=== PATIENT | female | born 1955 | race Caucasian/White ===

== ENCOUNTER 2022-02-04 10:49 | Outpatient (REF) | payer MEDICARE, SELFPAY ==
[2022-02-04 11:16] LABS: Anion Gap 12 (12-20); Blood Urea Nitrogen 10 mg/dL (9-16); Carbon Dioxide 27 mmol/L (22-29); Chloride 104 mmol/L (96-108); Estimated Glomerular Filt Rate > 60; Potassium 4.5 mmol/L (3.3-5.1); Sodium 138 mmol/L (135-145)
== END 2022-02-04 10:50 | disposition home or self-care (01) ==
LOC: HO.LNP 10:49
PROVIDERS: Visit Provider Internal Medicine
DX: I51.81 Takotsubo syndrome (principal)
CPT/HCPCS: 80051; 82565; 84520

== ENCOUNTER 2022-03-28 12:19 | Outpatient (REF) | payer MEDICARE, SELFPAY ==
--- NOTE | ~2022-03-28 | MM_ITS ---
EXAMINATION: MM SCREENING DIGITAL BREAST TOMOSYNTHESIS, BILATERAL CLINICAL INFORMATION: Screening. Asymptomatic. Status post left breast lumpectomy in 2006 COMPARISON: Mammography: None TECHNIQUE: Digital breast tomosynthesis is performed in both the craniocaudal and mediolateral oblique views along with computer-aided detection (CAD). Synthesized 2D images are generated from the tomosynthesis. FINDINGS: The breasts are almost entirely fatty (ACR BI-RADS breast composition Category a). There are no significant masses, abnormal calcifications, or other suspicious abnormalities. Postsurgical changes within the left breast seen. MM/MM tomosynthesis screening BI IMPRESSION: No mammographic evidence of malignancy. ASSESSMENT: BI-RADS 2: Benign RECOMMENDATION: Routine annual mammography screening. This patient's information was entered into a reminder system with a target due date for their next mammogram.
--- NOTE | ~2022-03-28 | MM_ITS ---
EXAMINATION: BONE DENSITOMETRY CLINICAL INDICATION: Menopause. COMPARISON: None (current study represents initial baseline exam). TECHNIQUE: Using a [employer] DXA System (software version: 13.1) manufactured by [employer], dual-energy x-ray absorptiometry was performed of the lumbar spine and left hip. The images are of good technical quality. Summary results are attached. FINDINGS: AP SPINE L1-L4: BMD 0.810 g/cm2, Z-score -1.4, T-score -3.1, osteoporosis. LEFT FEMUR, NECK: BMD 0.695 g/cm2, Z-score -0.9, T-score -2.5, osteoporosis. LEFT FEMUR, TOTAL: BMD 0.737 g/cm2, Z-score -0.9, T-score -2.1, osteopenia. IDENTIFIED RISK FACTORS: Menopause, osteoporosis, rheumatoid arthritis, secondary osteoporosis. HISTORY OF FRACTURE: None listed. MEDICATIONS: Vitamin D. MM/XR DEXA axial skeleton IMPRESSION: 1. DIAGNOSIS: Osteoporosis based on the lowest T-score value of -3.1 in the lumbar spine applying World Health Organization criteria. 2. 10-YEAR FRACTURE RISK PREDICTION, FRAX: According to the guidelines, FRAX calculation should only be performed on patients in the osteopenia bone density category. Therefore, FRAX was not performed on this patient. 3. Treatment Recommendations: NOF guidelines recommend consideration for treatment in postmenopausal women and men age 50 and older presenting with the following: -A hip or vertebral (clinical or morphometric) fracture. -T-score less than or equal to -2.5 at the femoral neck or spine after appropriate evaluation to exclude secondary causes. -Low bone mass at the hip or spine and a 10-year fracture probability by FRAX of greater than or equal to 3% for hip fracture or greater than or equal to 20% for major osteoporotic fracture based on the [place] adapted WHO algorithm. 4. Other Recommendations: All treatment decisions require clinical judgment and consideration of individual patient factors, including patient preferences, comorbidities, previous drug use, risk factors not captured in the FRAX model (e.g. frailty, falls, vitamin D deficiency, increased bone turnover, interval significant decline in bone density) and possible under or overestimation of fracture risk by FRAX. Additional medical evaluation for secondary cause of low bone mineral density may be appropriate. FUTURE SCAN RECOMMENDATION: People with diagnosed cases of osteoporosis or at high risk for fracture should have regular bone mineral density tests. For patients eligible for Medicare, routine testing is allowed once every 2 years. The testing frequency can be increased to one year for patients who have rapidly progressing disease, those who are receiving or discontinuing medical therapy to restore bone mass, or have additional risk factors.
== END 2022-03-28 12:20 | disposition home or self-care (01) ==
LOC: HO.MAMMO 12:19
PROVIDERS: PCP Internal Medicine; Visit Provider Internal Medicine
DX: Z12.31 Encounter for screening mammogram for malignant neoplasm of breast (principal); Z13.820 Encounter for screening for osteoporosis; Z78.0 Asymptomatic menopausal state; Z85.3 Personal history of malignant neoplasm of breast
CPT/HCPCS: 77063; 77067; 77080

== ENCOUNTER 2022-06-28 16:25 | Outpatient (REF) | payer MEDICARE, SELFPAY ==
--- NOTE | ~2022-06-28 | XR_ITS ---
EXAMINATION: XR HIP, RIGHT CLINICAL INFORMATION: Hip pain COMPARISON: CT abdomen and pelvis 02/02/2020. TECHNIQUE: AP view pelvis is performed along with AP and frog-lateral projections of the right hip. FINDINGS: No fracture or dislocation or destructive process. There are degenerative changes lower lumbar spine with disc narrowing and vertebral spurring L4-L5. The SI joints and pubis are unremarkable. Right hip shows no fracture or dislocation or destructive process. No focal disc narrowing or erosive change or chondrocalcinosis. Left hip unremarkable. XR/XR hip RT w [id number] IMPRESSION: -Normal right hip. -Degenerative disc changes lower lumbar spine.
== END 2022-06-28 16:26 | disposition home or self-care (01) ==
LOC: HO.XRAY 16:25
PROVIDERS: PCP Internal Medicine; Visit Provider Internal Medicine
DX: M25.551 Pain in right hip (principal)
CPT/HCPCS: 73502

== ENCOUNTER → 2022-08-27 12:52 | Outpatient (BNVA) | payer MEDICARE, SELFPAY | PROVIDERS: PCP Internal Medicine; Visit Provider Internal Medicine Endocrinology, Diabetes & Metabolism | DX: M81.0 Age-related osteoporosis without current pathological fracture (principal); E16.2 Hypoglycemia, unspecified; Q78.8 Other specified osteochondrodysplasias | CPT/HCPCS: 99202 ==

== ENCOUNTER 2023-02-28 11:08 | Outpatient (REF) | payer MEDICARE, SELFPAY ==
[2023-02-28 11:10] LABS: MANUAL DIFF FLAG NO
[2023-02-28 11:36] LABS: Basophils Absolute Auto 0.1 X10*3/uL (0.0-0.2); Basophils Percent Auto 1.4 % (0-2); Eosinophils Absolute Auto 0.4 X10*3/uL (0.0-0.4); Eosinophils Percent Auto 7.4 % (0-4); Hematocrit 37.5 % (37.0-47.0); Hemoglobin 12.1 g/dl (12.0-16.0); Imm Gran Abs Auto 0.01 X10*3/uL (0.00-0.03); Imm Gran Pct Auto 0.2 % (0.0-0.4); Lymphocytes Absolute Auto 1.7 X10*3/uL (1.2-4.9); Lymphocytes Percent Auto 32.9 % (20-40); Mean Corpuscular HGB Conc 32.3 g/dl (31.0-35.0); Mean Corpuscular Hemoglobin 32.1 pg (27.0-33.0); Mean Corpuscular Volume 99.5 fL (80.0-98.0); Mean Platelet Volume 12.8 fL (9.4-12.3); Monocytes Absolute Auto 0.7 X10*3/uL (0.1-1.2); Monocytes Percent Auto 13.1 % (2-11); Neutrophils Absolute Auto 2.3 x10*3/uL (2.0-8.3); Platelet Count 262 X10*3/uL (160-400); Red Blood Count 3.77 X10*6/uL (4.20-5.50); Red Cell Distribution Width 12.2 % (11.0-16.0)
[2023-02-28 11:38] LABS: Appearance Urine Clear; Color Urine Dark Yellow; Glucose Urine UA Negative (Negative); Leukocyte Esterase Urine Trace (Negative); Nitrite Urine Negative (Negative); UMIC TRIGGER UACC YES; Urine Blood Negative (Negative); Urine Ketones Negative (Negative); Urine Protein Negative (Neg-Trace)
[2023-02-28 11:41] LABS: Bacteria Urine None Seen (None Seen); Hyaline Casts Urine 0-2 /LPF (0-2); RBC Urine 0-2 /HPF (0-2); WBC Urine 0-5 /HPF (0-5)
[2023-02-28 11:50] LABS: Alanine Aminotransferase 13 U/L (0-31); Albumin Level 3.8 g/dL (3.5-5.0); Alkaline Phosphatase 65 U/L (39-117); Anion Gap 13 (12-20); Aspartate Amino Transferase 18 U/L (5-31); Bilirubin Total 0.7 mg/dL (0.0-1.0); Blood Urea Nitrogen 10 mg/dL (9-16); Calcium 9.1 mg/dL (8.4-10.2); Carbon Dioxide 26 mmol/L (22-29); Chloride 106 mmol/L (96-108); Cholesterol 251 mg/dL; Estimated Glomerular Filt Rate > 60; Glucose Fasting 92 mg/dL (60-99); HDL Cholesterol 52 mg/dL; LDL Cholesterol Calculated 182 mg/dl; Potassium 4.1 mmol/L (3.3-5.1); Sodium 141 mmol/L (135-145); Total Protein 6.2 g/dL (6.5-8.0); Triglycerides 87 mg/dL
== END 2023-02-28 11:09 | disposition home or self-care (01) ==
LOC: HO.LNP 11:08
PROVIDERS: Visit Provider Internal Medicine
DX: Z00.00 Encounter for general adult medical examination without abnormal findings (principal); E78.00 Pure hypercholesterolemia, unspecified
CPT/HCPCS: 80053; 80061; 81001; 85025

== ENCOUNTER 2023-03-07 13:56 | Outpatient (REF) | payer MEDICARE, SELFPAY ==
--- NOTE | ~2023-03-07 | US_ITS ---
EXAMINATION: US VENOUS ULTRASOUND WITH DOPPLER LOWER EXTREMITY, LEFT CLINICAL INFORMATION: Swelling COMPARISON: None available. TECHNIQUE: Ultrasound of the deep veins is performed from the hip to the calf with compression sonography and color and pulse Doppler assessment. Spectral analysis with color-flow imaging is performed. FINDINGS: There is normal venous compression and respiratory variation and augmented flow. The visualized common femoral vein, superficial femoral vein, profunda femoral vein, popliteal vein, and the trifurcation region shows no evidence of deep venous thrombosis. There is no significant popliteal fossa cyst. US/US venous duplex LE LT IMPRESSION: No DVT demonstrated in the left lower extremity.
== END 2023-03-07 13:57 | disposition home or self-care (01) ==
LOC: HO.US 13:56
PROVIDERS: PCP Internal Medicine; Visit Provider Internal Medicine
DX: M79.89 Other specified soft tissue disorders (principal)
CPT/HCPCS: 93971

== ENCOUNTER 2023-04-25 10:10 | Outpatient (REF) | payer MEDICARE, SELFPAY ==
[2023-04-25 12:49] LABS: Adenovirus F 40/41 Not Detected (Not Detect.); Astrovirus Not Detected (Not Detect.); Campylobacter Not Detected (Not Detect.); Cryptosporidium Not Detected (Not Detect.); Cyclospora cayetanensis Not Detected (Not Detect.); E. coli EAEC Not Detected (Not Detect.); E. coli EPEC Not Detected (Not Detect.); E. coli ETEC Not Detected (Not Detect.); E. coli STEC Not Detected (Not Detect.); Entamoeba histolytica Not Detected (Not Detect.); Giardia lamblia Not Detected (Not Detect.); Norovirus GI/GII Not Detected (Not Detect.); Plesiomonas shigelloides Not Detected (Not Detect.); Rotavirus A Not Detected (Not Detect.); Salmonella Not Detected (Not Detect.); Sapovirus Not Detected (Not Detect.); Shigella sp./EIEC Not Detected (Not Detect.); Vibrio Not Detected (Not Detect.); Vibrio Cholerae Not Detected (Not Detect.); Yersinia enterocolitica Not Detected (Not Detect.)
== END 2023-04-25 10:11 | disposition home or self-care (01) ==
LOC: HO.LNP 10:10
PROVIDERS: Visit Provider Internal Medicine
DX: R19.7 Diarrhea, unspecified (principal)
CPT/HCPCS: 87507

== ENCOUNTER 2023-06-02 16:10 | Outpatient (REF) | payer MEDICARE, SELFPAY | END 2023-06-02 16:11 | disposition home or self-care (01) | LOC: HO.LNP 16:10 | PROVIDERS: Visit Provider Internal Medicine | DX: N39.0 Urinary tract infection, site not specified (principal) | CPT/HCPCS: 81001; 87086 ==

== ENCOUNTER 2023-09-05 11:26 | Outpatient (REF) | payer MEDICARE, SELFPAY ==
[2023-09-05 11:55] LABS: Cholesterol 189 mg/dL (<200); HDL Cholesterol 30 mg/dL (>40); LDL Cholesterol Calculated 128 mg/dL (<100); Triglycerides 156 mg/dL (<150)
[2023-09-05 11:59] LABS: Alanine Aminotransferase 26 U/L (0-31); Albumin Level 3.1 g/dL (3.5-5.0); Alkaline Phosphatase 85 U/L (39-117); Aspartate Amino Transferase 33 U/L (5-31); Bilirubin Direct 0.2 mg/dL (0.0-0.5); Bilirubin Total 0.4 mg/dL (0.0-1.0); Total Protein 6.2 g/dL (6.5-8.0)
[2023-09-05 15:05] LABS: Reflex LDLD? No
== END 2023-09-05 11:27 | disposition home or self-care (01) ==
LOC: HO.LNP 11:26
PROVIDERS: Visit Provider Internal Medicine
DX: E78.00 Pure hypercholesterolemia, unspecified (principal)
CPT/HCPCS: 80061; 80076

== ENCOUNTER 2023-09-11 11:45 | Outpatient (REF) | payer MEDICARE, SELFPAY ==
[2023-09-11 12:28] LABS: Appearance Urine Clear; Color Urine Yellow; Glucose Urine UA Negative (Negative); Leukocyte Esterase Urine Moderate (2+) (Negative); Nitrite Urine Positive (Negative); PH 5.5 (5.0-9.0); Specific Gravity - Urine 1.015 (1.005-1.025); UMIC TRIGGER UACC YES; Urine Blood Trace (Negative); Urine Ketones Negative (Negative); Urine Protein Trace mg/dL (Neg-Trace)
[2023-09-11 12:31] LABS: Bacteria Urine 4+ (None Seen); Hyaline Casts Urine 0-2 /LPF (0-2); RBC Urine 0-2 /HPF (0-2); UACC Culture Trigger YES; WBC Urine >50 /HPF (0-5)
== END 2023-09-11 11:46 | disposition home or self-care (01) ==
LOC: HO.LNP 11:45
PROVIDERS: Visit Provider Internal Medicine
DX: N39.0 Urinary tract infection, site not specified (principal)
CPT/HCPCS: 81001; 87086; 87088; 87186

== ENCOUNTER 2023-10-13 13:14 | Outpatient (REF) | payer MEDICARE, SELFPAY ==
[2023-10-13 13:44] LABS: Alanine Aminotransferase 28 U/L (0-31); Albumin Level 3.2 g/dL (3.5-5.0); Alkaline Phosphatase 66 U/L (39-117); Anion Gap 10 (12-20); Aspartate Amino Transferase 26 U/L (5-31); Bilirubin Total 0.6 mg/dL (0.0-1.0); Blood Urea Nitrogen 11 mg/dL (9-16); Calcium 9.2 mg/dL (8.4-10.2); Carbon Dioxide 27 mmol/L (22-29); Chloride 107 mmol/L (96-108); Estimated Glomerular Filt Rate > 60; Glucose Random 101 mg/dL (60-115); Iron 128 mcg/dL (30-160); Magnesium 1.9 mg/dL (1.6-2.6); Percent Iron Saturation 55 % (15-50); Potassium 3.9 mmol/L (3.3-5.1); Sodium 140 mmol/L (135-145); Total Iron Binding Capacity 232 mcg/dL (228-428); Total Protein 6.6 g/dL (6.5-8.0); Unsaturated Iron Binding 104 ug/dL
== END 2023-10-13 13:15 | disposition home or self-care (01) ==
LOC: HO.LNP 13:14
PROVIDERS: Visit Provider Internal Medicine
DX: R25.2 Cramp and spasm (principal)
CPT/HCPCS: 80053; 83540; 83735

== ENCOUNTER 2023-10-20 11:35 | Outpatient (REF) | payer MEDICARE, SELFPAY ==
[2023-10-20 11:50] LABS: Appearance Urine Clear; Color Urine Yellow; Glucose Urine UA Negative (Negative); Leukocyte Esterase Urine Trace (Negative); Nitrite Urine Negative (Negative); UMIC TRIGGER UACC YES; Urine Blood Negative (Negative); Urine Ketones Negative (Negative); Urine Protein Negative (Neg-Trace)
[2023-10-20 11:54] LABS: Bacteria Urine Trace (None Seen); Hyaline Casts Urine 0-2 /LPF (0-2); RBC Urine 0-2 /HPF (0-2); WBC Urine 0-5 /HPF (0-5)
== END 2023-10-20 11:36 | disposition home or self-care (01) ==
LOC: HO.LNP 11:35
PROVIDERS: Visit Provider Internal Medicine
DX: R31.9 Hematuria, unspecified (principal)
CPT/HCPCS: 81001

== ENCOUNTER 2024-01-29 06:49 | Emergency (ER) | payer MEDICARE, SELFPAY ==
--- NOTE | ~2024-01-29 | XR_ITS ---
EXAMINATION: XR WRIST, RIGHT CLINICAL INFORMATION: Pain and swelling COMPARISON: None available. TECHNIQUE: PA, lateral, and oblique views of the right wrist. Dedicated scaphoid view. FINDINGS: The bones and soft tissues are normal. No fracture. Positive ulnar variance. Normal joint spaces. No erosions or abnormal soft tissue calcifications. XR/XR wrist RT min 3V IMPRESSION: No acute bony abnormality.
[2024-01-29 07:04] VITALS: BP 146/49; PULSE 81; RESP 16; TEMP 36; O2SAT 99; BMI 23.0
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
--- NOTE | 2024-01-29 09:19 | PC.NURSE ---
PT HAS BEEN SPLINTED FOR COMFORT WITH GOOD CMS NOTED
== END 2024-01-29 09:22 | disposition home or self-care (01) ==
PROVIDERS: Emergency Provider Emergency Medicine
DX: S63.501A Unspecified sprain of right wrist, initial encounter (principal); M25.531 Pain in right wrist; V47.5XXA Car driver injured in collision with fixed or stationary object in traffic accident, initial encounter; Y93.9 Activity, unspecified; Y92.410 Unspecified street and highway as the place of occurrence of the external cause; Y99.8 Other external cause status; Z79.899 Other long term (current) drug therapy
CPT/HCPCS: 73110; 99282; 99283

== ENCOUNTER 2024-04-22 11:12 | Outpatient (REF) | payer MEDICARE, SELFPAY ==
[2024-04-22 11:37] LABS: Appearance Urine Clear; Color Urine Yellow; Glucose Urine UA Negative (Negative); Leukocyte Esterase Urine Moderate (2+) (Negative); Nitrite Urine Negative (Negative); UMIC TRIGGER UACC YES; Urine Blood Negative (Negative); Urine Ketones Negative (Negative); Urine Protein Negative (Neg-Trace)
[2024-04-22 12:20] LABS: Bacteria Urine None Seen (None Seen); Hyaline Casts Urine 0-2 /LPF (0-2); RBC Urine 0-2 /HPF (0-2); WBC Urine 0-5 /HPF (0-5)
== END 2024-04-22 11:13 | disposition home or self-care (01) ==
LOC: HO.LNP 11:12
PROVIDERS: Visit Provider Internal Medicine
DX: N39.0 Urinary tract infection, site not specified (principal)
CPT/HCPCS: 81001

== ENCOUNTER 2024-04-29 11:12 | Outpatient (REF) | payer MEDICARE, SELFPAY ==
[2024-04-29 11:15] LABS: MANUAL DIFF FLAG NO
[2024-04-29 11:46] LABS: Appearance Urine Clear; Color Urine Yellow; Glucose Urine UA Negative (Negative); Leukocyte Esterase Urine Negative (Negative); Nitrite Urine Negative (Negative); PH 5.5 (5.0-9.0); Specific Gravity - Urine 1.015 (1.005-1.025); Urine Blood Negative (Negative); Urine Ketones Negative (Negative); Urine Protein Negative (Neg-Trace)
[2024-04-29 11:48] LABS: Basophils Percent Auto 1.2 % (0-2); Eosinophils Absolute Auto 0.2 X10*3/uL (0.0-0.4); Eosinophils Percent Auto 4.4 % (0-4); Hematocrit 37.4 % (37.0-47.0); Hemoglobin 12.4 g/dl (12.0-16.0); Imm Gran Abs Auto 0.01 X10*3/uL (0.00-0.03); Imm Gran Pct Auto 0.3 % (0.0-0.4); Lymphocytes Absolute Auto 1.2 X10*3/uL (1.2-4.9); Lymphocytes Percent Auto 36.3 % (20-40); Mean Corpuscular HGB Conc 33.2 g/dl (31.0-35.0); Mean Corpuscular Hemoglobin 32.5 pg (27.0-33.0); Mean Corpuscular Volume 98.2 fL (80.0-98.0); Monocytes Absolute Auto 0.4 X10*3/uL (0.1-1.2); Monocytes Percent Auto 12.3 % (2-11); Neutrophils Absolute Auto 1.6 x10*3/uL (2.0-8.3); Neutrophils Percent Auto 45.5 % (45-73); Platelet Count 219 X10*3/uL (160-400); Red Blood Count 3.81 X10*6/uL (4.20-5.50); Red Cell Distribution Width 11.6 % (11.0-16.0); White Blood Count 3.4 X10*3/uL (4.8-10.8)
[2024-04-29 11:49] LABS: Bacteria Urine Trace (None Seen); Hyaline Casts Urine 0-2 /LPF (0-2); RBC Urine 0-2 /HPF (0-2); WBC Urine 0-5 /HPF (0-5)
[2024-04-29 12:05] LABS: Alanine Aminotransferase 20 U/L (0-31); Albumin Level 3.7 g/dL (3.5-5.0); Alkaline Phosphatase 73 U/L (39-117); Anion Gap 14 (12-20); Aspartate Amino Transferase 23 U/L (5-31); Bilirubin Total 0.4 mg/dL (0.0-1.0); Blood Urea Nitrogen 8 mg/dL (9-16); Calcium 9.2 mg/dL (8.4-10.2); Carbon Dioxide 27 mmol/L (22-29); Chloride 106 mmol/L (96-108); Cholesterol 215 mg/dL (<200); Estimated Glomerular Filt Rate > 60; Glucose Fasting 72 mg/dL (60-99); HDL Cholesterol 55 mg/dL (>40); LDL Cholesterol Calculated 142 mg/dL (<100); Potassium 3.8 mmol/L (3.3-5.1); Sodium 143 mmol/L (135-145); Total Protein 6.5 g/dL (6.5-8.0); Triglycerides 92 mg/dL (<150)
== END 2024-04-29 11:13 | disposition home or self-care (01) ==
LOC: HO.LNP 11:12
PROVIDERS: Visit Provider Internal Medicine
DX: Z00.00 Encounter for general adult medical examination without abnormal findings (principal); E78.00 Pure hypercholesterolemia, unspecified
CPT/HCPCS: 80053; 80061; 81001; 85025

== ENCOUNTER 2024-05-20 10:53 | Outpatient (REF) | payer MEDICARE, SELFPAY ==
[2024-05-20 10:56] LABS: MANUAL DIFF FLAG NO
[2024-05-20 10:58] LABS: Basophils Absolute Auto 0.1 X10*3/uL (0.0-0.2); Basophils Percent Auto 1.3 % (0-2); Eosinophils Absolute Auto 0.3 X10*3/uL (0.0-0.4); Eosinophils Percent Auto 7.2 % (0-4); Hemoglobin 11.7 g/dl (12.0-16.0); Imm Gran Abs Auto 0.01 X10*3/uL (0.00-0.03); Imm Gran Pct Auto 0.2 % (0.0-0.4); Lymphocytes Absolute Auto 2.2 X10*3/uL (1.2-4.9); Mean Corpuscular HGB Conc 32.5 g/dl (31.0-35.0); Mean Corpuscular Hemoglobin 32.1 pg (27.0-33.0); Mean Corpuscular Volume 98.9 fL (80.0-98.0); Mean Platelet Volume 12.4 fL (9.4-12.3); Monocytes Absolute Auto 0.6 X10*3/uL (0.1-1.2); Monocytes Percent Auto 13.3 % (2-11); Neutrophils Absolute Auto 1.4 x10*3/uL (2.0-8.3); Platelet Count 221 X10*3/uL (160-400); Red Blood Count 3.64 X10*6/uL (4.20-5.50); Red Cell Distribution Width 11.9 % (11.0-16.0); White Blood Count 4.6 X10*3/uL (4.8-10.8)
== END 2024-05-20 10:54 | disposition home or self-care (01) ==
LOC: HO.LNP 10:53
PROVIDERS: Visit Provider Internal Medicine
DX: D70.9 Neutropenia, unspecified (principal)
CPT/HCPCS: 85025

== ENCOUNTER 2024-05-24 11:51 | Outpatient (REF) | payer MEDICARE, SELFPAY ==
--- NOTE | ~2024-05-24 | MM_ITS ---
EXAMINATION: MM SCREENING DIGITAL BREAST TOMOSYNTHESIS, BILATERAL CLINICAL INFORMATION: Screening. Asymptomatic. There is a history of treated left breast cancer. COMPARISON: Mammography: This study is compared with prior exams dating back to TECHNIQUE: Digital breast tomosynthesis is performed in both the craniocaudal and mediolateral oblique views along with computer-aided detection (CAD). Synthesized 2D images are generated from the tomosynthesis. FINDINGS: There are scattered areas of fibroglandular density (ACR BI-RADS breast composition Category b). There are no significant masses, abnormal calcifications, or other abnormalities. Posttreatment changes are present in the left axilla and medial aspect of the left breast. There is benign, coarse dystrophic calcification in the retroareolar region of the left breast. MM/MM tomosynthesis screening BI IMPRESSION: No mammographic evidence of malignancy. ASSESSMENT: BI-RADS BI-RADS 2 - Benign Findings RECOMMENDATION: Routine annual mammography screening. 1 year F/U This examination should not preclude the clinical evaluation of a suspicious palpable abnormality. This patient's information was entered into a reminder system with a target due date for their next mammogram.
== END 2024-05-24 11:52 | disposition home or self-care (01) ==
LOC: HO.MAMMO 11:51
PROVIDERS: PCP Internal Medicine; Visit Provider Internal Medicine
DX: Z12.31 Encounter for screening mammogram for malignant neoplasm of breast (principal)
CPT/HCPCS: 77063; 77067

== ENCOUNTER → 2024-05-24 12:00 | Outpatient (BNV) | payer MEDICARE, SELFPAY | PROVIDERS: PCP Internal Medicine; Visit Provider Radiology Diagnostic Radiology | DX: Z12.31 Encounter for screening mammogram for malignant neoplasm of breast (principal) | CPT/HCPCS: 77063; 77067 ==

== ENCOUNTER 2024-06-14 14:18 | Outpatient (REF) | payer MEDICARE, SELFPAY ==
--- NOTE | ~2024-06-14 | FL_ITS ---
EXAMINATION: Modified Barium Swallow CLINICAL INFORMATION: Dysphagia COMPARISON: None TECHNIQUE: Modified barium swallow was performed under lateral fluoroscopy with patient in standing position. Barium mixed with solids and liquids of different consistencies was administered by the speech pathologist. Examination was recorded in the fluoroscopy suite. FINDINGS: Trace laryngeal penetration is seen with thin consistency barium. No subglottic aspiration was observed during this examination. FLUOROSCOPY TIME: 1 minute 49 seconds Number of Spot Images: DOSE AREA PRODUCT: 408.8 uGy-m2 (microgray-meter squared) FL/FL barium swallow modified IMPRESSION: Trace laryngeal penetration is seen with thin consistency barium. No subglottic aspiration was observed during this examination. Refer to the full speech therapy report for further clarification This procedure was performed by Carmine Solorzano PA-C, and supervised by Dr. Lee
--- NOTE | 2024-06-15 14:58 | MHC.SL.IMP ---
Date of Plan of Treatment: 06/14/24 Onset of Symptoms/Illness: 06/14/22 Date Treatment Started: 06/14/24 Admitting Diagnosis: T17.928A Food in respiratory tract Primary Speech & Language Diagnosis: R13.12 Oropharyngeal Phase Dysphagia Reason for Today's Visit: 62694 Modified Barium Swallow Study Pre-evaluation Dietary Consistencies: Regular Pre-evaluation Liquid Consistency: Thin Pre-evaluation Medication Administration: Whole with Liquid Medical History: Modified Barium Swallow Study Fluoroscopic Evaluation of Swallowing Function CPT Code 48348 Evaluation Year: 2023 Reason for Study: Patient reporting difficulty swallowing. Referring Physician: Yfn Palmer MD Evaluating Clinician: Hannah Henry MA, CCC-OPTIMIZATION CONSULTANT Study Number: 1 Patient Name: Rabia Wagner Status: Outpatient, Ambulatory Age: 68 Gender: Female Medical History Patient reports history of reflux for 40 years. Current (pre-evaluation) Intake/Diet: Route: PO Diet Grade: Regular Liquid Consistencies: Thin Pre-Study Functional Oral Intake Scale (FOIS): 7- Total oral intake with no restrictions Pain: None reported at time of study SUBJECTIVE: Patient is a 68 year old female referred for a modified barium swallow study by Yfn Palmer MD. Patient reports she has had chronic reflux for 40 years, which had been so severe at one point that she needed to sleep sitting up, and that she also has trouble swallowing for many years. She reports that she ?inhales food, drinks, and even saliva? causing her to cough when swallowing. Additionally, with certain foods, such as vinegar and pepper, her ?tonsil feels like it is on fire.? She has these episodes daily, though she says it does not necessarily happen every time she swallows, but seems to occur at random. Patient denies odynophagia, but says she experiences globus sensation, with pills and vitamins getting stuck in her throat. She says it takes 2 minutes to dislodge the pills when taking multiple sips of water. Her current diet consists of unmodified textures regular solids and thin liquids. She denies avoiding any particular foods at this time. Oral Motor Exam Facial Symmetry: Symmetrical Mouth Occlusion: Normal Oral-Facial Teeth Characteristics: Dentures Oral-Facial Lip Pucker Description: Normal Oral-Facial Smile (Lips) Description: Normal Oral-Facial Puff Cheeks Description: Normal Tongue Size: Normal Tongue Excursion Description: Normal Tongue Range of Movement Description: Normal Tongue Speed of Movement Description: Normal Tongue Strength of Movement (against opposing pressure): Normal Tongue Movement Characteristics: Normal/Absent Food and Liquid Trials: Oral Impairment: Lip Closure: Did not test Oral Impairment: Tongue Control During Bolus Hold: Did not test Oral Impairment: Bolus Preparation/Mastication: 0=Timely and efficient chewing and mashing Oral Impairment: Bolus Transport/Lingual Motion: 1= Delayed initiation of tongue motion Oral Impairment: Oral Residue: 2=Residue collection on oral structures Oral Impairment:Initiation of Pharyngeal Swallow: 3=Bolus head in pyriforms Pharyngeal Impairment: Soft Palate Elevation: 0=No bolus between soft palate (SP)/pharyngeal wall (PW) Pharyngeal Impairment: Laryngeal Elevation: 1=Partial thyroid cartilage/arytenoids to epiglottic petiole movement Pharyngeal Impairment: Anterior Hyoid Excursion: 1=Partial anterior movement Pharyngeal Impairment: Epiglottic Movement: 1=Partial inversion Pharyngeal Impairment: Laryngeal Vestibular Closure:: 1=Incomplete: narrow column air/contrast in laryngeal vestibule Pharyngeal Impairment: Pharyngeal Stripping Wave: 0=Present: complete Pharyngeal Impairment: Pharyngeal Contraction: Did not test Pharyngeal Impairment: Pharyngoesophageal Segment Openin=Complete distension and complete duration: no obstruction of flow Pharyngeal Impairment: Tongue Base (TB) Retraction: 1=Trace column of contrast/air between TB and posterior PW Pharyngeal Impairment: Pharyngeal Residue: 2=Collection of residue within or on pharyngeal structures Pharyngeal Impairment: Esophageal Clearance Upright Position: Did not test Impressions and Recommendations Clinical Observations: OBJECTIVE: Time-out: performed at 15:00 Evaluation Start: 14:30; Stop: 14:45 Patient Positioning: Standing Viewing Planes: LATERAL ONLY Contrast: MBSImP? Standardized Protocol using commercially prepared, standardized Barium viscosities, including: Varibar? THIN LIQUID (40% w/v, <15 cps) , 1/2 Shortbread Cookie (1 x1 x.25 ) MBSImP ID: [id number] MBSImP Results: Lip closure for intraoral bolus containment could not be assessed due to logistical reasons not related to physiologic impairment. Tongue control during bolus hold could not be assessed due to logistical reasons not related to physiologic impairment. Bolus preparation and mastication resulted in timely and efficient chewing and mashing. Bolus transport/lingual motion demonstrated delayed initiation of tongue motion. Oral residue was a collection on oral structures. Initiation of the pharyngeal swallow occurred when the bolus head was in the pyriform sinuses. Soft palate elevation resulted in no bolus between the soft palate and the pharyngeal wall. Laryngeal elevation was decreased, with partial superior movement of the thyroid cartilage/partial approximation of the arytenoids to the epiglottic petiole. Anterior hyoid excursion demonstrated partial anterior movement. Epiglottic movement resulted in partial inversion. Laryngeal vestibular closure was incomplete, with a narrow column of air/contrast noted within the laryngeal vestibule at the height of the swallow. Pharyngeal stripping wave was present and complete. Pharyngeal contraction could not be determined due to logistical reasons not related to physiologic impairment. Pharyngoesophageal segment opening was completely distended for complete duration with no obstruction of bolus flow. Tongue base retraction allowed a trace column of contrast or air between the retracted tongue base and the posterior pharyngeal wall. Pharyngeal residue was a collection of residue within or on pharyngeal structures. Esophageal clearance in the upright position could not be assessed due to logistical reasons not related to physiologic impairment. Oral Impairment Score: 6 (absence of score, component 1component 2) Pharyngeal Impairment Score: 6 (absence of score, component 13) Esophageal Impairment Score: --- (absence of score, component 17) Laryngeal Penetration and Aspiration: Flash Penetration was observed in today's study. Thin Contrast entered the airway, remained above the vocal folds, and was ejected from the airway. ASSESSMENT: This exam was conducted by the radiologist and the speech pathologist. The patient was standing for lateral view only. She was able to feed herself without difficulty and trialed the following liquid and solid consistencies: -Thin (via self-administered cup, taking individual sips and sequential sips) -Puree (applesauce) -Regular solid (shortbread cookie) Patient demonstrated timely and efficient mastication. Lingual transport was mildly delayed in initiation, but with brisk lingual movement. There was pooling of trace residue in the floor of mouth with trials of thin liquids. Mild coating of residue on the tongue with trials of regular texture solid. Residuals were cleared with sips of liquid. Pharyngeal swallow trigger was at times delayed, initiated at the level of the pyriform sinuses. No evidence of nasopharyngeal reflux. Partial laryngeal elevation with partial epiglottic inversion and incomplete laryngeal vestibular closure. There was trace penetration above the vocal folds intermittently when patient took sequential sips of thin liquid. Contrast spontaneously ejected from the airway. No evidence of aspiration during this exam. Trace pooling of liquid in the valleculae and pyriform sinuses with liquids with mild retention with accumulative bites of regular solid texture. Patient was able to eliminate pharyngeal residue with sips of liquid. The following compensatory strategies have not been used until today's study, but when employed, improved swallowing function: Liquid Wash eliminated Oral Residue, Pharyngeal Residue Additional Swallow(s) per Bolus eliminated Oral Residue, Pharyngeal Residue Liquid Intake Recommendation: Thin Liquid Intake Strategies: Small Sips Dietary Recommendations: Regular Medication Administration: Whole with Puree Please contact the pharmacy regarding appropriate crushable or liquid drug formulations that are available whenever modified delivery is recommended. Compensatory Strategies Recommended: Sitting Upright (90 deg), Double Swallow, Small Bites and Sips, Alternate Liquids/Solids, Rate of Ingestion Change Recommendation for Speech Therapy: Text Comment: Intake Recommendations: Route: PO Diet Grade: Regular Liquid Consistencies: Thin Post-Study Functional Oral Intake Scale (FOIS): 7- Total oral intake with no restrictions There was flash penetration above the vocal folds of trace thin liquid when patient took rapid, consecutive sips. Contrast spontaneously ejected from the airway. No evidence of aspiration during this exam. Mild oral and pharyngeal residuals were cleared with liquid wash. Suggested Referrals: The patient might benefit from a referral to: Gastroenterology Indication for Referral: Reports of chronic reflux Therapy Recommendations: Therapy will be discontinued. Further speech therapy is not indicated at this time. Recommend patient to continue unmodified dietary textures- Regular solids and Thin liquids with strategies to maximize safety: -Take small bites of food -Chew food well -Moisten food with sauces and gravies -Avoid foods which are dry or crumbly -Alternate bites of food with sips of liquid -Take small sips, one sip at a time -Avoid drinking quickly or taking consecutive sips -Ensure upright position at 90 degrees during PO intake and maintain for at least 30-45 minutes afterwards Patient may benefit from having a consultation with Gastroenterology given her reports of chronic reflux. Patient is recommended to continue monitoring her dysphagia. If there are any changes or worsening of symptoms, consult with PCP, at which point a repeat-evaluation may be warranted. Clinician - Supplemental, Miscellaneous Communication: It is important to note MBSS objective studies are snapshots in time and Patient function might vary with factors such as time of day or concomitant medical conditions. For this reason, the final treatment plan for this patient should rest with their medical care team. Additional recommendations should be considered with the totality of the Patient in mind. Thank for the opportunity to participate in the care of this patient. If you have any questions about the content of this report, please contact the [facility] at [facility]. Education: Education regarding findings from today's study and plans for therapy were provided to Patient only through Verbal Instruction. Understanding was expressed by the Patient only. [employer] Clinician/Clinical Fellow: No Supervisory Statement: N/A Speech Language Pathologist: Hannah Henry M.A., CCC-OPTIMIZATION CONSULTANT
== END 2024-06-14 14:19 | disposition home or self-care (01) ==
LOC: HO.XRAY 14:18
PROVIDERS: Visit Provider Internal Medicine
DX: R13.12 Dysphagia, oropharyngeal phase (principal); T17.928A Food in respiratory tract, part unspecified causing other injury, initial encounter
CPT/HCPCS: 74230; 92611

== ENCOUNTER → 2024-06-14 14:21 | Outpatient (BNV) | payer MEDICARE, SELFPAY | PROVIDERS: Visit Provider Physician Assistant Surgical | DX: R13.10 Dysphagia, unspecified (principal) | CPT/HCPCS: 74230 ==

== ENCOUNTER 2024-06-23 09:11 | Outpatient (REF) | payer MEDICARE, SELFPAY ==
--- NOTE | ~2024-06-23 | XR_ITS ---
EXAMINATION: XR ELBOW, RIGHT CLINICAL INFORMATION: Carpal tunnel syndrome COMPARISON: None available. TECHNIQUE: AP, lateral, and oblique views of the right elbow. FINDINGS: No fracture or joint effusion. Alignment is anatomic. Joint spaces are maintained. XR/XR elbow RT min 3V IMPRESSION: No acute findings. Study is assigned for dictation on July 12, 2024
== END 2024-06-23 09:12 | disposition home or self-care (01) ==
LOC: HO.HOSX 09:11
PROVIDERS: PCP Internal Medicine; Visit Provider Physical Medicine & Rehabilitation
DX: G56.01 Carpal tunnel syndrome, right upper limb (principal); G56.20 Lesion of ulnar nerve, unspecified upper limb; M25.521 Pain in right elbow; Z87.39 Personal history of other diseases of the musculoskeletal system and connective tissue
CPT/HCPCS: 73080; 99202

== ENCOUNTER 2024-06-23 09:11 | Outpatient (AMB) | payer MEDICARE, SELFPAY ==
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
[2024-06-23 09:18] VITALS: BMI 22.9
== END 2024-06-23 09:57 | disposition home or self-care (01) ==
PROVIDERS: PCP Internal Medicine; Visit Provider Physical Medicine & Rehabilitation
DX: G56.01 Carpal tunnel syndrome, right upper limb (principal); G56.21 Lesion of ulnar nerve, right upper limb; Z87.39 Personal history of other diseases of the musculoskeletal system and connective tissue; M25.521 Pain in right elbow
CPT/HCPCS: 99203; 99213

== ENCOUNTER 2024-07-01 11:06 | Outpatient (REF) | payer MEDICARE, SELFPAY ==
[2024-07-01 11:08] LABS: MANUAL DIFF FLAG NO
[2024-07-01 11:20] LABS: Basophils Absolute Auto 0.1 X10*3/uL (0.0-0.2); Basophils Percent Auto 2.1 % (0-2); Eosinophils Absolute Auto 0.3 X10*3/uL (0.0-0.4); Eosinophils Percent Auto 9.1 % (0-4); Hematocrit 37.8 % (37.0-47.0); Hemoglobin 12.1 g/dl (12.0-16.0); Lymphocytes Absolute Auto 1.7 X10*3/uL (1.2-4.9); Lymphocytes Percent Auto 45.2 % (20-40); Mean Corpuscular Hemoglobin 31.8 pg (27.0-33.0); Mean Corpuscular Volume 99.2 fL (80.0-98.0); Mean Platelet Volume 12.3 fL (9.4-12.3); Monocytes Absolute Auto 0.4 X10*3/uL (0.1-1.2); Monocytes Percent Auto 11.2 % (2-11); Neutrophils Absolute Auto 1.2 x10*3/uL (2.0-8.3); Neutrophils Percent Auto 32.4 % (45-73); Platelet Count 202 X10*3/uL (160-400); Red Blood Count 3.81 X10*6/uL (4.20-5.50); Red Cell Distribution Width 11.9 % (11.0-16.0); White Blood Count 3.7 X10*3/uL (4.8-10.8)
== END 2024-07-01 11:07 | disposition home or self-care (01) ==
LOC: HO.LNP 11:06
PROVIDERS: Visit Provider Internal Medicine
DX: D72.820 Lymphocytosis (symptomatic) (principal)
CPT/HCPCS: 85025

== ENCOUNTER 2024-07-02 13:45 | Outpatient (REF) | payer MEDICARE, SELFPAY ==
--- NOTE | 2024-07-02 13:49 | EMG_ITS ---
Chief complaint: Right hand numbness, see past notes Reason for referral: Evaluate for Carpal Tunnel Syndrome Procedure done: Right upper extremity NCS/EMG Precautions and/or limitations: None The limb temperature was monitored continuously and remained between 32-36 degrees C during the performance of the NCS. Nerve Conduction Studies Anti Sensory Summary Table ?Stim Site NR Onset (ms) Norm Onset (ms) Peak (ms) Norm Peak (ms) O-P Amp (?V) Norm O-P Amp Site1 Site2 Delta-0 (ms) Dist (cm) Noah (m/s) Norm Noah (m/s) Right Median Anti Sensory (2nd Digit) Wrist ? 2.8 3.6 <3.6 13.0 >10 Wrist 2nd Digit 2.8 14.0 50 Right Ulnar Anti Sensory (5th Digit) Wrist ? 0.9 2.9 <3.7 16.7 >15.0 Wrist 5th Digit 0.9 14.0 156 Motor Summary Table ?Stim Site NR Onset (ms) Norm Onset (ms) O-P Amp (mV) Norm O-P Amp iAmp (mV) Amp (1st) (%) Site1 Site2 Delta-0 (ms) Dist (cm) Noah (m/s) Norm Noah (m/s) Right Median Motor (Abd Poll Brev) Wrist ? 3.8 <3.9 9.0 >4.5 10.3 100.0 Elbow Wrist 4.1 22.0 54 >45 Elbow ? 7.9 9.2 10.6 102.2 Right Ulnar Motor (Abd Dig Minimi) Wrist ? 2.7 <3.0 6.9 >5 8.4 100.0 B Elbow Wrist 3.5 21.0 60 >45 B Elbow ? 6.2 6.9 8.2 100.0 A Elbow B Elbow 1.2 10.0 83 >45 A Elbow ? 7.4 7.2 8.6 104.3 Comparison Summary Table ?Stim Site NR Peak (ms) Norm Peak (ms) P-T Amp (?V) Site1 Site2 Delta-P (ms) Norm Delta (ms) Right Median/Radial Dig I Comparison (Digit 1 - 10cm) Median ? 3.3 <2.9 33.4 Median Radial 0.7 Radial ? 2.6 <2.8 12.8 EMG ?Side Muscle Nerve Root Ins Act Fibs Psw Amp Dur Poly Recrt Int Pat Comment Right 1stDorInt Ulnar C8-T1 Nml Nml Nml Nml Nml 0 Nml Complete Right FlexCarRad Median C6-7 Nml Nml Nml Nml Nml 0 Nml Complete Right Biceps Musculocut C5-6 Nml Nml Nml Nml Nml 0 Nml Complete Right Triceps Radial C6-7-8 Nml Nml Nml Nml Nml 0 Nml Complete Right Deltoid Axillary C5-6 Nml Nml Nml Nml Nml 0 Nml Complete FINDINGS: Significant interlatency difference between right median and radial sensory nerves, 0.7. Otherwise, rest of motor and sensory nerves tested showed normal latencies, amplitudes and conduction velocities. Concentric needle EMG was performed in selected muscles of the right upper extremity. Study did not reveal signs of electric abnormalities as shown in the table above. IMPRESSION: 1. This is a normal an abnormal study. 2. There is electrodiagnostic evidence for borderline right median neuropathy at the wrist, still consistent with Carpal Tunnel Syndrome. 3. There is no electrodiagnostic evidence for ulnar neuropathy, brachial plexopathy, or cervical radiculopathy. Thank you for your kind referral. Marely Rojas MD, MATIAS Board Certified, [place] Board [employer] Medicine and Rehabilitation (ABPMR) Board Certified, [place] Board of Electrodiagnostic Medicine (ABEM) [facility]OD[facility] [id number] [facility]
== END 2024-07-02 13:46 | disposition home or self-care (01) ==
LOC: HO.NEURO 13:45
PROVIDERS: PCP Internal Medicine; Visit Provider Physical Medicine & Rehabilitation
DX: G56.01 Carpal tunnel syndrome, right upper limb (principal); G56.20 Lesion of ulnar nerve, unspecified upper limb; M25.521 Pain in right elbow
CPT/HCPCS: 95886; 95909

== ENCOUNTER → 2024-07-02 13:49 | Outpatient (BNV) | payer MEDICARE, SELFPAY | PROVIDERS: PCP Internal Medicine; Visit Provider Physical Medicine & Rehabilitation | DX: G56.01 Carpal tunnel syndrome, right upper limb (principal) | CPT/HCPCS: 95886; 95909 ==

== ENCOUNTER 2024-08-11 09:16 | Outpatient (REF) | payer MEDICARE, SELFPAY ==
--- NOTE | ~2024-08-11 | XR_ITS ---
EXAMINATION: XR SHOULDER, LEFT CLINICAL INFORMATION: Left shoulder pain COMPARISON: None available. TECHNIQUE: AP external rotation, Grashey, scapular Y, and axillary views of the left shoulder. FINDINGS: Severe degenerative changes with joint space narrowing and tiny osteophytes. XR/XR shoulder LT min 2V IMPRESSION: Severe degenerative changes of the left shoulder joint. Electronically signed by: Samira Morris MD 09/27/2024 02:21 PM AARON
--- NOTE | ~2024-08-11 | XR_ITS ---
EXAMINATION: XR BILATERAL HIPS WITH AP PELVIS CLINICAL INFORMATION: Pain COMPARISON: 06/28/2022 TECHNIQUE: AP view of the pelvis and single views of each hip were obtained. FINDINGS: No fracture. Hip joint spaces are maintained. Alignment is anatomic. Sacroiliac joints and pubic symphysis are normal. No abnormal soft tissue calcifications. XR/XR hips HONEY min 3V IMPRESSION: Normal pelvis and hips. Electronically signed by: Samira Morris MD 09/27/2024 02:08 PM AARON BOONE
--- NOTE | ~2024-08-11 | XR_ITS ---
EXAMINATION: XR lumbar spine 2-3V CLINICAL INFORMATION: M54.9 - Dorsalgia, unspecified COMPARISON: None TECHNIQUE: 3 views of the lumbar spine FINDINGS: 5 nonrib-bearing lumbar-type vertebral bodies. Vertebral body heights are maintained. Alignment is maintained. Mild multilevel degenerative disc disease with loss of disc space height, facet arthropathy and disc osteophyte complexes. This is worst at L5/S1. Atherosclerotic calcifications of the abdominal aorta. XR/XR lumbar spine 2-3V IMPRESSION: Mild spondylosis of the lumbar spine, as above detailed. Electronically signed by: Samira Morris MD 09/27/2024 02:15 PM AARON
== END 2024-08-11 09:17 | disposition home or self-care (01) ==
LOC: HO.XRAY 09:16
PROVIDERS: PCP Internal Medicine; Visit Provider Physical Medicine & Rehabilitation
DX: M16.0 Bilateral primary osteoarthritis of hip (principal); M53.3 Sacrococcygeal disorders, not elsewhere classified; M54.9 Dorsalgia, unspecified; M51.36 Other intervertebral disc degeneration, lumbar region; M25.512 Pain in left shoulder; G89.29 Other chronic pain
CPT/HCPCS: 72100; 73030; 73522; 99212

== ENCOUNTER 2024-08-11 09:16 | Outpatient (AMB) | payer MEDICARE, SELFPAY ==
--- NOTE | 2024-08-11 09:18 | A.OFFVIS_ITS ---
Intake Visit Reasons: New prob- B/L hip pain Intake Note: Rabia is a 68 year old female who presents today for a new problem visit with complaints of bilateral hip pain. Pt states her left side is more painful. Pt states the pain started within the last year. Pt denies any injury to her hips. Pt states her pain does not radiate. She states the pain is worse when she is walking or climbing stairs. Allergies celecoxib [From CELEBREX] Allergy (Unknown, Verified 08/11/24 09:19) CP epinephrine [EPINEPHRINE] Allergy (Unknown, Verified 08/11/24 09:19) HYPOTENSION galantamine [GALANTAMINE] Allergy (Unknown, Verified 08/11/24 09:19) NUMBNESS naproxen [From ALEVE] Allergy (Unknown, Verified 08/11/24 09:19) CP/NUMBNESS phenobarbital [PHENOBARBITAL] Allergy (Unknown, Verified 08/11/24 09:19) CP/NUMBNESS/TACHYCARDIA meperidine [From Demerol] Adverse Reaction (Verified 08/11/24 09:19) Vomiting Medication List - Last Reconciled 08/11/24 by Marely Rojas MD albuterol sulfate 90 mcg/actuation 2 puffs inhalation PRN aspirin (Adult Aspirin Regimen) 81 mg PO DAILY cholecalciferol (vitamin D3) 50 mcg PO DAILY leflunomide 20 mg PO DAILY lisinopril mg PO triamcinolone acetonide 0.5% appl topical HPI Comments Details: Previously seen for RUE pain. EMG below. History of fibromyalgia and RA. Here for hip pain. Left is worse, points to left lateral hip that radiates to groin. Worse with walking and stairs. Does not radiate to foot. Right side is just on the pelvic bone, feels like the bone , less frequent but bothering her more nowadays.No new numbness on feet. She did have sciatica 2 years ago which has resolved over time but still feels gregoria numb . She says that the left hip pain is different from the sciatica. History of lumbar disc herniations, never had injections, treated with chiropractor at that time. She gets numbness on both hands and feet, which she attributes to Taxol 2007. Has tried PT in the past. Also mentions past left shoulder injury. [facility] Medical History (Updated 08/11/24 @ 09:44 by Marely Rojas MD) History of fibromyalgia History of rheumatoid arthritis Osteoporosis Osteopoikilosis Surgical History Hx of tubal ligation Hx of cholecystectomy Hx of partial mastectomy Hx of hernia repair Family History Father Diabetes Heart disease Mother Stroke Social History (Updated 06/23/24 @ 09:24 by Caridad Hardin [facility]) Alcohol intake: current Alcohol intake frequency: holidays/special occasions only Alcohol type: wine Patient Tobacco Use Status: Never used Tobacco Current occupational status: employed Current occupation: [employer] Physical Exam Constitutional: Patient appears to be in no acute distress, well nourished and well developed. Patient was appropriately conversant and oriented. Good historian. MSK: No specific abnormalities found on inspection of the spine and all extremities. No tenderness over lumbar spinous processes or paraspinals. Tender on bilateral SI joints. Tender bilateral GT. No tenderness over groin tendons. Lumbar ROM was full. Bilateral hip, knee and ankle ROM WNL. No ligamentous laxity or crepitance. No increased effusion. Straight-leg raising test negative. FABERE test positive hip and groin pain, bilateral. Strength is 5/5 in all muscle groups tested. No increased tone noted. Neurological: Neurologic examination of the upper and lower extremities was nonfocal with intact sensation, muscle stretch reflexes and without focal motor deficits . Hollins?s negative bilaterally. Babinski was down going bilaterally. Clonus was negative. Gait is non-antalgic without loss of balance. Results Reviewed Results Reviewed: EMG by hi 07/02/24: RUE IMPRESSION: 1. This is a normal an abnormal study. Ordering Physician: Yfn Palmer MD Date of Service: 06/28/22 Procedure(s): XR hip RT w PEL1V Accession Number(s): [id number] cc: Yfn Palmer MD~ EXAMINATION: XR HIP, RIGHT CLINICAL INFORMATION: Hip pain COMPARISON: CT abdomen and pelvis 02/02/2020. TECHNIQUE: AP view pelvis is performed along with AP and frog-lateral projections of the right hip. FINDINGS: No fracture or dislocation or destructive process. There are degenerative changes lower lumbar spine with disc narrowing and vertebral spurring L4-L5. The SI joints and pubis are unremarkable. Right hip shows no fracture or dislocation or destructive process. No focal disc narrowing or erosive change or chondrocalcinosis. Left hip unremarkable. XR/XR hip RT w [id number] IMPRESSION: -Normal right hip. -Degenerative disc changes lower lumbar spine. 2. There is electrodiagnostic evidence for borderline right median neuropathy at the wrist, still consistent with Carpal Tunnel Syndrome. 3. There is no electrodiagnostic evidence for ulnar neuropathy, brachial plexopathy, or cervical radiculopathy. Assessment & Plan Assessment & Plan (1) Degenerative joint disease of both hips: Code(s): M16.0 - Bilateral primary osteoarthritis of hip Category: Medical Qualifiers: Osteoarthritis type: primary Qualified Code(s): M16.0 - Bilateral primary osteoarthritis of hip (2) Sacroiliac joint dysfunction of both sides: Code(s): M53.3 - Sacrococcygeal disorders, not elsewhere classified Category: Medical (3) Lumbar degenerative disc disease: Code(s): M51.36 - Other intervertebral disc degeneration, lumbar region Category: Medical (4) Left shoulder pain: Code(s): M25.512 - Pain in left shoulder Category: Medical Qualifiers: Chronicity: chronic Qualified Code(s): M25.512 - Pain in left shoulder; G89.29 - Other chronic pain Plan Here today mainly for left hip pain which I suspect is from arthritis. She does have history of lumbar degenerative disc. She has tenderness in both SI joints. She mentions chronic left shoulder pain. We will get x-rays: Lumbar, hips, left shoulder. Discussed briefly possibly doing hip injections. She is not looking for any joint replacement or lumbar surgeries. Assessment and plan discussed with patient, and patient was agreeable. All questions were answered thoroughly. Next follow-up, might to hip injection. Marely Rojas MD, MATIAS Board Certified, [place] [employer] and Rehabilitation (ABPMR) Board Certified, [place] [employer] Electro[employer] (ABEM) Orders: Orders XR lumbar spine 2-3V Today M16.0 - Bilateral primary osteoarthritis of hip, M51.36 - Other intervertebral disc degeneration, lumbar region, M53.3 - Sac rococcygeal disorders, not elsewhere classified, M54.9 - Dorsalgia, unspecified XR shoulder LT min 2V Today M25.512 - Pain in left shoulder XR hips HONEY min 3V Today M16.0 - Bilateral primary osteoarthritis of hip, M25.559 - Pain in unspecified hip, M51.36 - Other intervertebral disc degeneration, lumbar region, M53.3 - Sacrococcygeal disorders, not elsewhere classified Coding Level of Care Code Est Pt Level 4 (94699) Diagnoses Primary osteoarthritis of both hips M16.0 Osteoarthritis type: primary Sacroiliac joint dysfunction of both sides M53.3 Lumbar degenerative disc disease M51.36 Chronic left shoulder pain M25.512; G89.29 Chronicity: chronic
== END 2024-08-11 09:46 | disposition home or self-care (01) ==
PROVIDERS: PCP Internal Medicine; Visit Provider Physical Medicine & Rehabilitation
DX: M16.0 Bilateral primary osteoarthritis of hip (principal); M53.3 Sacrococcygeal disorders, not elsewhere classified; M51.36 Other intervertebral disc degeneration, lumbar region; M25.512 Pain in left shoulder; G89.29 Other chronic pain
CPT/HCPCS: 99214

== ENCOUNTER 2024-09-23 10:59 | Outpatient (AMB) | payer MEDICARE, SELFPAY ==
--- NOTE | 2024-09-23 11:01 | A.OFFVIS_ITS ---
Vital Signs 09/23/24 11:04 Height 5 ft 2 in Weight 125 lb BMI 22.9 Intake Visit Reasons: OV- B/L hip pain, possible injection Intake Note: Rabia is a 68 year old female who presents today for a follow up visit of her bilateral hip OA. Patient reports interest in receiving injections today. She reports her hips have steadily been becoming more painful. She describes her pains as aching. Denies numbness and tingling. Allergies celecoxib [From CELEBREX] Allergy (Unknown, Verified 09/23/24 11:04) CP epinephrine [EPINEPHRINE] Allergy (Unknown, Verified 09/23/24 11:04) HYPOTENSION galantamine [GALANTAMINE] Allergy (Unknown, Verified 09/23/24 11:04) NUMBNESS naproxen [From ALEVE] Allergy (Unknown, Verified 09/23/24 11:04) CP/NUMBNESS phenobarbital [PHENOBARBITAL] Allergy (Unknown, Verified 09/23/24 11:04) CP/NUMBNESS/TACHYCARDIA meperidine [From Demerol] Adverse Reaction (Verified 09/23/24 11:04) Vomiting Medication List - Last Reconciled 09/23/24 by Marely Rojas MD albuterol sulfate 90 mcg/actuation 2 puffs inhalation PRN aspirin (Adult Aspirin Regimen) 81 mg PO DAILY cholecalciferol (vitamin D3) 50 mcg PO DAILY leflunomide 20 mg PO DAILY lisinopril mg PO triamcinolone acetonide 0.5% appl topical HPI Comments Details: Previously seen for RUE pain. EMG below. History of fibromyalgia and RA. Here for hip pain. Left is worse, points to left lateral hip that radiates to groin. Worse with walking and stairs. Does not radiate to foot. Right side is just on the pelvic bone, feels like the bone , less frequent but bothering her more nowadays.No new numbness on feet. She did have sciatica 2 years ago which has resolved over time but still feels gregoria numb . She says that the left hip pain is different from the sciatica. History of lumbar disc herniations, never had injections, treated with chiropractor at that time. She gets numbness on both hands and feet, which she attributes to Taxol 2008. Has tried PT in the past. Also mentions past left shoulder injury. Here today to look at x-ray results and possible injection. Her main issue today is left shoulder pain. Would like to have shoulder injection. She had shoulder injection 4 years ago that worked very well. She also complains of anterior hip pain going to the groin. Mildly on the lateral aspect/GT. Left worse than right. FOR[facility]LY [facility], [facility] Medical History History of fibromyalgia History of rheumatoid arthritis Osteoporosis Osteopoikilosis Surgical History Hx of tubal ligation Hx of cholecystectomy Hx of partial mastectomy Hx of hernia repair Family History Father Diabetes Heart disease Mother Stroke Social History Alcohol intake: current Alcohol intake frequency: holidays/special occasions only Alcohol type: wine Patient Tobacco Use Status: Never used Tobacco Current occupational status: employed Current occupation: [employer] Physical Exam Vital Signs: BMI result Body Mass Index 22.9 Constitutional: Patient appears to be in no acute distress, well nourished and well developed. MSK: Inspection reveals appropriate head and neck positioning. No pain with palpation over the neck musculature. Cervical ROM was full. Spurling's sign negative. Limited left shoulder abduction. Negative left empty can sign. Drop arm test is negative. Speed's test is negative. Neer's test is negative. Hawkin's test is mildly positive left. Strength is 5/5 in all muscle groups tested. No increased tone noted. Neurological: Neurologic examination of the upper and lower extremities was nonfocal with intact sensation, muscle stretch reflexes and without focal motor deficits . Hollins?s negative bilaterally. Babinski was down going bilaterally. Clonus was negative. Gait is non-antalgic without loss of balance. Office Procedures AMB Joint Injection/Aspiration Joint Injection/Aspiration Details: Consent was obtained. The distal, lateral, and posterior edges of the left acromion are palpated. Area is cleansed with betadine solution. A 27 gauge needle is inserted just inferior to the posterolateral edge of the acromion. The needle is directed toward the opposite chest. A solution containing 40 mg Kenalog and 3 ml of 2% Lidocaine is injected. Patient tolerated procedure well without complications. Post-injection instructions given. Primary Site: left shoulder Injected: 40 mg of, Kenalog and with 3 mL of (2% lidocaine) Coding - Large joint Procedure code (CPT) selection complete Results Reviewed Results Reviewed: Hip and shoulder x-rays have not been read yet by the radiology department. We have already called them. We looked at the images together. Shoulder x-ray showed decreased disc space GH and AC joints. Hip x-rays showed decreased joint space. Lumbar x-rays showed preserved disc spaces. Assessment & Plan Assessment & Plan (1) DJD of left shoulder: Code(s): M19.012 - Primary osteoarthritis, left shoulder Category: Medical Qualifiers: Osteoarthritis type: primary Qualified Code(s): M19.012 - Primary osteoarthritis, left shoulder (2) Degenerative joint disease of both hips: Code(s): M16.0 - Bilateral primary osteoarthritis of hip Category: Medical Qualifiers: Osteoarthritis type: primary Qualified Code(s): M16.0 - Bilateral primary osteoarthritis of hip (3) History of rheumatoid arthritis: Code(s): Z87.39 - Personal history of other diseases of the musculoskeletal system and connective tissue Category: Medical Plan She wanted to trial left shoulder injection today. Injection performed. Patient tolerated procedure well. On next visit, we might consider GT injection. Assessment and plan discussed with patient, and patient was agreeable. All questions were answered thoroughly. Follow up 6 weeks. Marely Rojas MD, MATIAS Board Certified, [place] [employer] and Rehabilitation (ABPMR) Board Certified, [place] [employer] Electrodiagnostic [employer] (ABEM) Orders: Orders AMB Joint Injection/Aspiration Today M19.012 - Primary osteoarthritis, left shoulder Coding Level of Care Code Est Pt Level 4 (73857) Diagnoses Primary osteoarthritis of left shoulder M19.012 Osteoarthritis type: primary Primary osteoarthritis of both hips M16.0 Osteoarthritis type: primary History of rheumatoid arthritis Z87.39 CPT Codes Coding - Large joint: 54264 - Large joint ([id number])
[2024-09-23 11:04] VITALS: BMI 22.9
== END 2024-09-23 11:31 | disposition home or self-care (01) ==
LOC: HO.HOS 10:59
PROVIDERS: PCP Internal Medicine; Visit Provider Physical Medicine & Rehabilitation
DX: M19.012 Primary osteoarthritis, left shoulder (principal); M16.0 Bilateral primary osteoarthritis of hip; Z87.39 Personal history of other diseases of the musculoskeletal system and connective tissue
CPT/HCPCS: 20610; 99214

== ENCOUNTER → 2024-09-23 10:59 | Outpatient (BNVA) | payer MEDICARE, SELFPAY | PROVIDERS: PCP Internal Medicine; Visit Provider Physical Medicine & Rehabilitation | DX: M19.012 Primary osteoarthritis, left shoulder (principal); M16.0 Bilateral primary osteoarthritis of hip; M79.7 Fibromyalgia; Z87.39 Personal history of other diseases of the musculoskeletal system and connective tissue | CPT/HCPCS: 20610; 99212; J2003; J3301 ==

== ENCOUNTER 2024-10-18 13:33 | Outpatient (REF) | payer MEDICARE, SELFPAY ==
[2024-10-18 13:53] LABS: MANUAL DIFF FLAG NO
[2024-10-18 14:41] LABS: Basophils Absolute Auto 0.1 X10*3/uL (0.0-0.2); Basophils Percent Auto 1.5 % (0-2); Eosinophils Absolute Auto 0.2 X10*3/uL (0.0-0.4); Eosinophils Percent Auto 5.2 % (0-4); Hematocrit 35.3 % (37.0-47.0); Hemoglobin 11.8 g/dl (12.0-16.0); Lymphocytes Percent Auto 49.6 % (20-40); Mean Corpuscular HGB Conc 33.4 g/dl (31.0-35.0); Mean Corpuscular Hemoglobin 33.1 pg (27.0-33.0); Mean Corpuscular Volume 98.9 fL (80.0-98.0); Mean Platelet Volume 11.8 fL (9.4-12.3); Monocytes Absolute Auto 0.5 X10*3/uL (0.1-1.2); Monocytes Percent Auto 11.1 % (2-11); Neutrophils Absolute Auto 1.3 x10*3/uL (2.0-8.3); Neutrophils Percent Auto 32.6 % (45-73); Platelet Count 212 X10*3/uL (160-400); Red Blood Count 3.57 X10*6/uL (4.20-5.50); White Blood Count 4.1 X10*3/uL (4.8-10.8)
== END 2024-10-18 13:34 | disposition home or self-care (01) ==
LOC: HO.LAB 13:33
PROVIDERS: PCP Internal Medicine; Visit Provider Internal Medicine
DX: R91.8 Other nonspecific abnormal finding of lung field (principal)
CPT/HCPCS: 36415; 85025

== ENCOUNTER 2024-11-04 10:57 | Outpatient (AMB) | payer MEDICARE, SELFPAY ==
--- OUTSIDE RECORDS SUMMARY | 2024-11-04 11:00 | XMS_ITS | Patient Health Record ---
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 Role Phone Yfn Palmer Primary Care Provider ALLERGIES Allergen (clinical drug ingredient) Drug/Non Drug Allergy documented on EMR Reaction Allergy Type Onset Date Status phenobarbital Phenobarbital palpitations Drug Allergy Active atorvastatin Lipitor rhabdomyalissi Drug Allergy Active acetaminophen / hydrocodone Hydrocodone-Acetami nophen itch vomiting Drug Allergy Active galantamine Galantamine Hydrobromide numbness Drug Allergy Active EPINEPHrine low BP Drug Allergy Activ e celecoxib Celebrex chest pain Drug Allergy Active naproxen Aleve chest pain Drug Allergy Active RESULTS Component Value Reference Range Notes UA ClnCatch+Micro w/rflx Cul t Reviewed date:04/22/2024 07:17:12 PM Interpretation: Performing Lab:[facility], [address] [place] [phone] Notes/Report: Urine, Clean Catch Color Urine Yellow Appearance Urine Clear PH 7.0 5.0-9.0 Glucose Urine UA Negative Negative mg/dL Urine Blood Negative Negative Specific [place] - Urine 1.010 1.005-1.025 Urine Protein Negative Neg-Trace mg/dL Urine Ketones Negative Negative mg/dL Nitrite Urine Negative Negative Leukocyte Esterase Urine Moderate (2+) Negative RBC Urine 0-2 0-2 /HPF WBC Urine 0-5 0-5 /HPF Squamous Epithelial Cell Urine 3-5 0-2 /HPF Bacteria Urine None Seen None Seen Hyaline Casts Urine 0-2 0-2 /LPF Complete Blood Count Auto Di ff Reviewed date:05/06/2024 12:06:28 PM Interpretation:ALESSANDRACK CBC 05/06 Performing Lab:[facility], [address] [place] [phone] Notes/Report: White Blood Count 3.4 4.8-10.8 X10*3/uL Red Blood Count 3.81 4.20-5.50 X10*6/uL Hemoglobin 12.4 12.0-16.0 g/dl Hematocrit 37.4 37.0-47.0 % Mean Corpuscular Volume 98.2 80.0-98.0 fL Mean Corpuscular Hemoglobin 32.5 27.0-33.0 pg Mean Corpuscular HGB Conc 33.2 31.0-35.0 g/dl Red Cell Distribution Width 11.6 11.0-16.0 % Platelet Count 219 160-400 X10*3/uL Mean Platelet Volume 12.0 9.4-12.3 fL Neutrophils Percent Auto 45.5 45-73 % Imm Gran Pct Auto 0.3 0.0-0.4 % Lymphocytes Percent Auto 36.3 20-40 % Monocytes Percent Auto 12.3 2-11 % Eosinophils Percent Auto 4.4 0-4 % Basophils Percent Auto 1.2 0-2 % NRBC Pct Auto 0.0 0.0-0.2 /100WBC Neutrophils Absolute Auto 1.6 2.0-8.3 x10*3/u L Imm Gran Abs Auto 0.01 0.00-0.03 X10*3/uL Lymphocytes Absolute Auto 1.2 1.2-4.9 X10*3/u L Monocytes Absolute Auto 0.4 0.1-1.2 X10*3/uL Eosinophils Absolute Auto 0.2 0.0-0.4 X10*3/u L Basophils Absolute Auto 0.0 0.0-0.2 X10*3/uL NRBC Abs Auto 0.000 0.0-0.012 X10*3/uL Comprehensive Willis. Panel Fa st Reviewed date:04/29/2024 04:21:21 PM Interpretation: Performing Lab:[facility], [address] [place] [phone] Notes/Report: Sodium 143 135-145 mmol/L Potassium 3.8 3.3-5.1 mmol/L Chloride 106 96-108 mmol/L Carbon Dioxide 27 22-29 mmol/L Anion Gap 14 12-20 Blood Urea Nitrogen 8 9-16 mg/dL Creatinine 0.76 0.5-1.4 mg/dL Estimated Glomerular Filt Rate > 60 NOTE: For -[place] individuals, multiply the result by 1.210. Chronic Kidney Disease: Estimated GFR < 60 mL/min/1.73m2 Severe Kidney Disease: Estimated GFR < 15 mL/min/1.73m2 Glucose Fasting 72 60-99 mg/dL Calcium 9.2 8.4-10.2 mg/dL Bilirubin Total 0.4 0.0-1.0 mg/dL Aspartate Amino Transferase 23 5-31 U/L Alanine Aminotransferase 20 0-31 U/L Total Protein 6.5 6.5-8.0 g/dL Albumin Level 3.7 3.5-5.0 g/dL Alkaline Phosphatase 73 39-117 U/L Lipid Panel Reviewed date:04/29/2024 12:41:58 PM Interpretation: Performing Lab:[address] [phone] Notes/Report: Triglycerides 92 <150 mg/dL Desirable Triglyceride: less than 150 mg/dL Borderline High Triglyceride 150-199 mg/dL High Triglyceride: 200-499 mg/dL Very High Triglyceride: greater than or equal to 5OO mg/dL Cholesterol 215 <200 mg/dL Desirable Cholesterol: less than 200 mg/dL Borderline High Cholesterol: 200-239 mg/dL High Cholesterol: greater than 239 mg/dL LDL Cholesterol Calculated 142 <100 mg/dL Desirable LDL: less than 100 mg/dL Near Optimal/Above Optimal LDL: 110-129 mg/dL Borderline High LDL: 130-159 mg/dL High LDL: 160-189 mg/dL Very High LDL: greater than or equal to 190 mg/dL HDL Cholesterol 55 >40 mg/dL Desirable HDL: greater than 40 mg/dL Note: This HDL assay may give artificially low results in patients with liver disease. UA ClnCatch+Micro w/rflx Cul t Reviewed date:04/29/2024 12:51:58 PM Interpretation: Performing Lab:[address] [phone] Notes/Report: Urine, Clean Catch Color Urine Yellow Appearance Urine Clear PH 5.5 5.0-9.0 Glucose Urine UA Negative Negative mg/dL Urine Blood Negative Negative Specific [place] - Urine 1.015 1.005-1.025 Urine Protein Negative Neg-Trace mg/dL Urine Ketones Negative Negative mg/dL Nitrite Urine Negative Negative Leukocyte Esterase Urine Negative Negative RBC Urine 0-2 0-2 /HPF WBC Urine 0-5 0-5 /HPF Squamous Epithelial Cell Urine 6-10 0-2 /HPF Bacteria Urine Trace None Seen Hyaline Casts Urine 0-2 0-2 /LPF Complete Blood Count Auto Di ff Reviewed date:05/20/2024 12:48:09 PM Interpretation: Performing Lab:[facility], [address] [place] [phone] Notes/Report: White Blood Count 4.6 4.8-10.8 X10*3/uL Red Blood Count 3.64 4.20-5.50 X10*6/uL Hemoglobin 11.7 12.0-16.0 g/dl Hematocrit 36.0 37.0-47.0 % Mean Corpuscular Volume 98.9 80.0-98.0 fL Mean Corpuscular Hemoglobin 32.1 27.0-33.0 pg Mean Corpuscular HGB Conc 32.5 31.0-35.0 g/dl Red Cell Distribution Width 11.9 11.0-16.0 % Platelet Count 221 160-400 X10*3/uL Mean Platelet Volume 12.4 9.4-12.3 fL Neutrophils Percent Auto 31.0 45-73 % Imm Gran Pct Auto 0.2 0.0-0.4 % Lymphocytes Percent Auto 47.0 20-40 % Monocytes Percent Auto 13.3 2-11 % Eosinophils Percent Auto 7.2 0-4 % Basophils Percent Auto 1.3 0-2 % NRBC Pct Auto 0.0 0.0-0.2 /100WBC Neutrophils Absolute Auto 1.4 2.0-8.3 x10*3/u L Imm Gran Abs Auto 0.01 0.00-0.03 X10*3/uL Lymphocytes Absolute Auto 2.2 1.2-4.9 X10*3/u L Monocytes Absolute Auto 0.6 0.1-1.2 X10*3/uL Eosinophils Absolute Auto 0.3 0.0-0.4 X10*3/u L Basophils Absolute Auto 0.1 0.0-0.2 X10*3/uL NRBC Abs Auto 0.000 0.0-0.012 X10*3/uL MM tomosynthesis screening B I Reviewed date:06/23/2024 03:56:01 PM Interpretation: Performing Lab: Notes/Report: [facility] [place] [address] Mammography Report Signed Patient: Rabia Wagner MR#: [id number] : 1955 Acct:[id number] Age/Sex: 68 / F ADM Date: 05/24/24 Loc: HO.MAMMO Attending Dr: Yfn Palmer MD Ordering Physician: Yfn Palmer MD Results: 2Be nign Findings Date of Service: 05/24/24 Follow Up: 1 Year From Orig inal Mammogram Procedure(s): MM tomosynthesis screening BI Accession Number(s): [id number] cc: Yfn Palmer MD EXAMINATION: MM SCREENING DIGITAL BREAST TOMOSYNTHESIS, BILATERAL CLINICAL INFORMATION: Screening. Asymptomatic. There is a history of treated left breast cancer. COMPARISON: Mammography: This study is compared with prior exams dating back to TECHNIQUE: Digital breast tomosynthesis is performed in both the craniocaudal and mediolateral oblique views along with computer-aided detection (CAD). Synthesized 2D images are generated from the tomosynthesis. FINDINGS: There are scattered areas of fibroglandular density (ACR BI-RADS breast composition Category b). There are no significant masses, abnormal calcifications, or other abnormalities. Posttreatment changes are present in the left axilla and medial aspect of the left breast. There is benign, coarse dystrophic calcification in the retroareolar region of the left breast. MM/MM tomosynthesis screening BI IMPRESSION: No mammographic evidence of malignancy. ASSESSMENT: BI-RADS BI-RADS 2 - Benign Findings RECOMMENDATION: Routine annual mammography screening. 1 year F/U This examination should not preclude the clinical evaluation of a suspicious palpable abnormality. This patient's information was entered into a reminder system with a target due date for their next mammogram. Dictated By: Carissa Watson MD Signed By: <Electronically signed by Carissa Watson MD in OV> 06/23/24 0633 DD/ 1210 TD/TT: Security Administrator: FL barium swallow modified Reviewed date:06/14/2024 05:34:33 PM Interpretation: Performing Lab: Notes/Report: [address] [address] Fluoroscopy Report Signed Patient: Rabia Wagner MR#: [id number] : 1955 Acct:[id number] Age/Sex: 68 / F ADM Date: 06/14/24 Loc: E[facility] Attending Dr: Yfn Palmer MD Ordering Physician: Yfn Palmer MD Date of Service: 06/14/24 Procedure(s): FL barium swallow modified Accession Number(s): [id number] cc: Yfn Palmer MD EXAMINATION: Modified Barium Swallow CLINICAL INFORMATION: Dysphagia COMPARISON: None TECHNIQUE: Modified barium swallow was performed under lateral fluoroscopy with patient in standing position. Barium mixed with solids and liquids of different consistencies was administered by the speech pathologist. Examination was recorded in the fluoroscopy suite. FINDINGS: Trace laryngeal penetration is seen with thin consistency barium. No subglottic aspiration was observed during this examination. FLUOROSCOPY TIME: 1 minute 49 seconds Number of Spot Images: DOSE AREA PRODUCT: 408.8 uGy-m2 (microgray-meter squared) FL/FL barium swallow modified IMPRESSION: Trace laryngeal penetration is seen with thin consistency barium. No subglottic aspiration was observed during this examination. Refer to the full speech therapy report for further clarification This procedure was performed by Carmine Solorzano PA-C, and supervised by Dr. Lee Dictated By: Carmine Solorzano Signed By: <Electronically signed by Carmine Solorzano in OV> 06/14/24 1605 <Electronically signed by Elias Lee MD in OV> 06/14/24 1609 DD/ 1445 TD/TT: Security Administrator: ANAHI epstein RT min 3V Reviewed date:07/13/2024 12:06:19 PM Interpretation: Performing Lab: Notes/Report: [facility] [address] [place] [address] Drive [address] [place] [address] XRay Report Signed Patient: Rabia Wagner MR#: [id number] : 1955 Acct:[id number] Age/Sex: 68 / F ADM Date: 06/23/24 Loc: HO.HOSX Attending Dr: Randy Rojas MD Ordering Physician: Randy Rivera Date of Service: 06/23/24 Procedure(s): XR elbow RT min 3V Accession Number(s): [id number] cc: Yfn Palmer MD; Randy Rivera EXAMINATION: XR ELBOW, RIGHT CLINICAL INFORMATION: Carpal tunnel syndrome COMPARISON: None available. TECHNIQUE: AP, lateral, and oblique views of the right elbow. FINDINGS: No fracture or joint effusion. Alignment is anatomic. Joint spaces are maintained. XR/XR elbow RT min 3V IMPRESSION: No acute findings. Study is assigned for dictation on July 12, 2024 Dictated By: Guillermo Hernandez MD Signed By: <Electronically signed by Guillermo Hernandez MD in OV> 07/12/24 1636 DD/ 0951 TD/TT: Security Administrator: HB Complete Blood Count Auto Di ff Reviewed date:07/01/2024 12:03:02 PM Interpretation: Performing Lab:[facility], [address] [place] [phone] Notes/Report: White Blood Count 3.7 4.8-10.8 X10*3/uL Red Blood Count 3.81 4.20-5.50 X10*6/uL Hemoglobin 12.1 12.0-16.0 g/dl Hematocrit 37.8 37.0-47.0 % Mean Corpuscular Volume 99.2 80.0-98.0 fL Mean Corpuscular Hemoglobin 31.8 27.0-33.0 pg Mean Corpuscular HGB Conc 32.0 31.0-35.0 g/dl Red Cell Distribution Width 11.9 11.0-16.0 % Platelet Count 202 160-400 X10*3/uL Mean Platelet Volume 12.3 9.4-12.3 fL Neutrophils Percent Auto 32.4 45-73 % Imm Gran Pct Auto 0.0 0.0-0.4 % Lymphocytes Percent Auto 45.2 20-40 % Monocytes Percent Auto 11.2 2-11 % Eosinophils Percent Auto 9.1 0-4 % Basophils Percent Auto 2.1 0-2 % NRBC Pct Auto 0.0 0.0-0.2 /100WBC Neutrophils Absolute Auto 1.2 2.0-8.3 x10*3/u L Imm Gran Abs Auto 0.00 0.00-0.03 X10*3/uL Lymphocytes Absolute Auto 1.7 1.2-4.9 X10*3/u L Monocytes Absolute Auto 0.4 0.1-1.2 X10*3/uL Eosinophils Absolute Auto 0.3 0.0-0.4 X10*3/u L Basophils Absolute Auto 0.1 0.0-0.2 X10*3/uL NRBC Abs Auto 0.000 0.0-0.012 X10*3/uL XR hips HONEY min 3V Reviewed date:09/27/2024 05:52:43 PM Interpretation: Performing Lab: Notes/Report: [place] [address] XRay Report Signed Patient: Rabia Wagner MR#: [id number] : 1955 Acct:[id number] Age/Sex: 68 / F ADM Date: 08/11/24 Loc: HO.XRAY Attending Dr: Randy Rojas MD Ordering Physician: Randy Rivera Date of Service: 08/11/24 Procedure(s): XR hips HONEY min 3V Accession Number(s): [id number] cc: Yfn Palmer MD; Randy Rivera EXAMINATION: XR BILATERAL HIPS WITH AP PELVIS CLINICAL INFORMATION: Pain COMPARISON: 06/28/2022 TECHNIQUE: AP view of the pelvis and single views of each hip were obtained. FINDINGS: No fracture. Hip joint spaces are maintained. Alignment is anatomic. Sacroiliac joints and pubic symphysis are normal. No abnormal soft tissue calcifications. XR/XR hips HONEY min 3V IMPRESSION: Normal pelvis and hips. Electronically signed by: Samira Morris MD 09/27/2024 02:08 PM [facility] Dictated By: Samira Morris MD Signed By: <Electronically signed by Samira Morris MD in OV> 09/27/24 1408 DD/ 0954 TD/TT: 08/11/24 1025 Security Administrator: XR lumbar spine 2-3V Reviewed date:09/27/2024 05:53:17 PM Interpretation: Performing Lab: Notes/Report: [address] [address] XRay Report Signed Patient: Rabia Wagner MR#: [id number] : 1955 Acct:[id number] Age/Sex: 68 / F ADM Date: 08/11/24 Loc: EMILE[facility] Attending Dr: Randy Rojas MD Ordering Physician: Randy Rivera Date of Service: 08/11/24 Procedure(s): XR lumbar spine 2-3V Accession Number(s): [id number] cc: Yfn Palmer MD; Randy Rivera EXAMINATION: XR lumbar spine 2-3V CLINICAL INFORMATION: M54.9 - Dorsalgia, unspecified COMPARISON: None TECHNIQUE: 3 views of the lumbar spine FINDINGS: 5 nonrib-bearing lumbar-type vertebral bodies. Vertebral body heights are maintained. Alignment is maintained. Mild multilevel degenerative disc disease with loss of disc space height, facet arthropathy and disc osteophyte complexes. This is worst at L5/S1. Atherosclerotic calcifications of the abdominal aorta. XR/XR lumbar spine 2-3V IMPRESSION: Mild spondylosis of the lumbar spine, as above detailed. Electronically signed by: Samira Morris MD 09/27/2024 02:15 PM EST Dictated By: Samira Morris MD Signed By: <Electronically signed by Samira Morris MD in OV> 09/27/24 1415 DD/ 0954 TD/TT: 08/11/24 1025 Security Administrator: XR shoulder LT min 2V Reviewed date:09/27/2024 05:52:13 PM Interpretation: Performing Lab: Notes/Report: [facility] [address] [place] [address] XRay Report Signed Patient: Rabia Wagner MR#: [id number] : 1955 Acct:[id number] Age/Sex: 68 / F ADM Date: 08/11/24 Loc: E[facility] Attending Dr: Randy Rojas MD Ordering Physician: Randy Rivera Date of Service: 08/11/24 Procedure(s): XR shoulder LT min 2V Accession Number(s): [id number] cc: Yfn Palmer MD; Randy Rivera EXAMINATION: XR SHOULDER, LEFT CLINICAL INFORMATION: Left shoulder pain COMPARISON: None available. TECHNIQUE: AP external rotation, Grashey, scapular Y, and axillary views of the left shoulder. FINDINGS: Severe degenerative changes with joint space narrowing and tiny osteophytes. XR/XR shoulder LT min 2V IMPRESSION: Severe degenerative changes of the left shoulder joint. Electronically signed by: Samira Morris MD 09/27/2024 02:21 PM [facility] Dictated By: Samira Morris MD Signed By: <Electronically signed by Samira Morris MD in OV> 09/27/24 1421 DD/ 0954 TD/TT: 08/11/24 1025 Security Administrator: Complete Blood Count Auto Di ff Reviewed date:10/18/2024 05:30:42 PM Interpretation: Performing Lab:[facility], [address] [place] [phone] Notes/Report: White Blood Count 4.1 4.8-10.8 X10*3/uL [...] Abs Auto 0.000 0.0-0.012 X10*3/uL REASON FOR REFERRAL Reason neuropathic pain Diagnosis 1 Neuropathic pain (M7 9.2) Referral Organization Yfn Palmer MD Referring Provider First Name Yfn Referring Provider Last Name Estela Referring Provider Speciality Internal M edicine Referred Provider RANDY RIVERA Referred Provider Specialty Physiotherap y General Notes Cait Galan 01:17:32 PM EDT > info faxed, Cait Galan 06/03/2024 02:45:03 PM EDT > info mailed to patient and called Referral Priority Routine Referral Appointment Date 06/23/2024 MEDICATIONS Medication SIG (Take, Route, Frequency, Duration) Notes Start Date End Date Status Hyoscyamine Sulfate SL 0.125 MG 1 tablet under the tongue and allow to dissolve as needed Sublingual Three times a day for 10 days 04/24/2023 Not-Taking Leflunomide 20 MG 1 tablet Orally Once a day for 30 day(s) Active Triamcinolone Acetonide 0.5 % 1 application Externally Two times a Week for 30 days 06/21/2022 Not-Taking Aspir-Low 81 MG 1 tablet Orally Once a day for 30 day(s) Active Lisinopril 5 MG 1 tablet Orally Once a day Active Lidocaine Plus 4 % 1 application Externally as needed Not-Taking Ventolin HFA 108 (90 Base) MCG/ACT 1 puff as needed Inhalation every 4 hrs Not-Takin g Carol Allergy 180 MG 1 tablet Orally O nce a day for 30 day(s) Not-Taking IMMUNIZATIONS Vaccine Route Administration Date Status Comme nts Fluarix Quadrivalent Unknown 05/24/2019 Refused PPSV23 (Pnemovax) Unknown 05/24/2019 Refused TDaP Unknown 05/24/2019 Refused Fluarix Quadrivalent Unknown 09/21/2019 Refused Fluarix Quadrivalent Unknown 06/27/2020 Refused Covid Vaccine Unknown 02/04/2022 Refused Fluarix Quadrivalent Unknown 02/04/2022 Refused Fluarix Quadrivalent Unknown 08/20/2022 Refused Influenza High Dose Unknown 08/16/2024 Refused SOCIAL HISTORY Tobacco Use: Social History Observation Description Date Details (start date - stop date) Never Smoker NA - NA Sex Assigned At : Social History Observation Description Sex Assigned At Unknown Tobacco Use/Smoking Question Answer Notes Patient is a nonsmoker Additional Findings: Tobacco Non-User Cu rrent non-smoker, currently using no form of tobacco Alcohol Screen Question Answer Notes Did you have a drink contain ing alcohol in the past year? Yes How often did you have a dri nk containing alcohol in the past year? Monthly or less (1 point) How many drinks did you have on a typical day when you were drinking in the past year? 1 or 2 drinks (0 point) How often did you have 6 or more drinks on one occasion in the past year? 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) Active confirmed Primary osteoarthritis (731651141) Problem History of Mari fundoplication (Z98.890) Active confirmed 718033627 Problem History of invasive ductal carcinoma of breast (Z85.3) Active confirmed 43793382937683 Problem Intestinal malabsorption, 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) Active confirmed 95852830 Problem Diverticulitis (K57.92) Active confirmed 259870984 Problem Lung nodule < 6cm on CT (R91.1) Active confirmed 563786933 Problem Takotsubo cardiomyopathy (I51.81) Active confirmed Takotsubo cardiomyopathy (426085443) Problem CAD (coronary artery disease) (I25.10) Active confirmed Coronary a rtery disease (31570667) Problem Osteoporosis (M81.0) Active confirmed O steoporosis (87263973) Problem Hypercholesterolemia (E78.00) Active confirmed 18959346 Problem Asthmatic bronchitis (J45.909) Active confirmed Asthmatic bronchitis (439722550) Problem Lung nodule (R91.1) Active confirmed So litary nodule of lung (534601789) Problem Neutropenia, unspecified type (D70.9) Active confirmed 384143025 Problem Tinnitus, bilateral (H93.13) Active confirmed 7774364677226 Problem Lymphocytosis (D72.820) Active confirmed Lymphocytosis (77523952) Problem Swallowing disorder (R13.10) Active confirmed 74396225 VITAL SIGNS Blood pressure diastolic 64 mm Hg 08/16/2024 Height 62.5 in 08/16/2024 Blood pressure systolic 136 mm Hg 08/16/2024 Weight 132 lbs 08/16/2024 BMI 23.76 kg/m2 08/16/2024 Encounters Encounter Location Date Provider Diagnosis Yfn Palmer MD [address] [place] [address] Drive [address] [place] [id number] 05/06/2024 Yfn Palmer Neuropathic pain M79 .2 ; Annual physical exam Z00.00 ; Food in respiratory tract, part unspecified causing other injury, initial encounter T17.928A ; Food entering into or through a natural orifice, initial encounter W44.F3XA ; Neutropenia, unspecified type D70.9 ; History of breast cancer Z85.3 ; Tinnitus, bilateral H93.13 ; Hypercholesterolemia E78.00 and Depression screening Z13.31 Yfn Palmer MD [address] [place] [id number] 02/06/2024 Yfn Palmer Generalized abdomina l pain R10.84 Yfn Palmer MD [address] [place] [address] Drive [address] [place] [id number] 04/29/2024 Yfn Palmer Blood tests for rout ine general physical examination Z00.00 and Hypercholesterolemia E78.00 Yfn Palmer MD [address] [place] [id number] 01/27/2024 Yfn Palmer Encounter for preprocedural laboratory examination Z01.812 Yfn Palmer MD [address] [place] [id number] 04/22/2024 Yfn Palmer UTI (urinary tract infection) N39.0 Yfn Palmer MD [address] [place] [id number] 05/20/2024 Yfn Palmer Neutropenia, unspeci fied type D70.9 Yfn Palmer MD [address] [place] [id number] 07/01/2024 Yfn Palmer Lymphocytosis D72.82 0 Yfn Palmer MD [address] [place] [id number] 10/18/2024 Yfn Palmer Lung nodules R91.8 Yfn Palmer MD [address] [place] [id number] 01/16/2024 Yfn Palmer Generalized abdomina l pain R10.84 Yfn Palmer MD [address] [place] [id number] 06/15/2024 Yfn Palmer Swallowing disorder R13.10 ; Generalized abdominal pain R10.84 and Malaise R53.81 Yfn Palmer MD [address] [place] [id number] 08/16/2024 Yfn Palmer Lung nodules R91.8 a nd Neutropenia, unspecified type D70.9 Yfn Palmer MD [address] [place] [id number] 01/20/2024 Yfn Palmer Generalized abdomina l pain R10.84 Yfn Palmer MD [address] [place] [address] [id number] 06/10/2024 Yfn Palmer MD [address] [place] [id number] 06/11/2024 Yfn Palmer MD [address] [place] [id number] 08/13/2024 Yfn Palmer MD [address] [place] [id number] 08/13/2024 Yfn Palmer Lung nodule < 6cm on CT R91.1 ASSESSMENTS Encounter Date Diagnosis Assessment Notes Treatment Notes Treatment Clinical Notes 05/06/2024 Annual physical exam (ICD-10 - Z00.00) labs reviewed and discussed with patient 05/06/2024 Neuropathic pain (IC D-10 - M79.2) send to wild life manager in ortho. 02/06/2024 Generalized abdomina l pain (ICD-10 - R10.84) will wait until she returnd from taking care of her daughter. will wait until she gets back and she will call 04/29/2024 Hypercholesterolemia (ICD-10 - E78.00) 04/29/[address] ine general physical examination (ICD-10 - Z00.00) 05/20/2024 Neutropenia, unspeci fied type (ICD-10 - D70.9) 07/01/2024 Lymphocytosis (ICD-1 0 - D72.820) 10/18/2024 Lung nodules (ICD-10 - R91.8) 01/16/2024 Generalized abdomina l pain (ICD-10 - R10.84) does not seem to be related to bowels or eating, advised to use caution with restrictive clothing as that seems to exacerbate the sx's, pending diagnostic testing, ordered printed -PA needed 06/15/2024 Generalized abdomina l pain (ICD-10 - R10.84) order faxed to [facility], pending diagnostic study 06/15/2024 Swallowing disorder (ICD-10 - R13.10) just had the swallowing evaluation today, pending result 08/16/2024 Lung nodules (ICD-10 - R91.8) reviewed cat scan and discussed findings with patient and no change. repeat in one year/ order put in future folder 08/16/2024 Neutropenia, unspeci fied type (ICD-10 - D70.9) will contnue to monitor , lab ordered, pending 08/13/2024 Lung nodule < 6cm on CT (ICD-10 - R91.1) Order made and put into the future order folder for 05/06/2024 Food in respiratory tract, part unspecified causing other injury, initial encounter (ICD-10 - T17.928A) pending diagnostic testing 01/27/2024 Encounter for preprocedural laboratory examination (ICD-10 - Z01.812) 04/22/2024 UTI (urinary tract infection) (ICD-10 - N39.0) 06/15/2024 Malaise (ICD-10 - R53.81) wi ll continue to monitor 01/20/2024 Generalized abdomina l pain (ICD-10 - R10.84) 05/06/2024 Food entering into o r through a natural orifice, initial encounter (ICD-10 - W44.F3XA) 05/06/2024 Neutropenia, unspeci fied type (ICD-10 - D70.9) stable, pending addtional labs 05/06/2024 History of breast ca ncer (ICD-10 - Z85.3) order faxed to [facility] dept, pending diagnostic testing 05/06/2024 Tinnitus, bilateral (ICD-10 - H93.13) will monitor, nothing to do 05/06/2024 Hypercholesterolemia (ICD-10 - E78.00) stable, will continue to monitor 05/06/2024 Depression screening (ICD-10 - Z13.31) negative screen PLAN OF TREATMENT Pending Test Test Name Order Date CT ABD W&WO CONTRAST 01/16/2024 CT ABD & PELVIS WITH CONTRAST 01/20/2024 CT ABD & PELVIS WITH CONTRAST 06/15/2024 CT CHEST NO CONTRAST 02/07/2020 XR BARIUM SWALLOW, MODIFIED VIDEO 2019 BONE DENSITY DEXA 10/17/2020 MAMMOGRAM DIGITAL BILATERAL DIAGNO 09/28 MAMMOGRAM DIGITAL BILATERAL SCREEN 10/17 MAMMOGRAM DIGITAL BILATERAL SCREEN 05/06 CT chest wo con 02/04/2022 CT chest wo con 07/17/2023 CT chest wo con 02/07/2022 CT chest wo con 08/13/2024 FL barium swallow modified 05/06/2024 MM screening mammo BI 03/01/2022 XR DEXA axial skeleton 03/01/2022 XR hip RT min 2V 06/28/2022 Future Test Test Name Order Date CT CHEST NO CONTRAST 06/16/2020 CT CHEST WITH CONTRAST 12/28/2020 CT chest wo con 07/11/2023 CT chest w con 08/16/2025 Next Appt Details Provider Name:Yfn Jordan ier, 05/09/2025 07:00:00 AM, [address], [address], [place], [place], [phone], Provider Name:Yfn Jordan ier, 05/16/2025 10:30:00 AM, [address], [address], [place], [place], [phone], Insurance Providers Payer Name Payer Address Payer Phone Subscriber Number Group Number Insured Name Patient Relationship to Insured Coverage Start Date Coverage End Date [facility] are [employer] 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
--- OUTSIDE RECORDS SUMMARY | 2024-11-04 11:00 | XMS_ITS ---
Author Organization Yfn Palmer MD Address [address] [place], [place] [id number] Care Team Providers Care Packerhead Machine Operator Name Role Phone Yfn Palmer Primary Care Provider [phone] ALLERGIES Allergen (clinical drug ingredient) Drug/Non Drug [...] naproxen Aleve chest pain Drug Allergy Active REASON FOR VISIT 2 month MEDICATIONS Medication SIG (Take, Route, Frequency, Duration) [...] Once a day for 30 day(s) Active IMMUNIZATIONS Vaccine Route Administration Date Status Comme nts Influenza High Dose Unknown 08/16/2024 Refused VITAL SIGNS BMI 23.76 kg/m2 08/16/2024 Blood pressure systolic 136 mm Hg 08/16/20 24 Blood pressure diastolic 64 mm Hg 024 Height 62.5 in 08/16/2024 Weight 132 lbs 08/16/2024 Encounters Encounter Location Date Provider Diagnosis Yfn Palmer MD [address] [place] [address] [place] [phone] 08/16/2024 Yfn Palmer Lung nodules R91.8 and Neutropenia, unspecified type D70.9 ASSESSMENTS Encounter Date Diagnosis Assessment Notes Treatment Notes Treatment Clinical Notes 08/16/2024 Lung nodules (ICD-10 - R91.8) reviewed cat scan and discussed findings with patient and no change. repeat in one year/ order put in future folder 08/16/2024 Neutropenia, unspecified type (ICD-10 - D70.9) will contnue to monitor , lab ordered, pending PLAN OF TREATMENT Treatment Notes Assessment Notes Lung nodules reviewed cat scan an d discussed findings with patient and no change. repeat in one year/ order put in future folder Neutropenia, unspecified type will contn ue to monitor , lab ordered, pending Future Test Test Name Order Date CT chest w con 08/16/2025 Next Appt Details Provider Name:Yfn taylor, 05/09/2025 07:00:00 AM, [address] [place] [address], [address] [place] [address], [phone], Provider Name:Yfn taylor, 05/16/2025 10:30:00 AM, [address] [place] [address], [address] [place] [address], [phone], Progress Notes * Examination Category Sub-Category Detail Notes General Examination GENERAL APPEARANCE: alert, w ell hydrated, in no distress HEAD: normocephalic HEART: regular rate and rhy thm, no murmurs, rubs, gallops LUNGS: no wheezes, rales, r honchi, good air movement, clear to auscultation bilaterally ABDOMEN: soft, nontender, non distended, no rebound tenderness, no organomegaly SKIN: good turgor
--- OUTSIDE RECORDS SUMMARY | 2024-11-04 11:00 | XMS_ITS ---
Author Organization Yfn Palmer MD Address [address] [place], [place] [phone] Care Team Providers Care Forensic Science Technician Name Role Phone Yfn Palmer Primary Care Provider [phone] RESULTS Component Value Reference Range Notes Complete Blood Count Auto Di ff Reviewed date:10/18/2024 05:30:42 PM Interpretation: Performing Lab:[facility], [address] [place] [phone] Notes/Report: White Blood Count 4.1 4.8-10.8 X10*3/uL [...] X10*3/uL REASON FOR VISIT CBC with diff MEDICATIONS Medication SIG (Take, Route, Frequency, Duration) [...] Location Date Provider Diagnosis Yfn Palmer MD [address] [place] [address] Drive [address] [place], [place] [phone] 10/18/2024 Yfn Palmer Lung nodules R91.8 ASSESSMENTS Encounter Date Diagnosis Assessment Notes Treatment Notes Treatment Clinical Notes 10/18/2024 Lung nodules (ICD-10 - R91.8) PLAN OF TREATMENT Next Appt Details Provider Name:Yfn taylor, 05/09/2025 07:00:00 AM, [address] [place] [address], [address], [place], [place], [phone], Provider Name:Yfn taylor, 05/16/2025 10:30:00 AM, [address], [address], [place], [phone],
--- OUTSIDE RECORDS SUMMARY | 2024-11-04 11:00 | XMS_ITS ---
Author Organization Yfn Palmer MD Address [address] [place] [phone] Care Team Providers Care Medical Office Supervisor Name Role Phone Yfn Palmer Primary Care Provider REASON FOR VISIT CT Chest due Encounters Encounter Location Date Provider Diagnosis Yfn Palmer MD [address] [place] [phone] 08/13/2024 Yfn Palmer Lung nodule < 6cm on CT R91.1 ASSESSMENTS Encounter Date Diagnosis Assessment Notes Treatment Notes Treatment Clinical Notes 08/13/2024 Lung nodule < 6cm on CT (ICD-10 - R91.1) Order made and put into the future order folder for PLAN OF TREATMENT Treatment Notes Assessment Notes Lung nodule < 6cm on CT Order made and p ut into the future order folder for Pending Test Test Name Order Date CT chest wo con 08/13/2024 Next Appt Details Provider Name:Yfn Jrodan ier, 05/09/2025 07:00:00 AM, [address] [place] [address], [address], [phone], Provider Name:Yfn taylor, 05/16/2025 10:30:00 AM, [address] [place] [address], [address], [phone],
--- NOTE | 2024-11-04 11:07 | MHC.OFFVIS ---
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 Patient received a left shoulder injection on 09/23/24. Patient reports the left shoulder injection she received did help her. She expresses no change in her left hip. Laying on the right side after a while exacerbates her symptoms on the left hip. Some days taking a step to ambulate aggravates her hip. Allergies celecoxib [From CELEBREX] Allergy (Unknown, Verified 11/04/24 11:13) CP epinephrine [EPINEPHRINE] Allergy (Unknown, Verified 11/04/24 11:13) HYPOTENSION galantamine [GALANTAMINE] Allergy (Unknown, Verified 11/04/24 11:13) NUMBNESS naproxen [From ALEVE] Allergy (Unknown, Verified 11/04/24 11:13) CP/NUMBNESS phenobarbital [PHENOBARBITAL] Allergy (Unknown, Verified 11/04/24 11:13) CP/NUMBNESS/TACHYCARDIA berberine Adverse Reaction (Severe, Verified 11/04/24 11:13) pain meperidine [From Demerol] Adverse Reaction (Verified 11/04/24 11:13) Vomiting Medication List - Last Reconciled 11/04/24 by Marely Rojas MD albuterol sulfate 90 mcg/actuation 2 puffs inhalation PRN aspirin (Adult Aspirin Regimen) 81 mg PO DAILY cholecalciferol (vitamin D3) 50 mcg PO DAILY leflunomide 20 mg PO DAILY lisinopril mg PO triamcinolone acetonide 0.5% appl topical HPI Comments Details: Previously seen for RUE pain. EMG below. History of fibromyalgia and RA. Then seen for left hip pain. Left is worse, points to left lateral hip that radiates to groin. Worse with walking and stairs. Does not radiate to foot. Right side is just on the pelvic bone, feels like the bone , less frequent but bothering her more nowadays.No new numbness on feet. She did have sciatica 2 years ago which has resolved over time but still feels gregoria numb . She says that the left hip pain is different from the sciatica. History of lumbar disc herniations, never had injections, treated with chiropractor at that time. She gets numbness on both hands and feet, which she attributes to Taxol 2008. Xrays done, results below. Left shoulder injection done last visit 09/23/24. Reports improvement in left shoulder pain at least 70%. X-rays did reports severe shoulder arthritis. Continues to have hip pain, lateral, more superior than trochanter area. No groin pain. [facility] Medical History History of fibromyalgia History of rheumatoid arthritis Osteoporosis Osteopoikilosis Surgical History Hx of tubal ligation Hx of cholecystectomy Hx of partial mastectomy Hx of hernia repair Family History Father Diabetes Heart disease Mother Stroke Social History Alcohol intake: current Alcohol intake frequency: holidays/special occasions only Alcohol type: wine Patient Tobacco Use Status: Never used Tobacco Current occupational status: employed Current occupation: [employer] Exam Constitutional: Patient appears to be in no acute distress, well nourished and well developed. MSK: Tenderness is not specifically on the trochanter, it's more superior. Neurological: Neurologic examination of the upper and lower extremities was nonfocal with intact sensation, muscle stretch reflexes and without focal motor deficits . Gait is non-antalgic without loss of balance. Results Reviewed Results Reviewed: Ordering Physician: Marely Pederson Date of Service: 08/11/24 Procedure(s): XR shoulder LT min 2V Accession Number(s): [id number] cc: Yfn Palmer MD; Marely Pederson~ EXAMINATION: XR SHOULDER, LEFT CLINICAL INFORMATION: Left shoulder pain COMPARISON: None available. TECHNIQUE: AP external rotation, Grashey, scapular Y, and axillary views of the left shoulder. FINDINGS: Severe degenerative changes with joint space narrowing and tiny osteophytes. XR/XR shoulder LT min 2V IMPRESSION: Severe degenerative changes of the left shoulder joint. EXAMINATION: XR BILATERAL HIPS WITH AP PELVIS CLINICAL INFORMATION: Pain COMPARISON: 06/28/2022 TECHNIQUE: AP view of the pelvis and single views of each hip were obtained. FINDINGS: No fracture. Hip joint spaces are maintained. Alignment is anatomic. Sacroiliac joints and pubic symphysis are normal. No abnormal soft tissue calcifications. XR/XR hips HONEY min 3V IMPRESSION: Normal pelvis and hips. EXAMINATION: XR lumbar spine 2-3V CLINICAL INFORMATION: M54.9 - Dorsalgia, unspecified COMPARISON: None TECHNIQUE: 3 views of the lumbar spine FINDINGS: 5 nonrib-bearing lumbar-type vertebral bodies. Vertebral body heights are maintained. Alignment is maintained. Mild multilevel degenerative disc disease with loss of disc space height, facet arthropathy and disc osteophyte complexes. This is worst at L5/S1. Atherosclerotic calcifications of the abdominal aorta. XR/XR lumbar spine 2-3V IMPRESSION: Mild spondylosis of the lumbar spine, as above detailed. Assessment & Plan Assessment & Plan (1) History of rheumatoid arthritis: Code(s): Z87.39 - Personal history of other diseases of the musculoskeletal system and connective tissue Category: Medical (2) History of fibromyalgia: Code(s): Z87.39 - Personal history of other diseases of the musculoskeletal system and connective tissue Category: Medical (3) DJD of left shoulder: Code(s): M19.012 - Primary osteoarthritis, left shoulder Category: Medical Qualifiers: Osteoarthritis type: primary Qualified Code(s): M19.012 - Primary osteoarthritis, left shoulder (4) Right hip pain: Code(s): M25.551 - Pain in right hip Category: Medical Plan 1. Referring to PT specifically for dry needling - right lateral hip pain,trochanteric area, gluteus area. 2. Left shoulder is improved s/p steroid injection. Offered referral to Dr. Sweeney for consideration of shoulder replacement. She says she's not there yet and will think about it. 3. Lower back is stable, managing. Assessment and plan discussed with patient, and patient was agreeable. All questions were answered thoroughly. Follow up 4 months. Call sooner if needed. Marely Rojas MD, MATIAS Board Certified, [place] [employer] and Rehabilitation (ABPMR) Board Certified, [place] [employer] of Electrodiagnostic Medicine (ABEM) Orders: Orders PT Evaluation and Treatment Today M19.012 - Primary osteoarthritis, left shoulder, M25.551 - Pain in right hip, Z87.39 - Personal history of other diseases of the musculoskeletal system and connective tissue Coding Level of Care Code Est Pt Level 3 (14578) Complex EM visit Add On G2211 Diagnoses History of rheumatoid arthritis Z87.39 History of fibromyalgia Z87.39 Primary osteoarthritis of left shoulder M19.012 Osteoarthritis type: primary Right hip pain M25.551
== END 2024-11-04 11:28 | disposition home or self-care (01) ==
PROVIDERS: PCP Internal Medicine; Visit Provider Physical Medicine & Rehabilitation
DX: M19.012 Primary osteoarthritis, left shoulder (principal); M25.551 Pain in right hip; Z87.39 Personal history of other diseases of the musculoskeletal system and connective tissue
CPT/HCPCS: 99213; G2211

== ENCOUNTER → 2024-11-04 10:57 | Outpatient (BNVA) | payer MEDICARE, SELFPAY | PROVIDERS: PCP Internal Medicine; Visit Provider Physical Medicine & Rehabilitation | DX: M25.551 Pain in right hip (principal); M19.012 Primary osteoarthritis, left shoulder; Z87.39 Personal history of other diseases of the musculoskeletal system and connective tissue | CPT/HCPCS: 99212 ==

== ENCOUNTER 2025-01-28 10:10 | Outpatient (REF) | payer MEDICARE, SELFPAY ==
--- NOTE | ~2025-01-28 | XR_ITS ---
EXAMINATION: XR SHOULDER, RIGHT CLINICAL INFORMATION: M67.813 - Other specified disorders of tendon, right shoulder COMPARISON: None available. TECHNIQUE: Two views of the right shoulder. FINDINGS: Normal bone mineralization. No fracture, dislocation, or suspicious bone lesion. Normal alignment. The glenohumeral joint demonstrates mild osteoarthrosis. The AC joint is normal. There is a type II acromion without undersurface spurring. The subacromial space is preserved. Remainder of the soft tissue and bony structures appear normal. XR/XR shoulder RT min 2V IMPRESSION: No acute findings right shoulder. Mild glenohumeral joint osteoarthrosis. Electronically signed by: Elias Lee MD 01/31/2025 02:37 PM EDT
== END 2025-01-28 10:11 | disposition home or self-care (01) ==
LOC: HO.HOSX 10:10
PROVIDERS: PCP Internal Medicine; Visit Provider Physical Medicine & Rehabilitation
DX: M67.813 Other specified disorders of tendon, right shoulder (principal); Z87.39 Personal history of other diseases of the musculoskeletal system and connective tissue
CPT/HCPCS: 73030; 99212

== ENCOUNTER 2025-01-28 10:10 | Outpatient (AMB) | payer MEDICARE, SELFPAY ==
[2025-01-28 10:15] VITALS: BMI 22.9
--- NOTE | 2025-01-28 10:15 | MHC.OFFVIS ---
Vital Signs 01/28/25 10:15 Height 5 ft 2 in Weight 125 lb BMI 22.9 Intake Visit Reasons: OV-RT shoulder pain interested in inj Intake Note: Rabia 69 yr old female presents today for her follow up visit for her right hip. Last visit she was referred to PT specifically for dry needling - right lateral hip pain,trochanteric area, gluteus area. States she decided not to move forward with dry needling due to feeling scared and also states her pain has improved. She is now having pain in her right shoulder. Allergies celecoxib [From CELEBREX] Allergy (Unknown, Verified 01/28/25 10:28) CP epinephrine [EPINEPHRINE] Allergy (Unknown, Verified 01/28/25 10:28) HYPOTENSION galantamine [GALANTAMINE] Allergy (Unknown, Verified 01/28/25 10:28) NUMBNESS naproxen [From ALEVE] Allergy (Unknown, Verified 01/28/25 10:28) CP/NUMBNESS phenobarbital [PHENOBARBITAL] Allergy (Unknown, Verified 01/28/25 10:28) CP/NUMBNESS/TACHYCARDIA berberine Adverse Reaction (Severe, Verified 01/28/25 10:28) pain meperidine [From Demerol] Adverse Reaction (Verified 01/28/25 10:28) Vomiting Medication List - Last Reconciled 01/28/25 by Marely Rojas MD albuterol sulfate 90 mcg/actuation 2 puffs inhalation PRN aspirin (Adult Aspirin Regimen) 81 mg PO DAILY cholecalciferol (vitamin D3) 50 mcg PO DAILY leflunomide 20 mg PO DAILY lisinopril mg PO triamcinolone acetonide 0.5% appl topical HPI Comments Details: New problem, new onset right shoulder pain last , 1 week ago. It was aching at first, maybe worse when she tried to lift in the store, points to right biceps insertion and describes it as being on fire. Now full ROM but it was not last week. Took ibuprofen 800mg with tylenol. [facility] Medical History History of fibromyalgia History of rheumatoid arthritis Osteoporosis Osteopoikilosis Surgical History Hx of tubal ligation Hx of cholecystectomy Hx of partial mastectomy Hx of hernia repair Family History Father Diabetes Heart disease Mother Stroke Social History Alcohol intake: current Alcohol intake frequency: holidays/special occasions only Alcohol type: wine Patient Tobacco Use Status: Never used Tobacco Current occupational status: employed Current occupation: [employer] Physical Exam Vital Signs: BMI result Body Mass Index 22.9 Constitutional: Patient appears to be in no acute distress, well nourished and well developed. MSK: Bilateral shoulder ROM WNL. No ligamentous laxity or crepitance. No increased effusion. Though some pain with abduction. Empty can test is negative. Drop arm test is negative. Speed's test is positive right. Neer's test is negative. Hawkin's test is negative. Tender on right biceps proximal insertion. Slightly tender on right subacromial area. Strength is 5/5 in all muscle groups tested. No increased tone noted. Neurological: Neurologic examination of the upper and lower extremities was nonfocal with intact sensation, muscle stretch reflexes and without focal motor deficits . Hollins?s negative bilaterally. Gait is non-antalgic without loss of balance. Assessment & Plan Assessment & Plan (1) Biceps tendinosis of right shoulder: Code(s): M67.813 - Other specified disorders of tendon, right shoulder Category: Medical (2) History of rheumatoid arthritis: Code(s): Z87.39 - Personal history of other diseases of the musculoskeletal system and connective tissue Category: Medical Plan Acute onset right bicipital tendinitis, with history of rheumatoid arthritis. Pain and gdawt-vw-ehzgpr already improved since last week. We talked about need for anti-inflammatory, deciding between ibuprofen versus oral prednisone. Since she has other joint pains and has not been able to follow up with mc kay machine operator recently, we decided that short burst of oral prednisone would be best. Instructions and precautions discussed. Side effects discussed. We checked, and confirmed that it would be safe to take with leflunomide. Getting right shoulder x-ray for baseline. Suspect at least moderate degenerative changes, because that was seen in the left shoulder x-ray. Referring her to our mc kay machine operator here in [place] as her previous mc kay machine operator has not not been in the office consistently recently. Assessment and plan discussed with patient, and patient was agreeable. All questions were answered thoroughly. She was a schedule follow up with me in couple of weeks for other issues. Marely Rojas MD, MATIAS Board Certified, [place] [employer] and Rehabilitation (ABPMR) Board Certified, [place] Board [employer] Electrodiagnostic Medicine (ABEM) Orders: Orders XR shoulder RT min 2V Today M67.813 - Other specified disorders of tendon, right shoulder Referrals Rheumatology Referral M19.90 - Unspecified osteoarthritis, unspecified site, M67.813 - Other specified disorders of tendon, right shoulder, Z87.39 - Personal history of other diseases of the musculoskeletal system and connective tissue Medications: New prednisone see taper instructions; 40 mg Daily for three days, 30 mg daily for three days, 20 mg daily for three days, 10 mg daily for three days 5 mg PO DIRECTED 60 tabs 0RF Coding Level of Care Code Est Pt Level 4 (34456) Diagnoses Biceps tendinosis of right shoulder M67.813 History of rheumatoid arthritis Z87.39
--- OUTSIDE RECORDS SUMMARY | 2025-01-28 11:24 | XMS_ITS ---
Author Organization Yfn Palmer MD Address [address] [place], [place] [phone] Care Team Providers Care Flight Attendant/Inflight Supervisor Name Role Phone Yfn Palmer Primary Care Provider [phone] Results Component Value Reference Range Notes Complete Blood Count Auto Di ff Reviewed date:10/18/2024 05:30:42 PM Interpretation: Performing Lab:[facility], [address] [place] [phone] Notes/Report: White Blood Count 4.1 4.8-10.8 X10*3/uL [...] Date Provider Diagnosis Yfn Palmer MD [address] [place], [place] [phone] 10/18/2024 Yfn Palmer Lung nodules R91.8 Assessments Encounter Date Diagnosis (ICD Code) Assessment Notes Treatment Notes Treatment Clinical Notes Section Notes 10/18/2024 Lung nodules (ICD-10 - R91.8) Plan Of Treatment Next Appt Details Provider Name:Yfn taylor, 05/09/2025 07:00:00 AM, [address] [place] [address] Drive, [address], [place], [place], [phone], Provider Name:Yfn Jordan ier, 05/16/2025 10:30:00 AM, [address], [address], [place], [phone], Progress Notes * Aixa CATALANneDOB:1955 (69 yo F)Acc No.[id number]:10/18/2024 Progress Note Patient:?Rabia CATALAN Provider:?Yfn Palmer MD :1955???Age:68 Y???Sex:Female D ate:10/18/2024 Address:[address] , [facility] Subjective: * Chief Complaints: * ???1. CBC with diff. * Medical History:? * Medications:?Taking Aspir-Lo w 81 MG Tablet Delayed Release 1 tablet [...] as needed Inhalation every 4 hrs , Not- Taking/PRN Carol Allergy 180 MG Tablet 1 tablet Orally Once a day , Not-Taking/PRN Lidocaine Plus 4 % Cream 1 application Externally as needed Objective: * Vitals:? Assessment: * Assessment: 1.?Lung nodules - R91.8??? Plan: * Treatment: * * The named appointment provid er may or may not be the originator of this progress note, and it is not deemed complete until electronically signed by the appointment provider. Sign off status: Pending * Provider:?Yfn Palmer MD Date:?1 12/18/2023 Generated for Freddy nieves/Jaison/Pabloitting on:?01/28/2025 11:24 AM EST
--- OUTSIDE RECORDS SUMMARY | 2025-01-28 11:24 | XMS_ITS ---
Author Organization Yfn Palmer MD Address [address] [place], [place] [id number] Care Team Providers Care Platform Beater Name Role Phone Yfn Palmer Primary Care [...] Location Date Provider Diagnosis Yfn Palmer MD [address] [place] [address] [place] [phone] 08/16/2024 Yfn Palmer Lung nodules R91.8 and [...] Details Provider Name:Yfn taylor, 05/09/2025 07:00:00 AM, [address] [place] [address], [address], [phone], Provider Name:Yfn taylor, 05/16/2025 10:30:00 AM, [address] [place] [address], [address], [phone], Progress Notes * Brie CATALANOB:1955 (68 yo F)Acc No.[id number]:08/16/2024 Progress Notes Patient:?ALAYNAAixane Provider:?Yfn Palmer MD :1955???Age:68 Y???Sex:Female D ate:08/16/2024 Address:[place], [id number] Subjective: * Chief Complaints: * ???2 month * HPI: ???Pediatric Developmental Evaluation:?Symptom(s):? patient is a 68 yo female here for 2 month follow up visit.still having some minor discofort in abdomen. * ROS:?General/Constitutional:?Denies?Chills.?Denies?Fatigue.?Denies?Fever.?Denies?Headache.?ENT:?Patient denies?decreased sense of smell, any loss of taste, sore throat.?Denies?Sore throat.?Respiratory:?Denies?Cough.?Denies?Shortness of breath at rest.?Denies?Shortness of breath with exertion.?Gastrointestinal:?Denies?Diarrhea.?Denies?Nausea.?Musculoskeletal:?Patient denies?muscle aches.?Peripheral Vascular:?Patient denies?red and blue toes.? * Medical History:? * Surgical History:? * Hospitalization/Major Diagno stic Procedure:? * Medications:?TakingAspir-Low 81 MG Tablet Delayed Release 1 tablet [...] reviewed and reconciled with the patient * Allergies:?Phenobarbital: pa lpitationsEPINEPHrine: low BPCelebrex: chest painAleve: chest painHydrocodone-Acetaminophen: itch vomitingGalantamine Hydrobromide: numbnessLipitor: rhabdomyalissiyes[Allergies Verified] Objective: * Vitals:?Ht: 62.5, Wt:132, BM I:23.76, BP:136/64. * Examination: ???General Examination: ?GENERAL APPEARANCE:? alert, well hydrated, in no distress .?HEAD:? normocephalic.?SKIN:? good turgor.?HEART:? regular rate and rhythm, no murmurs, rubs, gallops.?LUNGS:? no wheezes, rales, rhonchi, good air movement, clear to auscultation bilaterally.?ABDOMEN:? soft, nontender, nondistended, no rebound tenderness, no organomegaly .? Assessment: * Assessment: 1.?Lung nodules - R91.8 (Cherise cruz)?2.?Neutropenia, unspecified type - D70.9? Plan: * Treatment: 2.?Neutropenia, unspecified type? Notes: will contnue to monitor , lab ordered, pending?? * Immunizations:? Influenza High Dose (Not administered - Refused: Patient decision) * Procedure Codes:? * * Sign off status: Completed true * Provider:?Yfn Palmer MD Date:?0 08/16/2024 Generated for Freddy nieves/Jaison/Pabloitting on:?01/28/2025 11:24 AM EST History and Physical Notes * [...]
--- OUTSIDE RECORDS SUMMARY | 2025-01-28 11:25 | XMS_ITS ---
Author Organization Yfn Palmer MD Address [address] [place] [phone] Care Team Providers Care Buckle Assembler Name Role Phone Yfn Palmer Primary Care Provider [phone] Chest due Encounters Encounter Location Date Provider Diagnosis Yfn Palmer MD [address] [place] [phone] 08/13/2024 Yfn Palmer Lung nodule < 6cm [...] con 08/13/2024 Next Appt Details Provider Name:Yfn Jordan iejonn, 05/09/2025 07:00:00 AM, [address] [place] [address], [address], [phone], Provider Name:Yfn taylor, 05/16/2025 10:30:00 AM, [address] [place] [address], [address], [phone], Progress Notes * Brie CATALANOB:1955 (68 yo F)Acc No.[id number]:08/13/2024 Patient:?Rabia CATALAN :1955???Age:68 Y???Sex:Female Address:[address] [place] [address] [place], [address] Subjective: * Chief Complaints: * ???CT Chest due * Medical History:? * Surgical History:? * Hospitalization/Major Diagno stic Procedure:? * Medications:? Objective: Assessment: * Assessment: 1.?Lung nodule < 6cm on CT - R91.1? Plan: * Treatment: Notes: Order made and put into the future order folder for ?? * Procedure Codes:? * true * Date:? Generated for Freddy nieves/Jaison/eTyumikosmitting on:?01/28/2025 11:24 AM EST
== END 2025-01-28 10:58 | disposition home or self-care (01) ==
PROVIDERS: PCP Internal Medicine; Visit Provider Physical Medicine & Rehabilitation
DX: M67.813 Other specified disorders of tendon, right shoulder (principal); Z87.39 Personal history of other diseases of the musculoskeletal system and connective tissue
CPT/HCPCS: 99214

== ENCOUNTER → 2025-01-28 11:02 | Outpatient (BNV) | payer MEDICARE, SELFPAY | PROVIDERS: PCP Internal Medicine; Visit Provider Radiology Diagnostic Radiology | DX: M67.813 Other specified disorders of tendon, right shoulder (principal) | CPT/HCPCS: 73030 ==

== ENCOUNTER 2025-02-10 10:59 | Outpatient (AMB) | payer MEDICARE, SELFPAY ==
[2025-02-10 11:14] VITALS: BMI 22.9
--- NOTE | 2025-02-10 11:14 | MHC.OFFVIS ---
Vital Signs 02/10/25 11:14 Height 5 ft 2 in Weight 125 lb BMI 22.9 Intake Visit Reasons: OV- B/L hips 4 Month F/U Intake Note: Rabia 69 yr old female presents today for a follow up visit for her Biceps tendinosis of right shoulder s/p taking prednisone. States medication has helped with her shoulder pain and as per patient it has helped me with everything and [place] been pain free since started taking medication . Allergies celecoxib [From CELEBREX] Allergy (Unknown, Verified 02/10/25 11:18) CP epinephrine [EPINEPHRINE] Allergy (Unknown, Verified 02/10/25 11:18) HYPOTENSION galantamine [GALANTAMINE] Allergy (Unknown, Verified 02/10/25 11:18) NUMBNESS naproxen [From ALEVE] Allergy (Unknown, Verified 02/10/25 11:18) CP/NUMBNESS phenobarbital [PHENOBARBITAL] Allergy (Unknown, Verified 02/10/25 11:18) CP/NUMBNESS/TACHYCARDIA berberine Adverse Reaction (Severe, Verified 02/10/25 11:18) pain meperidine [From Demerol] Adverse Reaction (Verified 02/10/25 11:18) Vomiting HPI Comments Details: Seen 01/29/2024 for acute onset right-sided shoulder pain, suspected bicipital tendinitis. Treated with short burst of oral prednisone. This no improved. No more pain. X-ray done that day showed minimal arthritic change only. No side effects. Still on 2mg per instructions. She is worried though that she would have rebound. History of RA and fibromyalgia. [facility] Medical History History of fibromyalgia History of rheumatoid arthritis Osteoporosis Osteopoikilosis Surgical History Hx of tubal ligation Hx of cholecystectomy Hx of partial mastectomy Hx of hernia repair Family History Father Diabetes Heart disease Mother Stroke Social History Alcohol intake: current Alcohol intake frequency: holidays/special occasions only Alcohol type: wine Patient Tobacco Use Status: Never used Tobacco Current occupational status: employed 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 [employer] Physical Exam Vital Signs: BMI result Body Mass Index 22.9 Right shoulder full range of motion. No tenderness to touch. Negative Gastelum sign. Negative empty can sign. Negative speed's test. Assessment & Plan Assessment & Plan (1) Biceps tendinosis of right shoulder: Code(s): M67.813 - Other specified disorders of tendon, right shoulder Category: Medical (2) History of rheumatoid arthritis: Code(s): Z87.39 - Personal history of other diseases of the musculoskeletal system and connective tissue Category: Medical Plan She is asking if we can prolong to wean from oral prednisone. She is currently on day 1 of 10 mg. We will extend from 3-5 days of 10 mg/day. Then 5 mg/day for another 5 days. Then discontinue. Discussed side effects and precautions. She is still being managed under Dr. Resendiz's office for RA. But she has an appointment with [facility] in August. Assessment and plan discussed with patient, and patient was agreeable. All questions were answered thoroughly. Follow up 1-2 months. Marely Rojas MD, MATIAS Board Certified, [place] [employer] and Rehabilitation (ABPMR) Board Certified, [place] [employer] Electro[employer]ostic [employer] (ABEM) Medications: New prednisone 10mg daily for 2 more days, 5 mg daily for 5 days, then discontinue 5 mg (1/2 x 10 mg) PO DIRECTED 9 tabs 0RF Coding Level of Care Code Est Pt Level 4 (91165) Diagnoses Biceps tendinosis of right shoulder M67.813 History of rheumatoid arthritis Z87.39
== END 2025-02-10 11:33 | disposition home or self-care (01) ==
LOC: HO.HOS 10:59
PROVIDERS: PCP Internal Medicine; Visit Provider Physical Medicine & Rehabilitation
DX: M67.813 Other specified disorders of tendon, right shoulder (principal); Z87.39 Personal history of other diseases of the musculoskeletal system and connective tissue
CPT/HCPCS: 99214

== ENCOUNTER → 2025-02-10 10:59 | Outpatient (BNVA) | payer MEDICARE, SELFPAY | PROVIDERS: PCP Internal Medicine; Visit Provider Physical Medicine & Rehabilitation | DX: M25.511 Pain in right shoulder (principal); M67.813 Other specified disorders of tendon, right shoulder; M79.7 Fibromyalgia; M06.9 Rheumatoid arthritis, unspecified; Z87.39 Personal history of other diseases of the musculoskeletal system and connective tissue | CPT/HCPCS: 99212 ==

== ENCOUNTER 2025-03-25 08:20 | Outpatient (AMB) | payer MEDICARE, SELFPAY ==
[2025-03-25 08:25] VITALS: BMI 23.6
--- NOTE | 2025-03-25 08:25 | MHC.OFFVIS ---
Vital Signs 03/25/25 08:25 Height 5 ft 2 in Weight 129 lb BMI 23.6 Intake Visit Reasons: OV-Follow up B/L hips/right shoulder Intake Note: Rabia is a 69 year female who presents today for a follow up of her Right Shoulder and Bilateral Hips. At her last visit in January she reported significant relief with Prednisone, because of this her prescription was extended. Currently states she is a lot better. She has some soreness in her hips at times but better over all. Allergies celecoxib [From CELEBREX] Allergy (Unknown, Verified 03/25/25 08:26) CP epinephrine [EPINEPHRINE] Allergy (Unknown, Verified 03/25/25 08:26) HYPOTENSION galantamine [GALANTAMINE] Allergy (Unknown, Verified 03/25/25 08:26) NUMBNESS naproxen [From ALEVE] Allergy (Unknown, Verified 03/25/25 08:26) CP/NUMBNESS phenobarbital [PHENOBARBITAL] Allergy (Unknown, Verified 03/25/25 08:26) CP/NUMBNESS/TACHYCARDIA berberine Adverse Reaction (Severe, Verified 03/25/25 08:26) pain prednisone Adverse Reaction (Severe, Verified 03/25/25 08:45) chest pain meperidine [From Demerol] Adverse Reaction (Verified 03/25/25 08:26) Vomiting HPI Comments Details: Last few months, we've been managing right biceps tendinitis. Given her short burst oral prednisone which helped her a lot, but then on last visit, she urged me to extend further despite my concerns. Then she tells me today, that she became crazy . She stopped it and felt better. She has also started seeing a new drafter directional survey who has started her hydroxychloroquine and methylprednisone. She took one methylprednisone one day and started having chest discomfort, stopped the medicine and now feels better. She saw a sterile supervisor. She will see the drafter directional survey in May. Hydroxychloroquine is helping. Will see a sterile supervisor next week for the chest pain. [facility] Medical History History of fibromyalgia History of rheumatoid arthritis Osteoporosis Osteopoikilosis Surgical History Hx of tubal ligation Hx of cholecystectomy Hx of partial mastectomy Hx of hernia repair Family History Father Diabetes Heart disease Mother Stroke Social History Alcohol intake: current Alcohol intake frequency: holidays/special occasions only Alcohol type: wine Patient Tobacco Use Status: Never used Tobacco Current occupational status: employed Current occupation: [employer] Physical Exam Vital Signs: BMI result Body Mass Index 23.6 Bilateral shoulder full range of motion. No tenderness to touch. Negative Gastelum sign. Negative empty can sign. Negative speed's test. Results Reviewed Results Reviewed: Ordering Physician: Marely Pederson Date of Service: 08/11/24 Procedure(s): XR shoulder LT min 2V Accession Number(s): [id number] cc: Yfn Palmer MD; Marely Pederson~ EXAMINATION: XR SHOULDER, LEFT CLINICAL INFORMATION: Left shoulder pain COMPARISON: None available. TECHNIQUE: AP external rotation, Grashey, scapular Y, and axillary views of the left shoulder. FINDINGS: Severe degenerative changes with joint space narrowing and tiny osteophytes. XR/XR shoulder LT min 2V IMPRESSION: Severe degenerative changes of the left shoulder joint. EXAMINATION: XR BILATERAL HIPS WITH AP PELVIS CLINICAL INFORMATION: Pain COMPARISON: 06/28/2022 TECHNIQUE: AP view of the pelvis and single views of each hip were obtained. FINDINGS: No fracture. Hip joint spaces are maintained. Alignment is anatomic. Sacroiliac joints and pubic symphysis are normal. No abnormal soft tissue calcifications. XR/XR hips HONEY min 3V IMPRESSION: Normal pelvis and hips. EXAMINATION: XR lumbar spine 2-3V CLINICAL INFORMATION: M54.9 - Dorsalgia, unspecified COMPARISON: None TECHNIQUE: 3 views of the lumbar spine FINDINGS: 5 nonrib-bearing lumbar-type vertebral bodies. Vertebral body heights are maintained. Alignment is maintained. Mild multilevel degenerative disc disease with loss of disc space height, facet arthropathy and disc osteophyte complexes. This is worst at L5/S1. Atherosclerotic calcifications of the abdominal aorta. XR/XR lumbar spine 2-3V IMPRESSION: Mild spondylosis of the lumbar spine, as above detailed. Assessment & Plan Assessment & Plan (1) Biceps tendinosis of right shoulder: Code(s): M67.813 - Other specified disorders of tendon, right shoulder Category: Medical (2) History of fibromyalgia: Code(s): Z87.39 - Personal history of other diseases of the musculoskeletal system and connective tissue Category: Medical (3) History of rheumatoid arthritis: Code(s): Z87.39 - Personal history of other diseases of the musculoskeletal system and connective tissue Category: Medical Plan She is doing well without shoulder or hip pain currently. She is going to follow with Cardiology for chest pain, next week. She is now following with a new drafter directional survey. Added prednisone on list of allergies. Assessment and plan discussed with patient, and patient was agreeable. All questions were answered thoroughly. Total of 30 minutes spent today including chart review, results review, history taking, physical examination, discussion of assessment and plan, and coordination of care. Marely Rojas MD, MATIAS Board Certified, [place] [employer] and [employer] (ABPMR) Board Certified, [place] [employer] Electrodiagnostic [employer] (ABEM) Coding Level of Care Code Est Pt Level 4 (23641) Diagnoses Biceps tendinosis of right shoulder M67.813 History of fibromyalgia Z87.39 History of rheumatoid arthritis Z87.39
== END 2025-03-25 08:48 | disposition home or self-care (01) ==
LOC: HO.HOS 08:21
PROVIDERS: PCP Internal Medicine; Visit Provider Physical Medicine & Rehabilitation
DX: M67.813 Other specified disorders of tendon, right shoulder (principal); Z87.39 Personal history of other diseases of the musculoskeletal system and connective tissue
CPT/HCPCS: 99214

== ENCOUNTER → 2025-03-25 08:20 | Outpatient (BNVA) | payer MEDICARE, SELFPAY | PROVIDERS: PCP Internal Medicine; Visit Provider Physical Medicine & Rehabilitation | DX: M67.813 Other specified disorders of tendon, right shoulder (principal); M25.552 Pain in left hip; M25.551 Pain in right hip; Z87.39 Personal history of other diseases of the musculoskeletal system and connective tissue | CPT/HCPCS: 99212 ==

== ENCOUNTER 2025-05-05 10:50 | Outpatient (REF) | payer MEDICARE, SELFPAY ==
[2025-05-05 11:11] LABS: Appearance Urine Clear; Color Urine Yellow; Glucose Urine UA Negative (Negative); Leukocyte Esterase Urine Small (1+) (Negative); Nitrite Urine Negative (Negative); PH 5.5 (5.0-9.0); Specific Gravity - Urine 1.015 (1.005-1.025); UMIC TRIGGER UACC YES; Urine Blood Negative (Negative); Urine Ketones Negative (Negative); Urine Protein Negative (Neg-Trace)
[2025-05-05 11:21] LABS: Bacteria Urine Trace (None Seen); Hyaline Casts Urine 0-2 /LPF (0-2); RBC Urine 0-2 /HPF (0-2); UACC Culture Trigger YES; WBC Urine 0-5 /HPF (0-5)
--- OUTSIDE RECORDS SUMMARY | 2025-05-05 12:43 | XMS_ITS ---
Author Organization Yfn Palmer MD Address [address] [place] [phone] Care Team Providers Care Tar Leveler Name Role Phone Yfn Palmer Primary Care Provider REASON FOR VISIT medication isue Encounters Encounter Location Date Provider Diagnosis Yfn Palmer MD [address] [facility] [address] [place] [phone] 04/07/2025 Yfn Palmer Plan Of Treatment Next Appt Details Provider Name:Yfn taylor, 05/09/2025 07:00:00 AM, [address] [place] [address], [address], [phone], Provider Name:Yfn taylor, 05/16/2025 10:30:00 AM, [address] [place] [address], [address], [phone], Progress Notes * Brie CATALANOB:1955 (69 yo F)Acc No.[id number]:04/07/2025 Patient:?Rabia CATALAN :1955???Age:69 Y???Sex:Female Address:[address] [place], [address] * true * Date:? Generated for Printi lizbeth/Jaison/eTransmitting on:?05/05/2025 12:43 PM EDT
== END 2025-05-05 10:51 | disposition home or self-care (01) ==
LOC: HO.LNP 10:50
PROVIDERS: Visit Provider Internal Medicine
DX: N39.0 Urinary tract infection, site not specified (principal)
CPT/HCPCS: 81001; 87086

== ENCOUNTER 2025-05-09 10:21 | Outpatient (REF) | payer MEDICARE, SELFPAY ==
[2025-05-09 10:26] LABS: MANUAL DIFF FLAG NO
[2025-05-09 10:54] LABS: Basophils Absolute Auto 0.1 X10*3/uL (0.0-0.2); Basophils Percent Auto 1.9 % (0-2); Eosinophils Absolute Auto 0.3 X10*3/uL (0.0-0.4); Eosinophils Percent Auto 9.1 % (0-4); Hematocrit 37.5 % (37.0-47.0); Hemoglobin 12.2 g/dl (12.0-16.0); Imm Gran Abs Auto 0.01 X10*3/uL (0.00-0.03); Imm Gran Pct Auto 0.3 % (0.0-0.4); Lymphocytes Absolute Auto 1.5 X10*3/uL (1.2-4.9); Lymphocytes Percent Auto 40.7 % (20-40); Mean Corpuscular HGB Conc 32.5 g/dl (31.0-35.0); Mean Corpuscular Hemoglobin 32.3 pg (27.0-33.0); Mean Corpuscular Volume 99.2 fL (80.0-98.0); Mean Platelet Volume 12.7 fL (9.4-12.3); Monocytes Absolute Auto 0.5 X10*3/uL (0.1-1.2); Monocytes Percent Auto 12.9 % (2-11); Neutrophils Absolute Auto 1.3 x10*3/uL (2.0-8.3); Neutrophils Percent Auto 35.1 % (45-73); Platelet Count 182 X10*3/uL (160-400); Red Blood Count 3.78 X10*6/uL (4.20-5.50); Red Cell Distribution Width 11.9 % (11.0-16.0); White Blood Count 3.6 X10*3/uL (4.8-10.8)
[2025-05-09 11:00] LABS: Alanine Aminotransferase 14 U/L (0-31); Alkaline Phosphatase 68 U/L (39-117); Anion Gap 9 (12-20); Aspartate Amino Transferase 22 U/L (5-31); Bilirubin Total 0.5 mg/dL (0.0-1.0); Blood Urea Nitrogen 13 mg/dL (9-16); Carbon Dioxide 28 mmol/L (22-29); Chloride 108 mmol/L (96-108); Cholesterol 226 mg/dL (<200); Estimated Glomerular Filt Rate > 60; Glucose Fasting 86 mg/dL (60-99); HDL Cholesterol 49 mg/dL (>40); LDL Cholesterol Calculated 156 mg/dL (<100); Sodium 141 mmol/L (135-145); Total Protein 6.3 g/dL (6.5-8.0); Triglycerides 105 mg/dL (<150)
--- OUTSIDE RECORDS SUMMARY | 2025-05-09 11:34 | XMS_ITS ---
Author Organization Yfn Palmer MD Address [address] [place] [phone] Care Team Providers Care Wellness Trainer Name Role Phone Yfn Palmer Primary Care Provider [phone] REASON FOR VISIT medication isue Encounters Encounter Location Date Provider Diagnosis Yfn Palmer MD [address] [place] [phone] 04/07/2025 Yfn Palmer Plan Of Treatment Next Appt Details Provider Name:Yfn Jordan ier, 05/16/2025 10:30:00 AM, [address], Suite [facility], [place], [place], [phone], Progress Notes * Brie CATALANOB:1955 (69 yo F)Acc No.[id number]:04/07/2025 Patient:?Rabia CATALAN :1955???Age:69 Y???Sex:Female Address:[address] [place], [address] * true * Date:? Generated for Printi ng/Faxing/eTransmitting on:?05/09/2025 11:33 AM EDT
== END 2025-05-09 10:22 | disposition home or self-care (01) ==
LOC: HO.LNP 10:21
PROVIDERS: Visit Provider Internal Medicine
DX: Z00.00 Encounter for general adult medical examination without abnormal findings (principal); E78.00 Pure hypercholesterolemia, unspecified; D70.9 Neutropenia, unspecified
CPT/HCPCS: 80053; 80061; 85025

== ENCOUNTER 2025-05-30 11:58 | Outpatient (REF) | payer MEDICARE, SELFPAY ==
--- OUTSIDE RECORDS SUMMARY | 2025-05-05 06:00 | XMS_ITS ---
Author Organization Yfn Palmer MD Address [address] [place] [phone] Care Team Providers Care Yard Specialist Name Role Phone Yfn Palmer Primary Care Provider Results Component Value Reference Range Notes UA ClnCatch+Micro w/rflx Cul t Reviewed date:05/05/2025 05:26:19 PM Interpretation: Performing Lab:[facility], [address] [place] [phone] Notes/Report: Urine, Clean Catch Color Urine Yellow Appearance Urine Clear PH 5.5 5.0-9.0 Glucose Urine UA Negative Negative mg/dL Urine Blood Negative Negative Specific [place] - Urine 1.015 1.005-1.025 Urine Protein Negative [...] Yfn Palmer MD [address] [place] [phone] 05/05/2025 Yfn Palmer UTI (urinary tract infection) N39.0 Assessments Encounter Date Diagnosis (ICD Code) Assessment Notes Treatment Notes Treatment Clinical Notes Section Notes 05/05/2025 UTI (urinary tract infection) (ICD-10 - N39.0) Plan Of Treatment Next Appt Details Provider Name:Yfn Jordan ier, 11/21/2025 08:00:00 AM, [address], Suite [facility], [place], [phone], Provider Name:Yfn Jordan ier, 11/28/2025 02:00:00 PM, [address] [place] [address], Suite [facility], [place], [phone], Provider Name:Yfn Jordan ier, 05/11/2026 07:15:00 AM, [address], Suite [facility], [place], [phone], Provider Name:Yfn Jordan ier, 05/19/2026 02:30:00 PM, [address] [place] [address], Suite [facility], [place], [phone], Progress Notes * ALAYNABrieOB:1955 (69 yo F)Acc No.[id number]:05/05/2025 Progress Note Patient: Rabia TALAMANTES Provider: Joey Palmer MD :1955 A ge:69 Y S ex:Female Date:05/05/2025 Address:[address] [id number] Subjective: * Chief Complaints: * 1 . [...] Pending * Provider: Joey Palmer MD Date: 05/05/2025 Generated for Freddy nieves/Jaison/Pabloitting on: 05/30/2025 12:50 PM EDT
== END 2025-05-30 11:59 | disposition home or self-care (01) ==
LOC: HO.MAMMO 11:58
PROVIDERS: PCP Internal Medicine; Visit Provider Internal Medicine
DX: Z12.31 Encounter for screening mammogram for malignant neoplasm of breast (principal)
CPT/HCPCS: 77063; 77067

== ENCOUNTER → 2025-05-30 12:15 | Outpatient (BNV) | payer MEDICARE, SELFPAY | PROVIDERS: PCP Internal Medicine; Visit Provider Radiology Body Imaging | DX: Z12.31 Encounter for screening mammogram for malignant neoplasm of breast (principal) | CPT/HCPCS: 77063; 77067 ==

== ENCOUNTER 2025-07-20 14:03 | Outpatient (AMB) | payer MEDICARE, SELFPAY ==
--- OUTSIDE RECORDS SUMMARY | 2025-05-09 03:00 | XMS_ITS ---
Author Organization Yfn Palmer MD Address [address] [place], [place] [id number] Care Team Providers Care Dairy Equipment Repairer Name Role Phone Yfn Palmer Primary Care Provider Results Component Value Reference Range Notes Complete Blood Count Auto Di ff Reviewed date:05/10/2025 05:05:27 PM Interpretation: Performing Lab:[facility], [address] [place] [phone] Notes/Report: White Blood Count 3.6 4.8-10.8 X10*3/uL [...] NRBC Abs Auto 0.000 0.0-0.012 X10*3/uL Comprehensive [place]. Panel Fa st Reviewed date:05/09/2025 12:44:57 PM Interpretation: Performing Lab:[address] [phone] Notes/Report: Sodium 141 135-145 mmol/L Potassium 4.0 [...] Panel Reviewed date:05/09/2025 12:06:05 PM Interpretation: Performing Lab:[facility], [address] [place] [phone] Notes/Report: Triglycerides 105 <150 mg/dL Desirable Triglyceride: [...] Location Date Provider Diagnosis Yfn Palmer MD [address] [place] [address] [place] [phone] 05/09/2025 Yfn Palmer Blood tests for rout [...] Details Provider Name:Yfn taylor, 11/21/2025 08:00:00 AM, [address] [place] [address], Suite [facility], [place], [place], [phone], Provider Name:Yfn taylor, 11/28/2025 02:00:00 PM, [address] [place] [address], [place] [address], [place], [place], [phone], Provider Name:Yfn taylor, 05/11/2026 07:15:00 AM, [address] [place] [address], [place] [address], [place], [place], [phone], Provider Name:Yfn taylor, 05/19/2026 02:30:00 PM, [address], [address], [place], [place], [phone], Progress Notes * Brie CATALANOB:1955 (69 yo F)Acc No.[id number]:05/09/2025 Progress Note Patient: Rabia TALAMANTES Provider: Joey Palmer MD :1955 A ge:69 Y S ex:Female Date:05/09/2025 Address:[address] [facility] Subjective: * Chief Complaints: * 1 . [...] - 05/09/2025 07:00 AM) L AB: Comprehensive [place]. Panel Fast (Collection Date & Time - 05/09/2025 07:00 AM) L AB: Lipid Panel (Collection Date & Time - 05/09/2025 07:00 AM) 3. N eutropenia, unspecified type L AB: UA ClnCatch+Micro w/rflx Cult L AB: Complete Blood Count Auto Diff (Collection Date & Time - 05/09/2025 07:00 AM) L AB: Comprehensive [place]. Panel Fast (Collection Date & Time - [...] 0 05/09/2025 Generated for Freddy nieves/Jaison/eTransmitting on: 0 07/20/2025 02:58 PM EDT
--- OUTSIDE RECORDS SUMMARY | 2025-05-16 06:30 | XMS_ITS ---
Author Organization Yfn Palmer MD Address [address] [place], [place] [id number] Care Team Providers Care Bilingual Instructor Name Role Phone Yfn Palmre Primary Care Provider [phone] Allergies Allergen (clinical drug ingredient) Drug/Non Drug [...] Provider DENISE STEVENSON Referred Provider Specialty Pulmonary [facility] General Notes Cait Galan 0 05/16/2025 [...] Status Risk Notes Problem Genital herpes simplex (38140718) Herpesviral infection of urogenital system, 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 confirmed Vital Signs Blood pressure systolic 128 mm Hg 05/16/20 25 Blood pressure diastolic 52 mm Hg 025 Height 62.5 in 05/16/2025 Weight 138 lbs 05/16/2025 BMI 24.84 kg/m2 05/16/2025 weight is up 1 pound since Encounters Encounter Location Date Provider Diagnosis Yfn Palmer MD [address] [place], [place] [phone] 05/16/2025 Yfn Palmer Wheezing R06.2 ; David [...] Name:Yfn Jordan ier, 11/21/2025 08:00:00 AM, [address] [facility], [address] [facility], [place], [place], [phone], Provider Name:Yfn Jordan claudia, 11/28/2025 02:00:00 PM, [address] [place] [address], Suite [facility], [place], [place], [phone], Provider Name:Yfn Jordan ier, 05/11/2026 07:15:00 AM, [address] [place] [address], Suite [facility], [place], [place], [phone], Provider Name:Yfn Jordan ier, 05/19/2026 02:30:00 PM, [address] [place] [address], Suite [facility], [place], [phone], Progress Notes * Aixa CATALANneDOB:1955 (69 yo F)Acc No.[id number]:05/16/2025 Progress Notes Patient: Rabia TALAMANTES Provider: Joey Palmer MD :1955 A ge:69 Y S ex:Female Date:05/16/2025 [facility] Subjective: * Chief Complaints: * A NNUAL [...] she presses on it. wants to see extension service specialist in charge. * ROS: G eneral/Constitutional: Change in appetite [...] 04-07-25. * P ast Orders: L ab:Comprehensive [place]. Panel Fast (Order Date - 05/09/2025) (Collection [...] mg/dL Urine Blood Negative Negative - Specific [place] - Urine 1.015 1.005-1.025 - Urine Protein [...] 0 05/16/2025 Generated for Freddy nieves/Jaison/eTransmitting on: 0 07/20/2025 02:59 PM EDT History and Physical Notes * HPI (History of Present Illness) Category Sub-Category Detail Notes Category Not es Symptom(s) patient is a 69 yo female here for annual visit with review of recent labs and follow up of chronic issues. still has the pain in her rt chest all the time. feels it when she presses on it. wants to see extension service specialist in charge Depression Screening PHQ-9 Little interest or pleasure [...]
--- OUTSIDE RECORDS SUMMARY | 2025-06-14 11:11 | XMS_ITS ---
Author Organization Yfn Palmer MD Address 10 [facility] [address] [place] [phone] Care Team Providers Care Locator Specialist Name Role Phone Yfn Palmer Primary Care Provider REASON FOR VISIT Chest CT Scan is due Encounters Encounter Location Date Provider Diagnosis Yfn Palmer MD [address] [place] [address] [address] [place] [phone] 06/14/2025 Yfn Palmer Plan Of Treatment Next Appt Details Provider Name:Yfn taylor, 11/21/2025 08:00:00 AM, [address] [place] [address], [address], [phone], Provider Name:Yfn taylor, 11/28/2025 02:00:00 PM, [address] [place] [address], [address], [phone], Provider Name:Yfn taylor, 05/11/2026 07:15:00 AM, [address] [place] [address], [address], [phone], Provider Name:Yfn taylor, 05/19/2026 02:30:00 PM, [address] [place] [address], [address], [phone], Progress Notes * Brie CATALANOB:1955 (69 yo F)Acc No.[id number]:06/14/2025 Patient: Rabia TALAMANTES :1955 A ge:69 Y S ex:Female Address:[place], [address] * * Date:
--- NOTE | 2025-07-20 14:19 | A.OFFVIS_ITS ---
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 Required: No Allergies celecoxib (From CELEBREX) Allergy (Unknown, Verified 07/20/25 15:20) CP epinephrine (EPINEPHRINE) Allergy (Unknown, Verified 07/20/25 15:20) HYPOTENSION galantamine (GALANTAMINE) Allergy (Unknown, Verified 07/20/25 15:20) NUMBNESS naproxen (From ALEVE) Allergy (Unknown, Verified 07/20/25 15:20) CP/NUMBNESS phenobarbital (PHENOBARBITAL) Allergy (Unknown, Verified 07/20/25 15:20) CP/NUMBNESS/TACHYCARDIA berberine Adverse Reaction (Severe, Verified 07/20/25 15:20) pain prednisone Adverse Reaction (Severe, Verified 07/20/25 15:20) chest pain meperidine (From Demerol) Adverse Reaction (Verified 07/20/25 15:20) Vomiting Medication List - Last Reconciled 07/20/25 by Abby Cristina MD albuterol sulfate 90 mcg/actuation 2 puffs inhalation PRN aspirin (Adult Aspirin Regimen) 81 mg PO DAILY cholecalciferol (vitamin D3) 50 mcg PO DAILY hydroxychloroquine 200 mg PO DAILY leflunomide 20 mg PO DAILY lisinopril mg PO omeprazole 20 mg PO DAILY triamcinolone acetonide 0.5% appl topical valacyclovir 500 mg PO DAILY Do you need a note to return to daycare/school/sports/work: No HPI HPI wheezing: Details: This 69 years old female is here for the 1st time for pulmonary evaluation. Her main complaint is burning like sensation in the right pectoral area, sometimes radiating to the back. She does have occasional cough, but denies any wheezing. She has history of smoking in the remote past but quit back in 2016. . Prior to 2012 she and her were living in [place]. She used to have persistent and frequent acid reflux symptoms. She had a surgical procedure( Mari fundoplication ) and that has cut down her acid reflux into minimal. She has intermittent bouts of minimal aspiration of liquids into her lungs, and that is she gets bouts of cough and some burning sensation which she thinks may be due to aspiration. However she has had no definite pneumonia or infiltrates in the lung. The symptoms described by her as burning sensation in the right upper chest radiating to the back, are more nonspecific. She tells me that she has had full cardiac workup which was negative. She has had no pulmonary function test. She has been getting CT scan of the chest on a yearly basis for the past few years, the latest 1 was on 07/12/2024. The CT scan did not show any intrathoracic abnormality. She has stable 2 mm nodule in the subpleural region of the left lower lobe. A few additional 1-2 mm nodules scattered throughout the lungs and a mild degree of emphysema. She does have longstanding history of rheumatoid arthritis, fibromyalgia, and also degenerative arthritis of the spine. [facility] Medical History (Updated 07/20/25 @ 15:40 by Abby Cristina MD) Shortness of breath Pulmonary nodules Chest pain History of fibromyalgia History of rheumatoid arthritis Osteoporosis Osteopoikilosis Surgical History Hx of tubal ligation Hx of cholecystectomy Hx of partial mastectomy Hx of hernia repair Family History Father Diabetes Heart disease Mother Stroke Social History Alcohol intake: current Alcohol intake frequency: holidays/special occasions only Alcohol type: wine Patient Tobacco Use Status: Never used Tobacco Current occupational status: employed Current occupation: [email or web address] Review of Systems Const All systems reviewed & are unremarkable except as noted in HPI and below Eyes Reports no additional complaints ENT Reports no additional complaints Card Reports chest pain (Chest discomfort mostly in the right upper chest, atypical, ) Resp Reports as per HPI GI Reports heartburn (History of frequent GERD, improved since she had fundoplication procedure i) Reports no additional complaints Musc Reports back pain Skin/Breast Reports system reviewed and no additional complaints, except as documented Neuro Reports no additional complaints Psych Reports no additional complaints Endo Reports no additional complaints Siddharth/Lymph Reports no additional complaints Aller/Immun Reports no additional complaints Physical Exam Vital Signs: Last Vital Signs Pulse 75 07/20/25 14:21 BP 140/70 H 07/20/25 14:21 Pulse Ox 98 07/20/25 14:21 Oxygen Delivery Method Room Air 07/20/25 14:21 BMI result Body Mass Index 24.2 Const General: healthy appearing, comfortable, no acute distress, alert and awake Orientation/consciousness: patient oriented x3 HEENT Head: Yes normal to inspection General nose exam: No nasal polyps present and No nasal discharge present Face and sinus: Yes sinuses nontender Mouth: oropharynx normal Teeth and gingiva: dentures Throat: Yes posterior oropharynx normal Eyes General: appearance normal, both eyes and all related structures Neck Neck: Yes normal visual inspection, Yes no lymphadenopathy, Yes trachea midline and Yes no JVD Thyroid: Thyroid normal Chest Chest palpation & inspection: normal inspection of the chest, normal palpation of entire chest wall and no tenderness Resp Effort & Inspection: normal respiratory effort Auscultation: clear to auscultation bilaterally, no crackles, no rhonchi and no wheezes Cardio Palpation: normal PMI Rate: regular rate Rhythm: regular rhythm Heart sounds: no gallops and no murmurs Peripheral pulses: Peripheral pulses 2+ throughout GI Palpation (GI): Soft to palpation, nontender, No hepatosplenomegaly present and Palpable mass present Auscultation: normal bowel sounds Back/Spine/Pelvis Thoracic/Lumbar Spine: thoracic and lumbar spine normal to inspection and thoraco-lumbar ROM limited Skin General skin exam: no rashes or lesions noted Neuro General: patient oriented x3 and no focal motor deficits Cranial nerves: Yes CN's II-XII intact bilaterally Extrem General: Yes normal to inspection, Yes no clubbing, cyanosis or edema and Yes no calf tenderness Psych Appearance: grossly normal and well kempt Speech and movement: Normal speech and movement present Results Reviewed Results Reviewed: CT scan of the chest without contrast performed at [facility]. No acute intrathoracic process noted. Stable 2 mm nodule in the subpleural. Region of left lower lobe A few scattered 1-2 mm nodules seen but unchanged from before Assessment & Plan Assessment & Plan (1) Chest pain: Comment: She has chronic nonspecific discomfort/burning in the right pectoral area sometimes radiating to the back. I think this is related to musculoskeletal system, may be associated with her chronic fibromyalgia/room at tied arthritis. I told her that this does not seem to be related to any lung problem, and as long as she has had negative cardiology workup it could not be related to the heart also. Code(s): R07.9 - Chest pain, unspecified Category: Medical Plan: Just to satisfy her I reviewed the report of CT scans and explained to her that there was no significant abnormality in the lungs. Will do pulmonary function test just to make sure that she does not have any degree of COPD. She feels reassured with the explanation I gave her for the discomfort in the chest. (2) Pulmonary nodules: Comment: The pulmonary nodules are very small in size 1-2 mm, benign, . Code(s): R91.8 - Other nonspecific abnormal finding of lung field Category: Medical Plan: She quit smoking in 2012 and now she is a relatively low risk patient. I do not think we need do the CT scan on a yearly basis (3) Shortness of breath: Comment: She has mild shortness of breath on climbing stairs or walking fast. Code(s): R06.02 - Shortness of breath Category: Medical Plan: Pulmonary function test to check for any obstructive or restrictive disorder. In the meantime she will keep albuterol on hand and use 2 puffs Q 4-6 hours only p.r.n. if she has any wheezing Coding Level of Care Code New Pt Level 4 (20906) Diagnoses Chest pain R07.9 Pulmonary nodules R91.8 Shortness of breath R06.02
[2025-07-20 14:21] VITALS: BP 140/70; PULSE 75; O2SAT 98; BMI 24.2
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
== END 2025-07-20 14:56 | disposition home or self-care (01) ==
LOC: HO.HPS 14:04
PROVIDERS: PCP Internal Medicine; Visit Provider Internal Medicine
DX: R07.9 Chest pain, unspecified (principal); R91.8 Other nonspecific abnormal finding of lung field; R06.02 Shortness of breath
CPT/HCPCS: 99204

== ENCOUNTER → 2025-07-20 14:03 | Outpatient (BNVA) | payer MEDICARE, SELFPAY | PROVIDERS: PCP Internal Medicine; Visit Provider Internal Medicine | DX: R07.9 Chest pain, unspecified (principal); R06.02 Shortness of breath; R91.8 Other nonspecific abnormal finding of lung field | CPT/HCPCS: 99202 ==

== ENCOUNTER 2025-09-09 10:53 | Outpatient (REF) | payer MEDICARE, SELFPAY ==
--- OUTSIDE RECORDS SUMMARY | 2025-09-09 14:46 | XMS_ITS | Clinical Summary ---
Author Organization [facility] Address [address] [facility] [address] [place] [address] Phone Care Team Providers Care Multicut Line Operator Name Role Phone Yfn Palmer MD Primary [...] tablet 1 tablet as needed. Active lisinopril (PRINIVIL,ZESTR IL) 5 MG tablet Take 5 mg by mouth daily. 2 Active NINA'S WORT ORAL Take by mouth 2 (two) times a day. Active acetaminophen (TYLENOL) 500 MG tablet Take 2 tablets by mouth as needed. Active ibuprofen (ADVIL,MOTRIN) 200 MG tablet Take 2 tablets by mouth as needed. Active cholecalciferol , vitD3,/vit K2 (VITAMIN D3-VITAMIN K2 ORAL) Take by mouth. Activ e fluorometholone (FML LIQUIFILM) 0.1 % ophthalmic suspension 3 Active hyoscyamine sulfate (HYOSYNE ORAL) Take by mouth. Active magnesium carbonate 54 mg/5 mL Liqd Take by mouth daily before breakfast. Active omega-3 fatty acids-fish oil 340-1,000 mg Cap Take by mouth daily. Active QUERCETIN ORAL Take by mouth. Active LYSINE ORAL Take by mouth daily. Active valACYclovir (VALTREX) 500 MG tablet 500 mg. 5 Active omeprazole (PRILOSEC) 20 MG capsule 5 Active leflunomide (ARAVA) 20 MG tabletIndicatio ns:Rheumatoid arthritis involving multiple sites with positive rheumatoid factor Take 1 tablet (20 mg total) by mouth daily. 90 tablet 1 5 Active methylPREDNISol one (MEDROL DOSEPACK) 4 mg tablet As needed for flares, follow packet directions 21 tablet 2 5 Active hydroxychloroqu ine (PLAQUENIL) 200 mg tablet TAKE 1 TABLET(200 MG) BY MOUTH DAILY 30 tablet 2 5 Active Active Problems Problem Noted Date Diagnosed Date [...] Type Department Care Team Description 07/09/2025 Refill [facility] Rheumatology [address] [place] [address] [place] [address] Rosetta Seo MD Medication Refill 06/10/2025 1:45 PM EDT - 06/10/2025 11:59 PM EDT Hospital Encounter [facility] [address] [place] [address] [place] [address] Rosetta Seo MD Discharge Disposition: Home or Self Care 06/10/2025 1:30 PM EDT Office Visit [facility] Rheumatology [address] [place] [address] [place] [address] Rosetta Seo MD Rheumatoid arthritis involving multiple sites with positive rheumatoid factor (Primary Dx); Primary osteoarthritis involving multiple joints; Fibromyalgia; High risk medications (not anticoagulants) long-term use; Immunosuppression due to drug therapy 06/10/2025 Telephone [facility]umatology [address] [place] [address] [place] [address] Rosetta Seo MD Appointment from Last 3 Months Family History Medical [...] 03/11/2025 2:13 PM EDT Plan of Treatment Upcoming Encounters Date Type Department Care Team (Late st Contact Info) Description 09/20/2025 4:00 PM EDT Office Visit [facility] Rheumatology [address] [place] [address] Yenny Dawkins DO [address] [facility], [address] [place] [address] Health Maintenance Due Date Last Done Comments [...] COLONOSCOPY 2000 RSV VACCINE (1 - Risk 50-74 years 1-dose series) 2005 OSTEOPOROSIS SCREENING INITIAL (ONE-TIME) 2020 ZOSTER VACCINES [...] EDT) SODIUM 138 133 - 146 mmol/L [facility] POTASSIUM 4.6 3.3 - 5.1 mmol/L [facility] CHLORIDE 103 96 - 108 mmol/L [facility] CO2 26 21 - 35 mmol/L [facility] BUN 9 6 - 19 mg/dL [facility] CREATININE 0.80 0.5 - 1.5 mg/dL [facility] GLUCOSE 101(H) 70 - 99 mg/dL [facility] ALBUMIN 4.3 3.9 - 4.8 g/dL [facility] TOTAL PROTEIN 6.8 6.5 - 8.0 g/dL [facility] CALCIUM 9.6 8.4 - 10.3 mg/dL [facility] ALKALINE PHOSPHATASE 83 39 - 117 U/L [facility] TOTAL BILIRUBIN 0.5 0.0 - 1.2 mg/dL [facility] AST 29 0 - 37 U/L [facility] ALT 18 0 - 40 U/L [facility] GLOBULIN 2.5 1 - 4.8 g/dL [facility] EGFR 80 >59 mL/min/1.7 3m2 [facility] Comment:Estimated glomerular filtration rate calculated using the CKD-EPI refit equation. ANION GAP 14 10 - 20 mmol/L [facility] Blood 06/10/2025 1:46 PM EDT 06/10/2025 1:51 PM EDT us Rosetta Seo MD LAB BLOOD ORDERABLES Final Res ult [facility] [address] [place] [address] * Sedimentation rate (ESR) (06/10/2025 1:46 PM EDT) ESR 5 0 - 30 mm/h [facility] Blood 06/10/2025 1:46 PM EDT 06/10/2025 1:51 PM EDT Rosetta Seo MD LAB BLOOD ORDERABLES Final Res ult Performing Organization Address [facility] Co de Phone Number [address] [address] * (ABNORMAL) CBC (06/10/2025 1:46 PM EDT) WBC 4.25 4.00 - 11.00 K/uL [facility] RBC 3.83(L) 4.00 - 5.20 M/uL [facility] HGB 12.5 12.0 - 16.0 g/dL [facility] HCT 38.1 36.0 - 46.0 % [facility] PLT 201 150 - 450 K/uL [facility] MCV 99.5 80.0 - 100.0 fL [facility] MCH 32.6(H) 27.0 - 31.0 pg [facility] MCHC 32.8 32.0 - 36.0 g/dL [facility] RDW 12.6 11.5 - 14.5 % [facility] MPV 12.6(H) 8.4 - 12.0 fL [facility] NRBC 0.00 0.00 /100 WBCs [facility] ABSOLUTE NRBC 0.00 0.00 K/uL [facility] Blood 06/10/2025 1:46 PM EDT 06/10/2025 1:51 PM EDT Rosetta Seo MD LAB BLOOD ORDERABLES Final Res ult Performing Organization Address City/[facility]/ZIP Co de Phone Number [address] [address] * C-Reactive Protein (06/10/2025 1:46 PM EDT) C REACTIVE PROTEIN <3.0 0.0 - 4.0 mg/L [facility] Blood 06/10/2025 1:46 PM EDT 06/10/2025 1:51 PM EDT Rosetta Seo MD LAB BLOOD ORDERABLES Final Res ult [facility] [address] [place], [place] [phone] from Last 3 Months Insurance MEDICARE PART A & B MEDICARE REPLACEMENT MEDICARE PART A & B [facility] MEDICARE REPLACEMENT MEDICARE PART A & B MEDICARE PART A & B MEDICARE PART A & B [employer] P[employer] MEDICARE REPLACEMENT MEDICARE PART A & B MEDICARE PART A & B [facility] MEDICARE REPLACEMENT MEDICARE PART A & B MEDICARE REPLACEMENT MEDICARE PART A & B [employer] PPO MEDICARE REPLACEMENT Care Teams Multicut Line Operator Relationship Specialty Start Date End Date Yfn Palmer MD [address] [place] [address] Dr [place] [address] PCP - General Internal Medicine 07/22/22 Additional Source Comments The information contained in this document represents components of the legal health record. It is not the complete legal health record.[facility]
[2025-09-09 18:07] LABS: MANUAL DIFF FLAG NO
[2025-09-09 18:38] LABS: Hematocrit 37.4 % (37.0-47.0); Hemoglobin 11.9 g/dl (12.0-16.0); Imm Gran Abs Auto 0.01 X10*3/uL (0.00-0.03); Imm Gran Pct Auto 0.3 % (0.0-0.4); Lymphocytes Absolute Auto 1.5 X10*3/uL (1.2-4.9); Mean Corpuscular HGB Conc 31.8 g/dl (31.0-35.0); Mean Corpuscular Hemoglobin 33.4 pg (27.0-33.0); Mean Corpuscular Volume 105.1 fL (80.0-98.0); NRBC Abs Auto 0.000 X10*3/uL (0.0-0.012); NRBC Pct Auto 0.0 /100WBC (0.0-0.2); Platelet Count 226 X10*3/uL (160-400); Red Blood Count 3.56 X10*6/uL (4.20-5.50); White Blood Count 3.6 X10*3/uL (4.8-10.8)
[2025-09-09 18:41] LABS: Alanine Aminotransferase 21 U/L (0-31); Albumin Level 4.3 g/dL (3.5-5.0); Alkaline Phosphatase 80 U/L (39-117); Anion Gap 14 (12-20); Aspartate Amino Transferase 26 U/L (5-31); Blood Urea Nitrogen 9 mg/dL (9-16); Calcium 9.1 mg/dL (8.4-10.2); Carbon Dioxide 22 mmol/L (22-29); Chloride 107 mmol/L (96-108); Estimated Glomerular Filt Rate > 60; Potassium 3.7 mmol/L (3.3-5.1); Sodium 139 mmol/L (135-145); Total Protein 6.8 g/dL (6.5-8.0)
== END 2025-09-09 10:54 | disposition home or self-care (01) ==
LOC: HO.HKASLDS 10:53
PROVIDERS: PCP Internal Medicine; Visit Provider Student in an Organized Health Care Education/Training Program
DX: Z51.81 Encounter for therapeutic drug level monitoring (principal); M05.79 Rheumatoid arthritis with rheumatoid factor of multiple sites without organ or systems involvement; M81.0 Age-related osteoporosis without current pathological fracture; M79.7 Fibromyalgia; E55.9 Vitamin D deficiency, unspecified; Z79.631 Long term (current) use of antimetabolite agent; Z79.899 Other long term (current) drug therapy
CPT/HCPCS: 36415; 80053; 82306; 85025; 85652; 86140; 86200; 86431; 99202

== ENCOUNTER 2025-09-09 10:53 | Outpatient (AMB) | payer MEDICARE, SELFPAY ==
--- OUTSIDE RECORDS SUMMARY | 2024-08-13 10:08 | XMS_ITS ---
Author Organization Yfn Palmer MD Address [address] [place] [phone] Care Team Providers Care Weight Clerk Name Role Phone Yfn Palmer Primary Care Provider REASON FOR VISIT CT Chest due Encounters Encounter Location Date Provider Diagnosis Yfn Palmer MD [address] [facility] [address] [place] [phone] 08/13/2024 Yfn Palmer Lung nodule < 6cm [...] Details Provider Name:Yfn taylor, 11/21/2025 08:00:00 AM, [address] [place] [address], [address], [phone], Provider Name:Yfn taylor, 11/28/2025 02:00:00 PM, [address] [place] [address], [address], [phone], Provider Name:Yfn taylor, 05/11/2026 07:15:00 AM, [address], [address], [place], [phone], Provider Name:Yfn taylor, 05/19/2026 02:30:00 PM, [address], [address], [place], [phone], Progress Notes * Brie CATALANOB:1955 (68 yo F)Acc No.[id number]:08/13/2024 Patient: Rabia TALAMANTES :1955 A ge:68 Y S ex:Female Address:[place], [address] Subjective: * Chief Complaints: * C T Chest due * Medical History: * Surgical History: * Hospitalization/Major Diagno stic Procedure: * Medications: Objective: Assessment: * Assessment: 1. L shyam nodule < 6cm on CT - R91.1 Plan: * Treatment: Notes: Order made and put into the future order folder for ?? * Procedure Codes: * true * Date: Generated for Freddy nieves/Jaison/eTransmitting on: 01:30 PM EDT
--- OUTSIDE RECORDS SUMMARY | 2024-08-16 10:00 | XMS_ITS ---
Author Organization Yfn Palmer MD Address [address] [place], [place] [phone] Care Team Providers Care Welt Wheeler Name Role Phone Yfn Palmer Primary Care Provider [phone] Allergies Allergen (clinical drug ingredient) Drug/Non Drug [...] Location Date Provider Diagnosis Yfn Palmer MD [address] [place] [address] [place] [phone] 08/16/2024 Yfn Palmer Lung nodules R91.8 and [...] Details Provider Name:Yfn taylor, 11/21/2025 08:00:00 AM, [address] [place] [address], [address], [phone], Provider Name:Yfn taylor, 11/28/2025 02:00:00 PM, [address] [place] [address], [address], [phone], Provider Name:Yfn taylor, 05/11/2026 07:15:00 AM, [address] [place] [address], [phone], Provider Name:Yfn taylor, 05/19/2026 02:30:00 PM, [address] [place] [address], [address], [place], [phone], Progress Notes * Aixa CATALANneDOB:1955 (68 yo F)Acc No.[id number]:08/16/2024 Progress Notes Patient: Rabia TALAMANTES Provider: Joey Palmer MD :1955 A ge:68 Y S ex:Female Date:08/16/2024 [facility] [facility] Subjective: * Chief Complaints: * 2 month [...] MD Date: 0 08/16/2024 Generated for Freddy nieves/Jaison/Libradosmitting on: 1 01:28 PM EDT History and Physical Notes * HPI (History [...]
--- OUTSIDE RECORDS SUMMARY | 2024-10-18 04:00 | XMS_ITS ---
Author Organization Yfn Palmer MD Address [address] [place], [place] [id number] Care Team Providers Care Ceramic Sprayer Name Role Phone Yfn Palmer Primary Care Provider Results Component Value Reference Range Notes Complete Blood Count Auto Di ff Reviewed date:10/18/2024 05:30:42 PM Interpretation: Performing Lab:[facility], [address] [place] [phone] Notes/Report: White Blood Count 4.1 4.8-10.8 X10*3/uL [...] Date Provider Diagnosis Yfn Palmer MD [address] [place], [place] [phone] 10/18/2024 Yfn Palmer Lung nodules R91.8 Assessments Encounter Date Diagnosis (ICD Code) Assessment Notes Treatment Notes Treatment Clinical Notes Section Notes 10/18/2024 Lung nodules (ICD-10 - R91.8) Plan Of Treatment Next Appt Details Provider Name:Yfn taylor, 11/21/2025 08:00:00 AM, [address] [place] [address] Drive, [address], [place], [place], [phone], Provider Name:Yfn Jordan ier, 11/28/2025 02:00:00 PM, [address], [address], [place], [phone], Provider Name:Yfn Jordan ier, 05/11/2026 07:15:00 AM, [address] [facility], [address], [place], [phone], Provider Name:Yfn Jordan ier, 05/19/2026 02:30:00 PM, [address] [facility], [address], [place], [phone], Progress Notes * Aixa CATALANKiaraOB:1955 (69 yo F)Acc No.[id number]:10/18/2024 Progress Note Patient: Rabia TALAMANTES Provider: Joey Palmer MD :1955 A ge:68 Y S ex:Female Date:10/18/2024 Address:[address] [facility] Subjective: * Chief Complaints: * 1 . [...] Pending * Provider: Joey Palmer MD Date: 1 12/18/2023 Generated for Freddy nieves/Jaison/Jeannette on: 01:28 PM EDT
--- OUTSIDE RECORDS SUMMARY | 2025-04-04 05:24 | XMS_ITS ---
Author Organization Yfn Palmer MD Address [address] [place] [address] [place] [phone] Care Team Providers Care Fire Alarm Repairer Name Role Phone Yfn Palmer Primary Care Provider REASON FOR VISIT ER visit rec'd Encounters Encounter Location Date Provider Diagnosis Yfn Palmer MD [address] [place] [address] [address] [place] [phone] 04/04/2025 Yfn Palmer Plan Of Treatment Next Appt Details Provider Name:Yfn taylor, 11/21/2025 08:00:00 AM, [address] [place] [address], [address], [phone], Provider Name:Yfn taylor, 11/28/2025 02:00:00 PM, [address] [place] [address], [address], [phone], Provider Name:Yfn Jordan ier, 05/11/2026 07:15:00 AM, [address] [place] [address], [phone], Provider Name:Yfn taylor, 05/19/2026 02:30:00 PM, [address] [place] [address], [address], [phone], Progress Notes * Brie CATALANOB:1955 (69 yo F)Acc No.[id number]:04/04/2025 Patient: Rabia TALAMANTES :1955 A ge:69 Y S ex:Female Address:[place], [address] * true * Date: Generated for Freddy nieves/Jaison/eTransmitting on: 01:29 PM EDT
--- OUTSIDE RECORDS SUMMARY | 2025-04-07 09:00 | XMS_ITS ---
Author Organization Yfn Palmer MD Address [address] [place], [place] [phone] Care Team Providers Care Splitter Tender Name Role Phone Yfn Palmer Primary Care Provider [phone] Allergies Allergen (clinical drug ingredient) Drug/Non Drug [...] Date Provider Diagnosis Yfn Palmer MD [address] [place], [place] [phone] 04/07/2025 Yfn Palmer Chest pain R07.9 Assessments Encounter Date Diagnosis (ICD Code) Assessment Notes Treatment Notes Treatment Clinical Notes Section Notes 04/07/2025 Chest pain (ICD-10 - R07.9) need last note from [facility] cardiology/ has been evaluated in [...] Notes Chest pain need [facility] cardi[facility]/ has been evaluated in [...] 08:00:00 AM, [address], [address], [place], [place], [phone], Provider Name:Yfn Jordan ier, 11/28/2025 02:00:00 PM, [address], [address], [place], [phone], Provider Name:Yfn Jordan ier, 05/11/2026 07:15:00 AM, [address], [address], [place], [phone], Provider Name:Yfn Jordan ier, 05/19/2026 02:30:00 PM, [address], [address], [place], [phone], Progress Notes * Aixa CATALANKiaraOB:1955 (69 yo F)Acc No.[id number]:04/07/2025 Progress Notes Patient: Rabia TALAMANTES Provider: Joey Palmer MD :1955 A ge:69 Y S ex:Female Date:04/07/2025 Address:[address] [place], [place] Subjective: * Chief Complaints: * p ost [...] 04/07/2025 Generated for Freddy nieves/Jaison/eTransmitting on: 1 01:30 PM EDT History and Physical Notes * [...]
--- OUTSIDE RECORDS SUMMARY | 2025-04-07 10:11 | XMS_ITS ---
Author Organization Yfn Palmer MD Address [address] [place] [address] [place] [phone] Care Team Providers Care It Security Analyst Name Role Phone Yfn Palmer Primary Care Provider REASON FOR VISIT medication isue Encounters Encounter Location Date Provider Diagnosis Yfn Palmer MD [address] [place] [address] [place] [phone] 04/07/2025 Yfn Palmer Plan Of Treatment Next Appt Details Provider Name:Yfn taylor, 11/21/2025 08:00:00 AM, [address] [place] [address], [address], [phone], Provider Name:Yfn taylor, 11/28/2025 02:00:00 PM, [address] [place] [address], [address], [phone], Provider Name:Yfn taylor, 05/11/2026 07:15:00 AM, [address] [place] [address], [address], [phone], Provider Name:Yfn taylor, 05/19/2026 02:30:00 PM, [address] [place] [address], [address], [phone], Progress Notes * Brie CATALANOB:1955 (69 yo F)Acc No.[id number]:04/07/2025 Patient: Rabia TALAMANTES :1955 A ge:69 Y S ex:Female Address:[place], [address] * true * Date: Generated for Freddy nieves/Jaison/eTransmitting on: 01:29 PM EDT
--- OUTSIDE RECORDS SUMMARY | 2025-05-05 06:00 | XMS_ITS ---
Author Organization Yfn Palmer MD Address [address] [place] [phone] Care Team Providers Care Rn Access Name Role Phone Yfn Palmer Primary Care Provider Results Component Value Reference Range Notes UA ClnCatch+Micro w/rflx Cul t Reviewed date:05/05/2025 05:26:19 PM Interpretation: Performing Lab:[facility], [address] [place] [phone] Notes/Report: Urine, Clean Catch Color Urine Yellow Appearance Urine Clear PH 5.5 5.0-9.0 Glucose Urine UA Negative Negative mg/dL Urine Blood Negative Negative Specific [place] - Urine 1.015 1.005-1.025 Urine Protein Negative [...] Yfn Palmer MD [address] [place] [phone] 05/05/2025 Yfn Palmer UTI (urinary tract infection) N39.0 Assessments Encounter Date Diagnosis (ICD Code) Assessment Notes Treatment Notes Treatment Clinical Notes Section Notes 05/05/2025 UTI (urinary tract infection) (ICD-10 - N39.0) Plan Of Treatment Next Appt Details Provider Name:Yfn Jordan ier, 11/21/2025 08:00:00 AM, [address], Suite [facility], [place], [phone], Provider Name:Yfn Jordan ier, 11/28/2025 02:00:00 PM, [address] [place] [address], Suite [facility], [place], [phone], Provider Name:Yfn Jordan ier, 05/11/2026 07:15:00 AM, [address], Suite [facility], [place], [phone], Provider Name:Yfn Jordan ier, 05/19/2026 02:30:00 PM, [address] [place] [address], Suite [facility], [place], [phone], Progress Notes * ALAYNABrieOB:1955 (69 yo F)Acc No.[id number]:05/05/2025 Progress Note Patient: Rabia TALAMANTES Provider: Joey Palmer MD :1955 A ge:69 Y S ex:Female Date:05/05/2025 Address:[address] [facility] Subjective: * Chief Complaints: * 1 . [...] 0 05/05/2025 Generated for Freddy nieves/Jaison/Pabloitting on: 01:29 PM EDT
--- OUTSIDE RECORDS SUMMARY | 2025-05-09 03:00 | XMS_ITS ---
Author Organization Yfn Palmer MD Address [address] [place], [place] [phone] Care Team Providers Care Tag Clerk Name Role Phone Yfn Palmer Primary Care Provider Results Component Value Reference Range Notes Complete Blood Count Auto Di ff Reviewed date:05/10/2025 05:05:27 PM Interpretation: Performing Lab:[facility], [address] [place] [phone] Notes/Report: White Blood Count 3.6 4.8-10.8 X10*3/uL [...] NRBC Abs Auto 0.000 0.0-0.012 X10*3/uL Comprehensive [place]. Panel Fa st Reviewed date:05/09/2025 12:44:57 PM Interpretation: Performing Lab:[address] [phone] Notes/Report: Sodium 141 135-145 mmol/L Potassium 4.0 [...] Panel Reviewed date:05/09/2025 12:06:05 PM Interpretation: Performing Lab:[facility], [address] [place] [phone] Notes/Report: Triglycerides 105 <150 mg/dL Desirable Triglyceride: [...] Location Date Provider Diagnosis Yfn Palmer MD [address] [place] [address] [place] [phone] 05/09/2025 Yfn Palmer Blood tests for rout [...] Details Provider Name:Yfn taylor, 11/21/2025 08:00:00 AM, [address] [place] [address], Suite [facility], [place], [place], [phone], Provider Name:Yfn taylro, 11/28/2025 02:00:00 PM, [address] [place] [address], [place] [address], [place], [place], [phone], Provider Name:Yfn taylor, 05/11/2026 07:15:00 AM, [address] [place] [address], [place] [address], [place], [place], [phone], Provider Name:Yfn taylor, 05/19/2026 02:30:00 PM, [address], [address], [place], [place], [phone], Progress Notes * Brie CATALANOB:1955 (69 yo F)Acc No.[id number]:05/09/2025 Progress Note Patient: Rabia TALAMANTES Provider: Joey Palmer MD :1955 A ge:69 Y S ex:Female Date:05/09/2025 Address:[address] [facility] Subjective: * Chief Complaints: * 1 . [...] - 05/09/2025 07:00 AM) L AB: Comprehensive [place]. Panel Fast (Collection Date & Time - 05/09/2025 07:00 AM) L AB: Lipid Panel (Collection Date & Time - 05/09/2025 07:00 AM) 3. N eutropenia, unspecified type L AB: UA ClnCatch+Micro w/rflx Cult L AB: Complete Blood Count Auto Diff (Collection Date & Time - 05/09/2025 07:00 AM) L AB: Comprehensive [place]. Panel Fast (Collection Date & Time - [...] 05/09/2025 Generated for Freddy nieves/Jaison/eTransmitting on: 1 01:30 PM EDT
--- OUTSIDE RECORDS SUMMARY | 2025-05-16 06:30 | XMS_ITS ---
Author Organization Yfn Palmer MD Address [address] [place], [place] [id number] Care Team Providers Care Brick Or Block Maker Name Role Phone Yfn Palmer Primary Care Provider [phone] Allergies Allergen (clinical drug ingredient) Drug/Non Drug [...] Provider DENISE STEVENSON Referred Provider Specialty Pulmonary [facility] General Notes Cait Galan 0 05/16/2025 11:04:28 [...] Status Risk Notes Problem Genital herpes simplex (86325613) Herpesviral infection of urogenital system, 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 confirmed Vital Signs Blood pressure systolic 128 mm Hg 05/16/20 25 Blood pressure diastolic 52 mm Hg 025 Height 62.5 in 05/16/2025 Weight 138 lbs 05/16/2025 BMI 24.84 kg/m2 05/16/2025 weight is up 1 pound since Encounters Encounter Location Date Provider Diagnosis Yfn Palmer MD [address] [place], [place] [phone] 05/16/2025 Yfn Palmer Wheezing R06.2 ; David [...] Name:Yfn Jordan ier, 11/21/2025 08:00:00 AM, [address] [facility], [address] [facility], [place], [place], [phone], Provider Name:Yfn Jordan claudia, 11/28/2025 02:00:00 PM, [address] [place] [address], [address] [facility], [place], [place], [phone], Provider Name:Yfn Jordan ier, 05/11/2026 07:15:00 AM, [address] [place] [address], [address] [facility], [place], [place], [phone], Provider Name:Yfn Jordan ier, 05/19/2026 02:30:00 PM, [address] [place] [address], [address] [facility], [place], [phone], Progress Notes * Aixa CATALANneDOB:1955 (69 yo F)Acc No.[id number]:05/16/2025 Progress Notes Patient: Rabia TALAMANTES Provider: Joey Palmer MD :1955 A ge:69 Y S ex:Female Date:05/16/2025 [facility] Subjective: * Chief Complaints: * A NNUAL [...] she presses on it. 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 * ROS: G eneral/Constitutional: Change in appetite [...] 04-07-25. * P ast Orders: L ab:Comprehensive [place]. Panel Fast (Order Date - 05/09/2025) (Collection [...] mg/dL Urine Blood Negative Negative - Specific [place] - Urine 1.015 1.005-1.025 - Urine Protein [...] 05/16/2025 Generated for Freddy nieves/Jaison/eTransmitting on: 1 01:29 PM EDT History and Physical Notes * HPI (History of Present Illness) Category Sub-Category Detail Notes Category Not es Symptom(s) patient is a 69 yo female here for annual visit with review of recent labs and follow up of chronic issues. still has the pain in her rt chest all the time. feels it when she presses on it. 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
--- OUTSIDE RECORDS SUMMARY | 2025-06-14 11:11 | XMS_ITS ---
Author Organization Yfn Palmer MD Address 10 [facility] [address] [place] [phone] Care Team Providers Care Counselor [employer] Name Role Phone Yfn Palmer Primary Care Provider [phone] REASON FOR VISIT Chest CT Scan is due Encounters Encounter Location Date Provider Diagnosis Yfn Palmer MD [address] [place] [address] [place] [phone] 06/14/2025 Yfn Palmer Plan Of Treatment Next Appt Details Provider Name:Yfn taylor, 11/21/2025 08:00:00 AM, [address] [place] [address], [address], [phone], Provider Name:Yfn taylor, 11/28/2025 02:00:00 PM, [address] [place] [address], [address], [phone], Provider Name:Yfn taylor, 05/11/2026 07:15:00 AM, [address] [place] [address], [address], [phone], Provider Name:Yfn taylor, 05/19/2026 02:30:00 PM, [address] [place] [address], [address], [phone], Progress Notes * Brie CATALANOB:1955 (69 yo F)Acc No.[id number]:06/14/2025 Patient: Rabia TALAMANTES :1955 A ge:69 Y S ex:Female Address:[place], [address] * true * Date: Generated for Freddy nieves/Jaison/eTransmitting on: 01:28 PM EDT
--- NOTE | 2025-09-09 11:01 | A.OFFVIS_ITS ---
Vital Signs 09/09/25 11:11 Height 5 ft 2 in Weight 131 lb 13.383 oz BMI 24.1 BP 124/80 Blood Pressure Location Lt brachial Position Sitting Pulse 74 Pulse Source Pulse Oximeter Pulse Oximetry (%) 98 Oxygen Delivery Method Room Air Intake Visit Reasons: osteoarthritis Intake Note: New patient presents for Osteoarthritis. Allergies celecoxib (From CELEBREX) Allergy (Unknown, Verified 09/09/25 11:09) CP epinephrine (EPINEPHRINE) Allergy (Unknown, Verified 09/09/25 11:09) HYPOTENSION galantamine (GALANTAMINE) Allergy (Unknown, Verified 09/09/25 11:09) NUMBNESS naproxen (From ALEVE) Allergy (Unknown, Verified 09/09/25 11:09) CP/NUMBNESS phenobarbital (PHENOBARBITAL) Allergy (Unknown, Verified 09/09/25 11:09) CP/NUMBNESS/TACHYCARDIA berberine Adverse Reaction (Severe, Verified 09/09/25 11:09) pain prednisone Adverse Reaction (Severe, Verified 09/09/25 11:09) chest pain meperidine (From Demerol) Adverse Reaction (Verified 09/09/25 11:09) Vomiting Medication List - Last Reconciled 09/09/25 by Lindy Roberts MD albuterol sulfate 90 mcg/actuation 2 puffs inhalation PRN aspirin (Adult Aspirin Regimen) 81 mg PO DAILY cholecalciferol (vitamin D3) 50 mcg PO DAILY hydroxychloroquine 200 mg PO DAILY leflunomide 20 mg PO DAILY lisinopril mg PO triamcinolone acetonide 0.5% appl topical valacyclovir 500 mg PO DAILY HPI Comments Details: Patient is a 69-year-old female with hx of ER positive breast cancer, hypertension complicated by coronary artery disease, asthma, osteoporosis, rheumatoid arthritis, polyarticular osteoarthritis here today to establish care Diagnosed with RA 2018 - 2019 Scheduled to see Rheumatology after routine blood work showed elevated RF Her initial visit was not concerning for RA but repeat blood work showed elevated RF and CCP and so she was started on DMARDs Also found to have pulmonary nodules which were presumed to be RA nodules (no biopsy done) Started on Leflunomide and then subsequently hydroxychloroquine was added With this combination she has been in remission Last rheumatology visit Also diagnosed with fibromyalgia - D-ribose is helpful - Quercetin also helpful Today, Doing well overall [facility] Medical History (Updated 09/09/25 @ 11:49 by Lindy Roberts MD) Rheumatoid arthritis Shortness of breath Pulmonary nodules Chest pain History of fibromyalgia History of rheumatoid arthritis Osteoporosis Osteopoikilosis Surgical History Hx of tubal ligation Hx of cholecystectomy Hx of partial mastectomy Hx of hernia repair Family History Father Diabetes Heart disease Mother Stroke Social History Alcohol intake: current Alcohol intake frequency: holidays/special occasions only Alcohol type: wine Patient Tobacco Use Status: Never used Tobacco Current occupational status: employed Current occupation: [employer] Review of Systems Const Details: Review of Systems Constitutional: Denies fever, chills, weight loss ENT: Denies vision changes, eye pain or eye redness, dental caries, dry mouth GI: Denies nausea, vomiting, diarrhea, abdominal pain, change in BM Pulm: Denies SOB, OVIEDO, hemoptysis, wheezing Cards: Denies chest pain, palpitations Skin: Denies Raynaud's, rash, nail changes, photosensitivity, MEDICAL WRITER: Denies headaches, weakness, paresthesias, recurrent falls MSK: as per HPI All other systems reviewed and are unremarkable except noted above Physical Exam Exam Exam: Vital signs reviewed Physical Examination CONSTITUITIONAL Patient alert and cooperative. Well appearing and in no apparent painful distress MSK Hands * Right Hand: Able to make a fist. No swelling or tenderness to palpation of the MCPs, PIPs or DIPs. * Left Hand: Able to make a fist. No swelling or tenderness to palpation of the MCPs, PIPs or DIPs. * Herbedens nodes noted bilaterally Wrists * Right Wrist: Full ROM to flexion and extension. No swelling or TTP * Left Wrist: Full ROM to flexion and extension. No swelling or TTP Elbows * Right Elbow: Full ROM. No swelling or TTP. No TTP of the medial epicondyle. No TTP of the lateral epicondyle * Left Elbow: Full ROM. No swelling or TTP. No TTP of the medial epicondyle. No TTP of the lateral epicondyle Shoulders * Right shoulder: Full ROM. No swelling noted. No TTP of the AC joint. No TTP of the subacromial bursa. No TTP of the posterior shoulder * Left shoulder: Full ROM. No swelling noted. No TTP of the AC joint. No TTP of the subacromial bursa. No TTP of the posterior shoulder Knees * Right knee: Full ROM. No swelling noted. No TTP of the knee joint line. No TTP of pes anserine bursa * Left knee: Full ROM. No swelling noted. No TTP of the knee joint line. No TTP of pes anserine bursa. * Crepitations felt bilaterally Ankles * Right ankle: Good ankle dorsiflexion and plantar flexion. No swelling. No TTP of the ankle joint * Left ankle: Good ankle dorsiflexion and plantar flexion. No swelling. No TTP of the ankle joint Feet * Right foot: Negative squeeze test * Left foot: Negative squeeze test Tender points? * No tenderness to palpation of the bilateral trapezius, supraspinatus, anterior costochondral junctions, bilateral suboccipital muscle insertions SKIN No rashes Vital Signs: BMI result Body Mass Index 24.1 Results Reviewed Results Reviewed: Laboratory Tests 05/09/25 07:00 WBC 3.6 L RBC 3.78 L Hgb 12.2 Hct 37.5 Plt Count 182 Sodium 141 Potassium 4.0 Chloride 108 Carbon Dioxide 28 BUN 13 Creatinine 0.81 AST 22 ALT 14 Assessment & Plan Assessment & Plan (1) Rheumatoid arthritis: Comment: ++RF/CCP Dx 2019 Leflunomide 2019 - present Plaquenil added 06/2025 Code(s): M06.9 - Rheumatoid arthritis, unspecified Category: Medical Qualifiers: Rheumatoid arthritis location: multiple sites Rheumatoid factor presence: with rheumatoid factor Qualified Code(s): M05.79 - Rheumatoid arthritis with rheumatoid factor of multiple sites without organ or systems involvement Plan: #Rheumatoid Arthritis Patient is a 69 y.o. 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 Doing well on her regimen Plan - Leflunomide 20mg daily - Hydroxychloroquine 200mg - Labs today: CBC, CMP, ESR, CRP, Vitamin D - RTC 6 months - Labs before visit: CBC, CMP, ESR, CRP (2) Osteoporosis: Comment: DEXA 03/2022: AP spine -3.1, Left femur neck -2.5, Left femur total -2.1 Code(s): M81.0 - Age-related osteoporosis without current pathological fracture Category: Medical Qualifiers: Osteoporosis type: age-related Presence of current pathological fracture: without current pathological fracture Qualified Code(s): M81.0 - Age- related osteoporosis without current pathological fracture Plan: #Osteoporosis Not currently on treatment Will recheck bone density and make treatment decisions based on that Plan - DEXA scan - Continue vit D supplementation (3) Fibromyalgia: Code(s): M79.7 - Fibromyalgia Plan: #Fibromyalgia Stable Plan - Continue D-ribose and qercetin supplements (4) Encounter for monitoring leflunomide therapy: Code(s): Z51.81 - Encounter for therapeutic drug level monitoring; Z79.69 - swabber (current) use of other immunomodulators and immunosuppressants Plan: #Long-term leflunomide Discussed with patient the benefits and risks of leflunomide for managing the rheumatic condition Benefits include: - Reduced pain, maintenance of remission and reduction of flares Risks include: - GI upset especially diarrhea, skin rash, cytopenias, hepatotoxicity, weight loss, neuropathy Leflunomide is highly teratogenic. Has a very long half-life. Needs cholestyramine washout if there is desire for Initiation: CBC, BMP, LFTs, hepatitis-B and C serologies every 2-4 weeks for 3 months Monitoring: CBC, BMP, LFTs, hepatitis B and C serologies (5) Encounter for monitoring of hydroxychloroquine therapy: Code(s): Z51.81 - Encounter for therapeutic drug level monitoring; Z79.899 - Other penitentiary (current) drug therapy Plan: #Long-term Use of Hydroxychloroquine Discussed with patient the risks and benefits of hydroxychloroquine in managing the rheumatic condition Benefits include: - Reduced pain, reduce mortality, maintenance of remission and reduction of flares Risks include: - GI upset, skin hyperpigmentation, retinal toxicity (especially after more than 5 years of use), myopathy Advised yearly ophthalmology visits Plan I spent 45 minutes reviewing the record and labs, taking a history, examining the patient, discussing the treatment plan, ordering diagnostic work up and documenting in the medical record Orders: Orders XR DEXA axial skeleton Today M81.0 - Age-related osteoporosis without current pathological fracture Complete Blood Count Auto Diff Today M05.79 - Rheumatoid arthritis with rheumatoid factor of multiple sites without organ or systems involvement C Reactive Protein Today M05.79 - Rheumatoid arthritis with rheumatoid factor of multiple sites without organ or systems involvement Cyclic Citrullinated Peptide Today M05.79 - Rheumatoid arthritis with rheumatoid factor of multiple sites without organ or systems involvement Complete Blood Count Auto Diff 6 Months Z79.899 - Other beef pluck trimmer (current) drug therapy Comprehensive Met. Panel 6 Months Z79.899 - Other beef pluck trimmer (current) drug therapy C Reactive Protein 6 Months Z79.899 - Other beef pluck trimmer (current) drug therapy Comprehensive Met. Panel Today M05.79 - Rheumatoid arthritis with rheumatoid factor of multiple sites without organ or systems involvement Erythrocyte Sedimentation Rate Today M05.79 - Rheumatoid arthritis with rheumatoid factor of multiple sites without organ or systems involvement Rheumatoid Factor Today M05.79 - Rheumatoid arthritis with rheumatoid factor of multiple sites without organ or systems involvement Vitamin D 25-OH Total Today E55.9 - Vitamin D deficiency, unspecified Erythrocyte Sedimentation Rate 6 Months Z79.899 - Other beef pluck trimmer (current) drug therapy Medications: New leflunomide 20 mg PO DAILY 90 tabs 1RF M05.79 - Rheumatoid arthritis with rheumatoid factor of multiple sites without organ or systems involvement hydroxychloroquine 200 mg PO DAILY 90 tabs 1RF M05.79 - Rheumatoid arthritis with rheumatoid factor of multiple sites without organ or systems involvement Coding Level of Care Code New Pt Level 4 (91077) Complex EM visit Add On G2211 Diagnoses Rheumatoid arthritis involving multiple sites with positive rheumatoid factor M05.79 Rheumatoid arthritis location: multiple sites Rheumatoid factor presence: with rheumatoid factor Age-related osteoporosis without current pathological fracture M81.0 Osteoporosis type: age-related Presence of current pathological fracture: without current pathological fracture Fibromyalgia M79.7 Encounter for monitoring leflunomide therapy Z51.81; Z79.69 Encounter for monitoring of hydroxychloroquine therapy Z51.81; Z79.899
[2025-09-09 11:11] VITALS: BP 124/80; PULSE 74; O2SAT 98; BMI 24.1
--- OUTSIDE RECORDS SUMMARY | 2025-09-09 13:30 | XMS_ITS | Patient Health Record ---
Author Organization Yfn Palmer MD Address [address] [place], [place] [id number] Care Team Providers Care Grain Trader Name Role Phone Yfn Palmer Primary Care [...] t Reviewed date:05/05/2025 05:26:19 PM Interpretation: Performing Lab:[facility], [address] [place] [phone] Notes/Report: Urine, Clean Catch Color Urine Yellow Appearance Urine Clear PH 5.5 5.0-9.0 Glucose Urine UA Negative Negative mg/dL Urine Blood Negative Negative Specific [place] - Urine 1.015 1.005-1.025 Urine Protein Negative [...] date:05/10/2025 05:05:27 PM Interpretation: Performing Lab:[facility], [address] [place] [phone] Notes/Report: White Blood Count 3.6 4.8-10.8 X10*3/uL [...] NRBC Abs Auto 0.000 0.0-0.012 X10*3/uL Comprehensive [place]. Panel Fa st Reviewed date:05/09/2025 12:44:57 PM Interpretation: Performing Lab:[facility], [address] [place] [phone] Notes/Report: Sodium 141 135-145 mmol/L Potassium 4.0 [...] date:05/09/2025 12:06:05 PM Interpretation: Performing Lab:[facility], [address] [place] [phone] Notes/Report: Triglycerides 105 <150 mg/dL Desirable Triglyceride: [...] results in patients with liver disease. XR shoulder RT min 2V Reviewed date:01/31/2025 06:07:19 PM Interpretation: Performing Lab: Notes/Report: [facility] [address] [place] [address] XRay Report Signed Patient: Rabia Wagner MR#: [id number] : 1955 Acct:[id number] Age/Sex: 69 / F ADM Date: 01/28/25 Loc: HO.JUAN PABLOX Attending Dr: Marely Rojas MD Ordering Physician: Marely Pederson Date of Service: 01/28/25 Procedure(s): XR shoulder RT min 2V Accession Number(s): [id number] cc: Yfn Palmer MD; Marely Pederson EXAMINATION: [...] 01/31/25 1437 DD/ 1102 TD/TT: 01/28/25 1105 Mortgage Loan Counselor: [facility] [address] [place] [address] XRay Report Signed Patient: Jodi Wagner MR#: [id number] : 1955 Acct:[id number] Age/Sex: 69 / F ADM Date: 01/28/25 Loc: HO.JUAN PABLOX Attending Dr: Marely Rojas MD Ordering Physician: Marely Pederson Date of Service: 01/28/25 Procedure(s): XR shoulder RT min 2V Accession Number(s): [id number] cc: Yfn Palmer MD; Marely Pederson EXAMINATION: [...] joint osteoarthrosis. Electronically zackery d by: Elias Lee MD 01/31/2025 02:37 PM EDT Dictated By: Elias Lee MD Signed By: <Electronically signed by Elias Lee MD in OV> 01/31/25 1437 DD/ 1102 TD/TT: 01/28/25 1105 Mortgage Loan Counselor: Urine Culture Reviewed date:05/06/2025 12:54:06 PM Interpretation: Performing Lab:[facility], [address] [place] [phone] Notes/Report: Urine Culture Report Result Urine Culture < 10,000 cfu/ml MM tomosynthesis screening B I Reviewed date:06/12/2025 05:21:49 PM Interpretation: Performing Lab: Notes/Report: [facility]'[address] [place] [address] Mammography Report Signed Patient: Rabia Wagner MR#: [id number] : 1955 Acct:[id number] Age/Sex: 69 / F ADM Date: 05/30/25 Loc: HO.MAMMO Attending Dr: Yfn Palmer MD Ordering Physician: Yfn Palmer MD Results: 2Be nign Findings Date of Service: 05/30/25 Follow Up: 1 Year From Orig inal Mammogram Procedure(s): MM tomosynthesis screening BI Accession Number(s): [id number] cc: Yfn Palmer MD EXAMINATION: MM SCREENING [...] Wong MD Signed By: <Electronically signed by Herni Wong MD in OV> 06/09/251936 DD/ 1215 TD/TT: 05/30/25 1244 Mortgage Loan Counselor: Nayely [facility] [address] [place] [address] Mammography Report Signed Patient: Jodi Wagner MR#: [id number] : 1955 Acct:[id number] Age/Sex: 69 / F ADM Date: 05/30/25 Loc: HO.MAMMO Attending Dr: Yfn Palmer MD Ordering Physician: Yfn Palmer MD Results: 2Be nign Findings Date of Service: 05/30/25 Follow Up: 1 Year From Orig inal Mammogram Procedure(s): MM tomosynthesis screening BI Accession Number(s): [id number] cc: Yfn Palmer MD EXAMINATION: MM SCREENING [...] by Henri Wong MD in OV> 06/09/25 1937 DD/ 1215 TD/TT: 05/30/25 1244 Mortgage Loan Counselor: Reason For Referral Reason Wheezing Diagnosis [...] Status W/U Status Risk Notes Problem Lymphocytosis (77246494) Lymphocytosis (D72.820) Active confirmed Problem Asthmatic bronchitis (047228216) Asthmatic bronchitis (J45.909) Active confirmed Problem 015904654 Diverticulitis (K57.92) Active confirmed Problem Genital herpes simplex (60276824) Herpesviral infection of urogenital system, 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 confirmed Problem 4565940891310 Tinnitus, bilate ral (H93.13) Active confirmed Problem 09512577 Intestinal malabsorption, 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) Active confirmed Problem 971898667 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) Active confirmed Problem Fibromyalgia (610773920) Fibromyalgia (M79.7) Active confirmed Problem Osteoporosis (94102722) Osteoporosis (M81.0) Active confirmed Problem Solitary nodule of lung (025984344) Lung nodule (R91.1) Active confirmed Problem 295166725 History of breas t cancer (Z85.3) Active confirmed Problem 16797111 Memory loss (R41.3) Active confirmed Problem Primary osteoarthritis (268881313) Primary osteoarthritis involving multiple joints (M15.0) Active confirmed Problem 277520231 Neutropenia, unspecified type (D70.9) Active confirmed Problem Coronary artery disease (39659406) CAD (coronary artery disease) (I25.10) Active confirmed Problem 85221062 Hypercholesterol emia (E78.00) Active confirmed Problem 303376719 Lung nodule < 6c m on CT (R91.1) Active confirmed Problem 26402534408689 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) Active confirmed Problem Takotsubo cardiomyopathy (285367257) Takotsubo cardiomyopathy (I51.81) Active confirmed Problem 989045495 History of Nisse n fundoplication (Z98.890) Active confirmed Problem 30045022719882 History of invas nenita ductal carcinoma of breast (Z85.3) Active confirmed Problem 67099212 Swallowing disor jame (R13.10) Active confirmed Vital [...] Yfn Palmer MD [address] [place] [id number] 05/05/2025 Yfn Palmer UTI (urinary tract infection) N39.0 Yfn Palmer MD [address] [place] [id number] 05/09/2025 Yfn Palmer Blood tests for rout ine general physical examination Z00.00 ; Hypercholesterolemia E78.00 and Neutropenia, unspecified type D70.9 Yfn Palmer MD [address] [place] [id number] 04/07/2025 Yfn Palmer Chest pain R07.9 Yfn Palmer MD [address] [place] [id number] 05/16/2025 Yfn Palmer Wheezing R06.2 ; David lt general medical examination Z00.00 ; Neutropenia, unspecified type D70.9 ; Lymphocytosis D72.820 ; Herpesviral infection of urogenital system, unspecified A60.00 ; Hypercholesterolemia E78.00 and Depression screening Z13.31 Yfn Palmer MD [address] [place] [id number] 04/04/2025 Yfn Palmer MD [address] [place] [id number] 04/07/2025 Yfn Palmer MD [address] [place] [id number] 06/14/2025 Yfn Palmer Assessments Encounter Date Diagnosis (ICD Code) Assessment Notes Treatment Notes Treatment Clinical Notes Section Notes 05/05/2025 UTI (urinary tract infection) (ICD-10 - N39.0) 05/09/2025 Blood tests for rout ine general physical examination (ICD-10 - Z00.00) 04/07/2025 Chest pain (ICD-10 - R07.9) need last note from amy at [facility] cardiology/ has been evaluated in er and [...] Z00.00) labs reviewed and discussed with patient 05/09/2025 Hypercholesterolemia (ICD-10 - E78.00) 05/16/2025 Neutropenia, [...] Provider Name:Yfn Jordan ier, 11/21/2025 08:00:00 AM, [address] [place] [address], [address], [place], [place], [phone], Provider Name:Yfn Jordan ier, 11/28/2025 02:00:00 PM, [address] [place] [address], [address], [place], [place], [phone], Provider Name:Yfn Jordan ier, 05/11/2026 07:15:00 AM, [address] [place] [address], [address], [place], [place], [phone], Provider Name:Yfn Jordan ier, 05/19/2026 02:30:00 PM, [address] [place] [address], [address], [place], [place], [phone], Insurance Providers Payer Name Payer Address Payer Phone Subscriber Number Group Number Insured Name Patient Relationship to Insured Coverage Start Date Coverage End Date [employer] [facility] [address] [place] [phone] [id number] Rabia WAGNER Self - patient is the insured Medical (General) History Medical History History ICD Code 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 and lost her memory colonoscopy [address] chest unchanged for at least year s no need for follow up covid 12/17
== END 2025-09-09 11:53 | disposition home or self-care (01) ==
LOC: HO.RHES 10:54
PROVIDERS: PCP Internal Medicine; Visit Provider Student in an Organized Health Care Education/Training Program
DX: M05.79 Rheumatoid arthritis with rheumatoid factor of multiple sites without organ or systems involvement (principal); M81.0 Age-related osteoporosis without current pathological fracture; M79.7 Fibromyalgia; Z51.81 Encounter for therapeutic drug level monitoring; Z79.69 Long term (current) use of other immunomodulators and immunosuppressants; Z79.899 Other long term (current) drug therapy
CPT/HCPCS: 99204; G2211

== ENCOUNTER 2025-10-04 10:10 | Outpatient (AMB) | payer MEDICARE, SELFPAY ==
--- OUTSIDE RECORDS SUMMARY | 2024-08-13 09:08 | XMS_ITS ---
Author Organization Yfn Palmer MD Address [address] [place] [phone] Care Team Providers Care Attendant Campground Name Role Phone Yfn Palmer Primary Care Provider [phone] Chest due Encounters Encounter Location Date Provider Diagnosis Yfn Palmer MD [address] [facility] [address] [place] [phone] 08/13/2024 Yfn Palmer Lung nodule < 6cm on CT R91.1 Assessments Encounter Date Diagnosis (ICD Code) Assessment Notes Treatment Notes Treatment Clinical Notes Section Notes 08/13/2024 Lung nodule < 6cm on CT (ICD-10 - R91.1) Order made and put into the future order folder for Plan Of Treatment Treatment Notes Assessment Notes Lung nodule < 6cm on CT Order made and p ut into the future order folder for Pending Test Test Name Order Date CT chest wo con 08/13/2024 Next Appt Details Provider Name:Yfn taylor, 11/21/2025 08:00:00 AM, [address] [place] [address], [address], [phone], Provider Name:Yfn taylor, 11/28/2025 02:00:00 PM, [address] [place] [address], [address], [phone], Provider Name:Yfn taylor, 05/11/2026 07:15:00 AM, [address], [address], [place], [phone], Provider Name:Yfn taylor, 05/19/2026 02:30:00 PM, [address], [address], [place], [phone], Progress Notes * Brie CATALANOB:1955 (68 yo F)Acc No.[id number]:08/13/2024 Patient: Rabia TALAMANTES :1955 A ge:68 Y S ex:Female Address:[place], [address] Subjective: * Chief Complaints: * C T Chest due * Medical History: * Surgical History: * Hospitalization/Major Diagno stic Procedure: * Medications: Objective: Assessment: * Assessment: 1. L shyam nodule < 6cm on CT - R91.1 Plan: * Treatment: Notes: Order made and put into the future order folder for ?? * Procedure Codes: * true * Date: Generated for Freddy nieves/Jaison/eTyumikosmitting on: 12/04/2024 11:40 AM EST
--- OUTSIDE RECORDS SUMMARY | 2024-08-16 09:00 | XMS_ITS ---
Author Organization Yfn Palmer MD Address [address] [place], [place] [phone] Care Team Providers Care Dynamometer Repairer Name Role Phone Yfn Palmer Primary Care Provider Allergies Allergen (clinical drug ingredient) Drug/Non Drug Allergy documented on EMR Reaction Allergy Type Onset Date Status galantamine Galantamine Hydrobromide numbness Drug Allergy Active EPINEPHrine low BP Drug Allergy Activ e celecoxib Celebrex chest pain Drug Allergy Active Aleve chest pain Drug Allergy Active phenobarbital Phenobarbital palpitations Drug Allergy Active atorvastatin Lipitor rhabdomyalissi Drug Allergy Active acetaminophen / hydrocodone Hydrocodone-Acetami nophen itch vomiting Drug Allergy Active REASON FOR VISIT 2 month Medications Medication SIG (Take, Route, Frequency, Duration) Notes Start Date End Date Status Lidocaine Plus 4 % 1 application Externally as needed Not-Taking Carol Allergy 180 MG 1 tablet Orally O nce a day for 30 day(s) Not-Taking Ventolin HFA 108 (90 Base) MCG/ACT 1 puff as needed Inhalation every 4 hrs Not-Takin g Hyoscyamine Sulfate SL 0.125 MG 1 tablet under the tongue and allow to dissolve as needed Sublingual Three times a day for 10 days 04/24/2023 Not-Taking Triamcinolone Acetonide 0.5 % 1 application Externally Two times a Week for 30 days 06/21/2022 Not-Taking Leflunomide 20 MG 1 tablet Orally Once a day for 30 day(s) Active Lisinopril 5 MG 1 tablet Orally Once a day Active Aspir-Low 81 MG 1 tablet Orally Once a day for 30 day(s) Active Immunizations Vaccine Route Administration Date Status Comme nts Influenza High Dose Unknown 08/16/2024 Refused Vital Signs Blood pressure systolic 136 mm Hg 08/16/20 24 Blood pressure diastolic 64 mm Hg 024 Height 62.5 in 08/16/2024 Weight 132 lbs 08/16/2024 BMI 23.76 kg/m2 08/16/2024 Encounters Encounter Location Date Provider Diagnosis Yfn Palmer MD [address] [place] [address] [place] [phone] 08/16/2024 Yfn Palmer Lung nodules R91.8 and Neutropenia, unspecified type D70.9 Assessments Encounter Date Diagnosis (ICD Code) Assessment Notes Treatment Notes Treatment Clinical Notes Section Notes 08/16/2024 Lung nodules (ICD-10 - R91.8) reviewed cat scan and discussed findings with patient and no change. repeat in one year/ order put in future folder 08/16/2024 Neutropenia, unspecified type (ICD-10 - D70.9) will contnue to monitor , lab ordered, pending Plan Of Treatment Treatment Notes Assessment Notes Lung nodules reviewed cat scan an d discussed findings with patient and no change. repeat in one year/ order put in future folder Neutropenia, unspecified type will contn ue to monitor , lab ordered, pending Future Test Test Name Order Date CT chest w con 08/16/2025 Next Appt Details Provider Name:Yfn taylor, 11/21/2025 08:00:00 AM, [address] [place] [address], [address], [phone], Provider Name:Yfn taylor, 11/28/2025 02:00:00 PM, [address] [place] [address], [address], [phone], Provider Name:Yfn taylor, 05/11/2026 07:15:00 AM, [address] [place] [address], [phone], Provider Name:Yfn taylor, 05/19/2026 02:30:00 PM, [address] [place] [address], [address], [place], [phone], Progress Notes * Aixa CATALANneDOB:1955 (68 yo F)Acc No.[id number]:08/16/2024 Progress Notes Patient: Rabia TALAMANTES Provider: Joey Palmer MD :1955 A ge:68 Y S ex:Female Date:08/16/2024 [facility] [facility] [place] [facility] Subjective: * Chief Complaints: * 2 month * HPI: P ediatric Developmental Evaluation: S ymptom(s): patient is a 68 yo female here for 2 month follow up visit.still having some minor discofort in abdomen. * ROS: G eneral/Constitutional: Denies C hills. D enies F atigue. D enies F ever. D enies H eadache. E NT: Patient denies d ecreased sense of smell, any loss of taste, sore throat. D enies S ore throat. R espiratory: Denies C ough. D enies S hortness of breath at rest. D enies S hortness of breath with exertion. G astrointestinal: Denies D iarrhea. D enies N ausea. M usculoskeletal: Patient denies m uscle aches. P eripheral Vascular: Patient denies r ed and blue toes. * Medical History: * Surgical History: * Hospitalization/Major Diagno stic Procedure: * Medications: T akingAspir-Low 81 MG Tablet Delayed Release 1 tablet Orally Once a dayLisinopril 5 MG Tablet 1 tablet Orally Once a dayLeflunomide 20 MG Tablet 1 tablet Orally Once a dayTaking Aspir-Low 81 MG Tablet Delayed Release 1 tablet Orally Once a dayTaking Lisinopril 5 MG Tablet 1 tablet Orally Once a dayTaking Leflunomide 20 MG Tablet 1 tablet Orally Once a dayNot-Taking/PRNTriamcinolone Acetonide 0.5 % Cream 1 application Externally Two times a WeekHyoscyamine Sulfate SL 0.125 MG Tablet Sublingual 1 tablet under the tongue and allow to dissolve as needed Sublingual Three times a dayVentolin HFA 108 (90 Base) MCG/ACT Aerosol Solution 1 puff as needed Inhalation every 4 hrsAllegra Allergy 180 MG Tablet 1 tablet Orally Once a dayLidocaine Plus 4 % Cream 1 application Externally as neededMedication List reviewed and reconciled with the patientNot-Taking/PRN Triamcinolone Acetonide 0.5 % Cream 1 application Externally Two times a WeekNot-Taking/PRN Hyoscyamine Sulfate SL 0.125 MG Tablet Sublingual 1 tablet under the tongue and allow to dissolve as needed Sublingual Three times a dayNot-Taking/PRN Ventolin HFA 108 (90 Base) MCG/ACT Aerosol Solution 1 puff as needed Inhalation every 4 hrsNot-Taking/PRN Carol Allergy 180 MG Tablet 1 tablet Orally Once a dayNot-Taking/PRN Lidocaine Plus 4 % Cream 1 application Externally as neededMedication List reviewed and reconciled with the patient * Allergies: P henobarbital: palpitationsEPINEPHrine: low BPCelebrex: chest painAleve: chest painHydrocodone-Acetaminophen: itch vomitingGalantamine Hydrobromide: numbnessLipitor: rhabdomyalissiyes[Allergies Verified] Objective: * Vitals: H t: 62.5, Wt:132, BMI:23.76, BP:136/64. * Examination: G eneral Examination: GENERAL APPEARANCE: alert, well hydrated, in no distress . HEAD: normocephalic. SKIN: good turgor. HEART: regular rate and rhythm, no murmurs, rubs, gallops. LUNGS: no wheezes, rales, rhonchi, good air movement, clear to auscultation bilaterally. ABDOMEN: soft, nontender, nondistended, no rebound tenderness, no organomegaly . Assessment: * Assessment: 1. L shyam nodules - R91.8 (Primary) 2 . N eutropenia, unspecified type - D70.9 Plan: * Treatment: 2. N eutropenia, unspecified type Notes: will contnue to monitor , lab ordered, pending * Immunizations: Influenza High Dose (Not administered - Refused: Patient decision) * Procedure Codes: * * Sign off status: Completed true * Provider: Joey Palmer MD Date: 0 08/16/2024 Generated for Freddy nieves/Jaison/Pabloitting on: 1 12/04/2024 11:40 AM EST History and Physical Notes * HPI (History of Present Illness) Category Sub-Category Detail Notes Category Not es Symptom(s) patient is a 68 yo female here for 2 month follow up visit.still having some minor discofort in abdomen Pediatric Developmental Evaluation Examination Category Sub-Category Detail Notes Category Not es General Examination GENERAL APPEARANCE: alert, w ell hydrated, in no distress HEAD: normocephalic HEART: regular rate and rhy thm, no murmurs, rubs, gallops LUNGS: no wheezes, rales, r honchi, good air movement, clear to auscultation bilaterally ABDOMEN: soft, nontender, non distended, no rebound tenderness, no organomegaly SKIN: good turgor
--- OUTSIDE RECORDS SUMMARY | 2024-10-18 03:00 | XMS_ITS ---
Author Organization Yfn Palmer MD Address [address] [place], [place] [id number] Care Team Providers Care Commanding Officer Homicide Squad Name Role Phone Yfn Palmer Primary Care Provider Results Component Value Reference Range Notes Complete Blood Count Auto Di ff Reviewed date:10/18/2024 05:30:42 PM Interpretation: Performing Lab:[facility], [address] [place] [phone] Notes/Report: White Blood Count 4.1 4.8-10.8 X10*3/uL Red Blood Count 3.57 4.20-5.50 X10*6/uL Hemoglobin 11.8 12.0-16.0 g/dl Hematocrit 35.3 37.0-47.0 % Mean Corpuscular Volume 98.9 80.0-98.0 fL Mean Corpuscular Hemoglobin 33.1 27.0-33.0 pg Mean Corpuscular HGB Conc 33.4 31.0-35.0 g/dl Red Cell Distribution Width 12.0 11.0-16.0 % Platelet Count 212 160-400 X10*3/uL Mean Platelet Volume 11.8 9.4-12.3 fL Neutrophils Percent Auto 32.6 45-73 % Imm Gran Pct Auto 0.0 0.0-0.4 % Lymphocytes Percent Auto 49.6 20-40 % Monocytes Percent Auto 11.1 2-11 % Eosinophils Percent Auto 5.2 0-4 % Basophils Percent Auto 1.5 0-2 % NRBC Pct Auto 0.0 0.0-0.2 /100WBC Neutrophils Absolute Auto 1.3 2.0-8.3 x10*3/u L Imm Gran Abs Auto 0.00 0.00-0.03 X10*3/uL Lymphocytes Absolute Auto 2.0 1.2-4.9 X10*3/u L Monocytes Absolute Auto 0.5 0.1-1.2 X10*3/uL Eosinophils Absolute Auto 0.2 0.0-0.4 X10*3/u L Basophils Absolute Auto 0.1 0.0-0.2 X10*3/uL NRBC Abs Auto 0.000 0.0-0.012 X10*3/uL REASON FOR VISIT CBC with diff Medications Medication SIG (Take, Route, Frequency, Duration) Notes Start Date End Date Status Leflunomide 20 MG 1 tablet Orally Once a day for 30 day(s) Active Aspir-Low 81 MG 1 tablet Orally Once a day for 30 day(s) Active Lisinopril 5 MG 1 tablet Orally Once a day Active Lidocaine Plus 4 % 1 application Externally as needed Not-Taking Carol Allergy 180 MG 1 tablet Orally O nce a day for 30 day(s) Not-Taking Hyoscyamine Sulfate SL 0.125 MG 1 tablet under the tongue and allow to dissolve as needed Sublingual Three times a day for 10 days 04/24/2023 Not-Taking Triamcinolone Acetonide 0.5 % 1 application Externally Two times a Week for 30 days 06/21/2022 Not-Taking Ventolin HFA 108 (90 Base) MCG/ACT 1 puff as needed Inhalation every 4 hrs Not-Takhortencia g Encounters Encounter Location Date Provider Diagnosis Yfn Palmer MD [address] [place], [place] [phone] 10/18/2024 Yfn Palmer Lung nodules R91.8 Assessments Encounter Date Diagnosis (ICD Code) Assessment Notes Treatment Notes Treatment Clinical Notes Section Notes 10/18/2024 Lung nodules (ICD-10 - R91.8) Plan Of Treatment Next Appt Details Provider Name:Yfn taylor, 11/21/2025 08:00:00 AM, [address] [place] [address] Drive, [address], [place], [place], [phone], Provider Name:Yfn Jordan ier, 11/28/2025 02:00:00 PM, [address], [address], [place], [phone], Provider Name:Yfn Jordan ier, 05/11/2026 07:15:00 AM, [address] [facility], [address], [place], [phone], Provider Name:Yfn Jordan ier, 05/19/2026 02:30:00 PM, [address], [address], [place], [phone], Progress Notes * Aixa CATALANKiaraOB:1955 (69 yo F)Acc No.[id number]:10/18/2024 Progress Note Patient: Rabia TALAMANTES Provider: Joey Palmer MD :1955 A ge:68 Y S ex:Female Date:10/18/2024 Address:[address] [facility] Subjective: * Chief Complaints: * 1 . CBC with diff. * Medical History: * Medications: T aking Aspir-Low 81 MG Tablet Delayed Release 1 tablet Orally Once a day , Taking Lisinopril 5 MG Tablet 1 tablet Orally Once a day , Taking Leflunomide 20 MG Tablet 1 tablet Orally Once a day , Not-Taking/PRN Triamcinolone Acetonide 0.5 % Cream 1 application Externally Two times a Week , Not-Taking/PRN Hyoscyamine Sulfate SL 0.125 MG Tablet Sublingual 1 tablet under the tongue and allow to dissolve as needed Sublingual Three times a day , Not-Taking/PRN Ventolin HFA 108 (90 Base) MCG/ACT Aerosol Solution 1 puff as needed Inhalation every 4 hrs , Not-Taking/PRN Carol Allergy 180 MG Tablet 1 tablet Orally Once a day , Not-Taking/PRN Lidocaine Plus 4 % Cream 1 application Externally as needed Objective: * Vitals: Assessment: * Assessment: 1. L shyam nodules - R91.8 Plan: * Treatment: * * The named appointment provid er may or may not be the originator of this progress note, and it is not deemed complete until electronically signed by the appointment provider. Sign off status: Pending * Provider: Joey Palmer MD Date: 12/18/2023 Generated for Freddy nieves/Jaison/Jeannette on: 12/04/2024 11:41 AM EST
--- OUTSIDE RECORDS SUMMARY | 2025-04-04 04:24 | XMS_ITS ---
Author Organization Yfn Palmer MD Address [address] [phone] Care Team Providers Care Glass Sander Name Role Phone Yfn Palmer Primary Care Provider [phone] REASON FOR VISIT ER visit rec'd Encounters Encounter Location Date Provider Diagnosis Yfn Palmer MD [address] [place] [address] [place] [phone] 04/04/2025 Yfn Palmer Plan Of Treatment Next Appt Details Provider Name:Yfn taylor, 11/21/2025 08:00:00 AM, [address] [place] [address], [address], [phone], Provider Name:Yfn taylor, 11/28/2025 02:00:00 PM, [address] [place] [address], [address], [phone], Provider Name:Ynf Jordan ier, 05/11/2026 07:15:00 AM, [address] [place] [address], [phone], Provider Name:Yfn taylor, 05/19/2026 02:30:00 PM, [address] [place] [address], [address], [phone], Progress Notes * Brie CATALANOB:1955 (69 yo F)Acc No.[id number]:04/04/2025 Patient: Rabia TALAMANTES :1955 A ge:69 Y S ex:Female Address:[place], [address] * true * Date: Generated for Freddy nieves/Jaison/eTransmitting on: 12/04/2024 11:41 AM EST
--- OUTSIDE RECORDS SUMMARY | 2025-04-07 08:00 | XMS_ITS ---
Author Organization Yfn Palmer MD Address [address] [place], [place] [id number] Care Team Providers Care Procurement Analyst Name Role Phone Yfn Palmer Primary Care Provider [phone] Allergies Allergen (clinical drug ingredient) Drug/Non Drug [...] vomiting Drug Allergy Active REASON FOR VISIT post ER Visit Medications Medication SIG (Take, Route, Frequency, Duration) Notes Start Date End Date Status Lidocaine Plus 4 % 1 application Externally as needed Not-Taking Ventolin HFA 108 (90 Base) MCG/ACT 1 puff as needed Inhalation every 4 hrs Not-Taking Carol Allergy 180 MG 1 tablet Orally O nce a day for 30 day(s) Not-Taking Triamcinolone Acetonide 0.5 % 1 application Externally Two times a Week for 30 days 06/21/2022 Not-Taking Hyoscyamine Sulfate SL 0.125 MG 1 tablet under the tongue and allow to dissolve as needed Sublingual Three times a day for 10 days 04/24/2023 Not-Taking Lisinopril 5 MG 1 tablet Orally Once a day Active Leflunomide 20 MG 1 tablet Orally Once a day for 30 day(s) Active Hydroxychloroquine Sulfate 200 MG as directed Orally Active Aspir-Low 81 MG 1 tablet Orally Once a day for 30 day(s) Active Albuterol Sulfate HFA 108 (90 Base) MCG/ACT 1 puff as needed Inhalation every 4 hrs for 30 days 04/07/2025 Active Omeprazole 20 MG 1 capsule 1/2 to 1 hour before morning meal Orally Once a day for 30 days 04/07/2025 Active Vital Signs Blood pressure systolic 138 mm Hg 04/07/20 25 Blood pressure diastolic 60 mm Hg 025 Height 62.5 in 04/07/2025 Weight 137 lbs 04/07/2025 BMI 24.66 kg/m2 04/07/2025 weight is up 5 pounds since 08-16-24 Encounters Encounter Location Date Provider Diagnosis Yfn Palmer MD [address] [place], [place] [phone] 04/07/2025 Yfn Palmer Chest pain R07.9 Assessments Encounter Date Diagnosis (ICD Code) Assessment Notes Treatment Notes Treatment Clinical Notes Section Notes 04/07/2025 Chest pain (ICD-10 - R07.9) need last note from [facility] cardiology/ has been evaluated in er and in cardiology and neg workiup does not sound cardiac since it moves all around and is on both sides of her chest/ possibly gi since it came on while on high dose prednisone/ OFFICE NOTE REQUESTED FROM CARDIOLOGY Plan Of Treatment Medication Medication Name Sig Start Date Stop Date Notes Albuterol Sulfate HFA 108 (9 0 Base) MCG/ACT 1 puff as needed Inhalation every 4 hrs for 30 days 04/07/2025 Omeprazole 20 MG 1 capsule 1/2 to 1 h our before morning meal Orally Once a day for 30 days 04/07/2025 Treatment Notes Assessment Notes Chest pain need [facility]/ has been evaluated in er and in cardiology and neg workiup does not sound cardiac since it moves all around and is on both sides of her chest/ possibly gi since it came on while on high dose prednisone/ OFFICE NOTE REQUESTED FROM CARDIOLOGY Next Appt Details Follow Up: 3 Weeks, Reason: Provider Name:Yfn taylor, 11/21/2025 08:00:00 AM, [address], [address], [place], [place], [phone], Provider Name:Yfn Jordan ier, 11/28/2025 02:00:00 PM, [address], [address], [place], [phone], Provider Name:Yfn Jordan ier, 05/11/2026 07:15:00 AM, [address], [address], [place], [phone], Provider Name:Yfn Jordan ier, 05/19/2026 02:30:00 PM, [address], [address], [place], [phone], Progress Notes * Aixa CATALANKiaraOB:1955 (69 yo F)Acc No.[id number]:04/07/2025 Progress Notes Patient: Rabia TALAMANTES Provider: Joey Palmer MD :1955 A ge:69 Y S ex:Female Date:04/07/2025 Address:[address] [place], [place] Subjective: * Chief Complaints: * p ost ER Visit * HPI: S ymptom(s): patient is a 69 yo female here for follow up of recent ER visit/ had been getting chest tightness on left or rt chest. lasts for days. does get it with walking and climbing stairs. last week it was a stabbing pain and is hard to breathe. has to stop/ in the last month cardiology has done a? stress test and moniter, echo in the er. had been on prednisone 60 mg and dropping down over 3 weeks. * ROS: G eneral/Constitutional: Denies C hills. D enies F atigue. D enies F ever. D enies H eadache. E NT: Denies S ore throat. R espiratory: Denies C ough. D enies S hortness of breath at rest. D enies S hortness of breath with exertion. C ardiovascular: Denies C hest pain at rest. D enies C hest pain with exertion. D enies P alpitations. D enies S hortness of breath. G astrointestinal: Denies D iarrhea. D enies N ausea. * Medical History: * Surgical History: * Hospitalization/Major Diagno stic Procedure: * Medications: T akingHydroxychloroquine Sulfate 200 MG Tablet as directed Orally Aspir-Low 81 MG Tablet Delayed Release 1 tablet Orally Once a day Lisinopril 5 MG Tablet 1 tablet Orally Once a day Leflunomide 20 MG Tablet 1 tablet Orally Once a day Taking Hydroxychloroquine Sulfate 200 MG Tablet as directed Orally Taking Aspir-Low 81 MG Tablet Delayed Release 1 tablet Orally Once a day Taking Lisinopril 5 MG Tablet 1 tablet Orally Once a day Taking Leflunomide 20 MG Tablet 1 tablet Orally Once a day Not-Taking/PRNTriamcinolone Acetonide 0.5 % Cream 1 application Externally Two times a Week Hyoscyamine Sulfate SL 0.125 MG Tablet Sublingual 1 tablet under the tongue and allow to dissolve as needed Sublingual Three times a day Ventolin HFA 108 (90 Base) MCG/ACT Aerosol Solution 1 puff as needed Inhalation every 4 hrs Carol Allergy 180 MG Tablet 1 tablet Orally Once a day Lidocaine Plus 4 % Cream 1 application Externally as needed Medication List reviewed and reconciled with the patientNot-Taking/PRN Triamcinolone Acetonide 0.5 % Cream 1 application Externally Two times a Week Not-Taking/PRN Hyoscyamine Sulfate SL 0.125 MG Tablet Sublingual 1 tablet under the tongue and allow to dissolve as needed Sublingual Three times a day Not-Taking/PRN Ventolin HFA 108 (90 Base) MCG/ACT Aerosol Solution 1 puff as needed Inhalation every 4 hrs Not-Taking/PRN Carol Allergy 180 MG Tablet 1 tablet Orally Once a day Not-Taking/PRN Lidocaine Plus 4 % Cream 1 application Externally as needed Medication List reviewed and reconciled with the patient * Allergies: P henobarbital: palpitationsEPINEPHrine: low BPCelebrex: chest painAleve: chest painHydrocodone-Acetaminophen: itch vomitingGalantamine Hydrobromide: numbnessLipitor: rhabdomyalissiyes[Allergies Verified] Objective: * Vitals: H t: 62.5, Wt: 137, BMI:24.66, BP:138/60, Wt-k.14. weight is up 5 pounds since 9--24. * Examination: G eneral Examination: GENERAL APPEARANCE: a lert, well hydrated, in no distress.? HEAD: n ormocephalic. SKIN: g ood turgor. HEART: r egular rate and rhythm, no murmurs, rubs, gallops.? LUNGS: n o wheezes, rales, rhonchi, good air movement, clear to auscultation bilaterally. Assessment: * Assessment: 1. C hest pain - R07.9 (Primary) Plan: * Treatment: 2. O thers Start Omeprazole Capsule Delayed Release, 20 MG, 1 capsule 1/2 to 1 hour before morning meal, Orally, Once a day, 30 days, 30, Refills 5; S tart Albuterol Sulfate HFA Aerosol Solution, 108 (90 Base) MCG/ACT, 1 puff as needed, Inhalation, every 4 hrs, 30 days, 1. * Procedure Codes: * Follow Up: 3 Weeks * * Sign off status: Completed true * Provider: Joey Palmer MD Date: 0 04/07/2025 Generated for Freddy nieves/Jaison/eTransmitting on: 1 12/04/2024 11:41 AM EST History and Physical Notes * HPI (History of Present Illness) Category Sub-Category Detail Notes Category Not es Symptom(s) patient is a 69 yo female here for follow up of recent ER visit/ had been getting chest tightness on left or rt chest. lasts for days. does get it with walking and climbing stairs. last week it was a stabbing pain and is hard to breathe. has to stop/ in the last month cardiology has done a stress test and moniter, echo in the er. had been on prednisone 60 mg and dropping down over 3 weeks Examination Category Sub-Category Detail Notes Category Not es General Examination GENERAL APPEARANCE: alert, w ell hydrated, in no distress HEAD: normocephalic HEART: regular rate and rhy thm, no murmurs, rubs, gallops LUNGS: no wheezes, rales, r honchi, good air movement, clear to auscultation bilaterally SKIN: good turgor
--- OUTSIDE RECORDS SUMMARY | 2025-04-07 09:11 | XMS_ITS ---
Author Organization Yfn Palmer MD Address [address] [facility] [address] [place] [phone] Care Team Providers Care Shoe Shiner Name Role Phone Yfn Palmer Primary Care Provider [phone] REASON FOR VISIT medication isue Encounters Encounter Location Date Provider Diagnosis Yfn Palmer MD [address] [place] [address] [place] [phone] 04/07/2025 Yfn Palmer Plan Of Treatment Next Appt Details Provider Name:Yfn taylor, 11/21/2025 08:00:00 AM, [address] [place] [address], [address], [phone], Provider Name:Yfn taylor, 11/28/2025 02:00:00 PM, [address] [place] [address], [address], [phone], Provider Name:Yfn taylor, 05/11/2026 07:15:00 AM, [address] [place] [address], [address], [phone], Provider Name:Yfn taylor, 05/19/2026 02:30:00 PM, [address] [place] [address], [address], [phone], Progress Notes * Brie CATALANOB:1955 (69 yo F)Acc No.[id number]:04/07/2025 Patient: Rabia TALAMANTES :1955 A ge:69 Y S ex:Female Address:[place], [address] * true * Date: Generated for Freddy nieves/Jaison/eTransmitting on: 12/04/2024 11:40 AM EST
--- OUTSIDE RECORDS SUMMARY | 2025-05-05 05:00 | XMS_ITS ---
Author Organization Yfn Palmer MD Address [address] [place] [phone] Care Team Providers Care Railroad Brakeman Name Role Phone Yfn Palmer Primary Care Provider [phone] Results Component Value Reference Range Notes UA ClnCatch+Micro w/rflx Cul t Reviewed date:05/05/2025 05:26:19 PM Interpretation: Performing Lab:[facility], [address] [place] [phone] Notes/Report: Urine, Clean Catch Color Urine Yellow Appearance Urine Clear PH 5.5 5.0-9.0 Glucose Urine UA Negative Negative mg/dL Urine Blood Negative Negative Specific [place] - Urine 1.015 1.005-1.025 Urine Protein Negative Neg-Trace mg/dL Urine Ketones Negative Negative mg/dL Nitrite Urine Negative Negative Leukocyte Esterase Urine Small (1+) Negative RBC Urine 0-2 0-2 /HPF WBC Urine 0-5 0-5 /HPF Squamous Epithelial Cell Urine 3-5 0-2 /HPF Bacteria Urine Trace None Seen Hyaline Casts Urine 0-2 0-2 /LPF REASON FOR VISIT UTI Encounters Encounter Location Date Provider Diagnosis Yfn Palmer MD [address] [place] [phone] 05/05/2025 Yfn Palmer UTI (urinary tract infection) N39.0 Assessments Encounter Date Diagnosis (ICD Code) Assessment Notes Treatment Notes Treatment Clinical Notes Section Notes 05/05/2025 UTI (urinary tract infection) (ICD-10 - N39.0) Plan Of Treatment Next Appt Details Provider Name:Yfn Jordan ier, 11/21/2025 08:00:00 AM, [address], Suite [facility], [place], [phone], Provider Name:Yfn Jordan ier, 11/28/2025 02:00:00 PM, [address] [place] [address], Suite [facility], [place], [phone], Provider Name:Yfn Joradn ier, 05/11/2026 07:15:00 AM, [address], Suite [facility], [place], [phone], Provider Name:Yfn Jordan ier, 05/19/2026 02:30:00 PM, [address] [place] [address], Suite [facility], [place], [phone], Progress Notes * ALAYNABrieOB:1955 (69 yo F)Acc No.[id number]:05/05/2025 Progress Note Patient: Rabia TALAMANTES Provider: Joey Palmer MD :1955 A ge:69 Y S ex:Female Date:05/05/2025 Address:[address] [facility] Subjective: * Chief Complaints: * 1 . UTI. * Medical History: Objective: * Vitals: Assessment: * Assessment: 1. U TI (urinary tract infection) - N39.0 (Primary) Plan: * Treatment: * * The named appointment provid er may or may not be the originator of this progress note, and it is not deemed complete until electronically signed by the appointment provider. Sign off status: Pending * Provider: Joey Palmer MD Date: 0 05/05/2025 Generated for Freddy nieves/Jaison/Pabloitting on: 12/04/2024 11:41 AM EST
--- OUTSIDE RECORDS SUMMARY | 2025-05-09 02:00 | XMS_ITS ---
Author Organization Yfn Palmer MD Address [address] [place], [place] [id number] Care Team Providers Care Microfilm Equipment Inspector Name Role Phone Yfn Palmer Primary Care Provider [phone] Results Component Value Reference Range Notes Complete Blood Count Auto Di ff Reviewed date:05/10/2025 05:05:27 PM Interpretation: Performing Lab:[facility], [address] [place] [phone] Notes/Report: White Blood Count 3.6 4.8-10.8 X10*3/uL Red Blood Count 3.78 4.20-5.50 X10*6/uL Hemoglobin 12.2 12.0-16.0 g/dl Hematocrit 37.5 37.0-47.0 % Mean Corpuscular Volume 99.2 80.0-98.0 fL Mean Corpuscular Hemoglobin 32.3 27.0-33.0 pg Mean Corpuscular HGB Conc 32.5 31.0-35.0 g/dl Red Cell Distribution Width 11.9 11.0-16.0 % Platelet Count 182 160-400 X10*3/uL Mean Platelet Volume 12.7 9.4-12.3 fL Neutrophils Percent Auto 35.1 45-73 % Imm Gran Pct Auto 0.3 0.0-0.4 % Lymphocytes Percent Auto 40.7 20-40 % Monocytes Percent Auto 12.9 2-11 % Eosinophils Percent Auto 9.1 0-4 % Basophils Percent Auto 1.9 0-2 % NRBC Pct Auto 0.0 0.0-0.2 /100WBC Neutrophils Absolute Auto 1.3 2.0-8.3 x10*3/u L Imm Gran Abs Auto 0.01 0.00-0.03 X10*3/uL Lymphocytes Absolute Auto 1.5 1.2-4.9 X10*3/u L Monocytes Absolute Auto 0.5 0.1-1.2 X10*3/uL Eosinophils Absolute Auto 0.3 0.0-0.4 X10*3/u L Basophils Absolute Auto 0.1 0.0-0.2 X10*3/uL NRBC Abs Auto 0.000 0.0-0.012 X10*3/uL Comprehensive [place]. Panel Fa st Reviewed date:05/09/2025 12:44:57 PM Interpretation: Performing Lab:[address] [phone] Notes/Report: Sodium 141 135-145 mmol/L Potassium 4.0 3.3-5.1 mmol/L Chloride 108 96-108 mmol/L Carbon Dioxide 28 22-29 mmol/L Anion Gap 9 12-20 Blood Urea Nitrogen 13 9-16 mg/dL Creatinine 0.81 0.5-1.4 mg/dL Estimated Glomerular Filt Rate > 60 Chronic Kidney Disease: Estimated GFR < 60 mL/min/1.73m2 Severe Kidney Disease: Estimated GFR < 15 mL/min/1.73m2 Glucose Fasting 86 60-99 mg/dL Calcium 9.0 8.4-10.2 mg/dL Bilirubin Total 0.5 0.0-1.0 mg/dL Aspartate Amino Transferase 22 5-31 U/L Alanine Aminotransferase 14 0-31 U/L Total Protein 6.3 6.5-8.0 g/dL Albumin Level 4.0 3.5-5.0 g/dL Alkaline Phosphatase 68 39-117 U/L Lipid Panel Reviewed date:05/09/2025 12:06:05 PM Interpretation: Performing Lab:[facility], [address] [place] [phone] Notes/Report: Triglycerides 105 <150 mg/dL Desirable Triglyceride: less than 150 mg/dL Borderline High Triglyceride 150-199 mg/dL High Triglyceride: 200-499 mg/dL Very High Triglyceride: greater than or equal to 5OO mg/dL Cholesterol 226 <200 mg/dL Desirable Cholesterol: less than 200 mg/dL Borderline High Cholesterol: 200-239 mg/dL High Cholesterol: greater than 239 mg/dL LDL Cholesterol Calculated 156 <100 mg/dL Desirable LDL: less than 100 mg/dL Near Optimal/Above Optimal LDL: 110-129 mg/dL Borderline High LDL: 130-159 mg/dL High LDL: 160-189 mg/dL Very High LDL: greater than or equal to 190 mg/dL HDL Cholesterol 49 >40 mg/dL Desirable HDL: greater than 40 mg/dL Note: This HDL assay may give artificially low results in patients with liver disease. REASON FOR VISIT yearly fasting labs Encounters Encounter Location Date Provider Diagnosis Yfn Palmer MD [address] [place] [address] [place] [phone] 05/09/2025 Yfn Palmer Blood tests for rout ine general physical examination Z00.00 ; Hypercholesterolemia E78.00 and Neutropenia, unspecified type D70.9 Assessments Encounter Date Diagnosis (ICD Code) Assessment Notes Treatment Notes Treatment Clinical Notes Section Notes 05/09/2025 Blood tests for rout ine general physical examination (ICD-10 - Z00.00) 05/09/2025 Hypercholesterolemia (ICD-10 - E78.00) 05/09/2025 Neutropenia, unspeci fied type (ICD-10 - D70.9) Plan Of Treatment Pending Test Test Name Order Date UA ClnCatch+Micro w/rflx Cult 05/09/2025 Next Appt Details Provider Name:Yfn taylor, 11/21/2025 08:00:00 AM, [address] [place] [address], Suite [facility], [place], [place], [phone], Provider Name:Yfn taylor, 11/28/2025 02:00:00 PM, [address] [place] [address], [place] [address], [place], [place], [phone], Provider Name:Yfn taylor, 05/11/2026 07:15:00 AM, [address] [place] [address], [place] [address], [place], [place], [phone], Provider Name:Yfn taylor, 05/19/2026 02:30:00 PM, [address], [address], [place], [place], [phone], Progress Notes * Brie CATALANOB:1955 (69 yo F)Acc No.[id number]:05/09/2025 Progress Note Patient: Rabia TALAMANTES Provider: Joey Palmer MD :1955 A ge:69 Y S ex:Female Date:05/09/2025 Address:[address] [facility] Subjective: * Chief Complaints: * 1 . Yearly fasting labs. * Medical History: Objective: * Vitals: Assessment: * Assessment: 1. B lood tests for routine general physical examination - Z00.00 (Primary) 2 .?Hypercholesterolemia - E78.00 3 . N eutropenia, unspecified type - D70.9? Plan: * Treatment: 2. H ypercholesterolemia L AB: UA ClnCatch+Micro w/rflx Cult L AB: Complete Blood Count Auto Diff (Collection Date & Time - 05/09/2025 07:00 AM) L AB: Comprehensive [place]. Panel Fast (Collection Date & Time - 05/09/2025 07:00 AM) L AB: Lipid Panel (Collection Date & Time - 05/09/2025 07:00 AM) 3. N eutropenia, unspecified type L AB: UA ClnCatch+Micro w/rflx Cult L AB: Complete Blood Count Auto Diff (Collection Date & Time - 05/09/2025 07:00 AM) L AB: Comprehensive [place]. Panel Fast (Collection Date & Time - 05/09/2025 07:00 AM) L AB: Lipid Panel (Collection Date & Time - 05/09/2025 07:00 AM) * Procedure Codes: 3 6415 VENIPUNCT, ROUTINE* * * The named appointment provid er may or may not be the originator of this progress note, and it is not deemed complete until electronically signed by the appointment provider. Sign off status: Pending * Provider: Joey Palmer MD Date: 0 05/09/2025 Generated for Freddy nieves/Jaison/eTransmitting on: 1 12/04/2024 11:41 AM EST
--- OUTSIDE RECORDS SUMMARY | 2025-05-16 05:30 | XMS_ITS ---
Author Organization Yfn Palmer MD Address [address] [place], [place] [id number] Care Team Providers Care Nuclear Equipment Research Engineer Name Role Phone Yfn Palmer Primary Care [...] Hydrocodone-Acetami nophen itch vomiting Drug Allergy Active Reason For Referral Reason Wheezing Diagnosis 1 Wheezing (R06.2) Referral Organization Yfn Palmer MD Referring Provider First Name Yfn Referring Provider Last Name Estela Referring Provider Speciality Internal M edicine Referred Provider DENISE STEVENSON Referred Provider Specialty Pulmonary [facility] General Notes Cait Galan 0 05/16/2025 11:04:28 AM >referral info faxed, Cait Galan 06/02/2025 03:24:22 PM > was told referral is being worked on, Cait Galan 06/10/2025 03:21:13 PM >was told call back next week, Cait Galan 06/17/2025 03:21:20 PM > referral info sent to patient Referral Priority Routine Referral Appointment Date 07/20/2025 REASON FOR VISIT ANNUAL VISIT Medications Medication SIG (Take, Route, Frequency, Duration) Notes Start Date End Date Status Lidocaine Plus 4 % 1 application Externally as needed Not-Taking Carol Allergy 180 MG 1 tablet Orally O nce a day for 30 day(s) Not-Taking Ventolin HFA 108 (90 Base) MCG/ACT 1 puff as needed Inhalation every 4 hrs Not-Taking Hyoscyamine Sulfate SL 0.125 MG 1 tablet under the tongue and allow to dissolve as needed Sublingual Three times a day for 10 days 04/24/2023 Not-Taking Triamcinolone Acetonide 0.5 % 1 application Externally Two times a Week for 30 days 06/21/2022 Not-Taking Albuterol Sulfate HFA 108 (90 Base) MCG/ACT INHALE 1 PUFF BY MOUTH EVERY 4 HOURS NEEDED for 33 Active Omeprazole 20 MG 1 capsule 1/2 to 1 hour before morning meal Orally Once a day for 30 days 04/07/2025 Active Leflunomide 20 MG 1 tablet Orally Once a day for 30 day(s) Active Lisinopril 5 MG 1 tablet Orally Once a day Active Aspir-Low 81 MG 1 tablet Orally Once a day for 30 day(s) Active Hydroxychloroquine Sulfate 200 MG as directed Orally Active valACYclovir HCl 500 MG 1 tablet Orally Once a day for 30 days 05/16/2025 Active Social History Tobacco Use: Social History Observation Description Date Details (start date - stop date) Never Smoker NA - NA Tobacco Use/Smoking Question Answer Notes Patient is [...] Never (0 point) Points 1 Interpretation Negative Problems Problem Type SNOMED Code ICD Code Onset Dates Problem Status W/U Status Risk Notes Problem Genital herpes simplex (21631664) Herpesviral infection of urogenital system, 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 confirmed Vital Signs Blood pressure systolic 128 mm Hg 05/16/20 25 Blood pressure diastolic 52 mm Hg 025 Height 62.5 in 05/16/2025 Weight 138 lbs 05/16/2025 BMI 24.84 kg/m2 05/16/2025 weight is up 1 pound since Encounters Encounter Location Date Provider Diagnosis Yfn Palmer MD [address] [place], [place] [id number] 05/16/2025 Yfn Palmer Wheezing R06.2 ; David lt general medical examination Z00.00 ; Neutropenia, unspecified type D70.9 ; Lymphocytosis D72.820 ; Herpesviral infection of urogenital system, unspecified A60.00 ; Hypercholesterolemia E78.00 and Depression screening Z13.31 Assessments Encounter Date Diagnosis (ICD Code) Assessment Notes Treatment Notes Treatment Clinical Notes Section Notes 05/16/2025 Wheezing (ICD-10 - R06.2) needs referral to pulmonary 05/16/2025 Adult general medica l examination (ICD-10 - Z00.00) labs reviewed and discussed with patient 05/16/2025 Neutropenia, unspecified type (ICD-10 - D70.9) 05/16/2025 Lymphocytosis (ICD-1 0 - D72.820) 05/16/2025 Herpesviral infectio n of urogenital system, unspecified (ICD-10 - A60.00) patient verbalized understanding of medication and directions for use 05/16/2025 Hypercholesterolemia (ICD-10 - E78.00) stable, will continue current regiment 05/16/2025 Depression screening (ICD-10 - Z13.31) negative screen Plan Of Treatment Medication Medication Name Sig Start Date Stop Date Notes valACYclovir HCl 500 MG 1 tablet Orally Once a day for 30 days 05/16/2025 Treatment Notes Assessment Notes Wheezing needs referral to lmonary Adult general medical examination labs r eviewed and discussed with patient Herpesviral infection of uro genital system, unspecified patient verbalized understanding of medication and directions for use Hypercholesterolemia stable, will contin ue current regiment Depression screening negative screen Future Test Test Name Order Date Liver Panel 11/15/2025 Referrals Referral Date Details 05/16/2025 05/16/2025, Wheezing , DENISE STEVENSON Next Appt Details Follow Up: 6 Months, Reason: Provider Name:Yfn Jordan ier, 11/21/2025 08:00:00 AM, [address] [facility], [address], [place], [place], [phone], Provider Name:Yfn Jordan claudia, 11/28/2025 02:00:00 PM, [address] [place] [address], [address], [place], [place], [phone], Provider Name:Yfn Jordan ier, 05/11/2026 07:15:00 AM, [address] [place] [address], [address] [facility], [place], [place], [phone], Provider Name:Yfn Jordan ier, 05/19/2026 02:30:00 PM, [address] [place] [address], [address] [facility], [place], [phone], Progress Notes * Aixa CATALANneDOB:1955 (69 yo F)Acc No.[id number]:05/16/2025 Progress Notes Patient: Rabia TALAMANTES Provider: Joey Palmer MD :1955 A ge:69 Y S ex:Female Date:05/16/2025 [id number] Subjective: * Chief Complaints: * A NNUAL VISIT * HPI: D epression Screening: PHQ-9 L ittle interest or pleasure in doing things N ot at all, F eeling down, depressed, or hopeless N ot at all, T rouble falling or staying asleep, or sleeping too much N ot at all, F eeling tired or having little energy N ot at all, P oor appetite or overeating N ot at all, F eeling bad about yourself or that you are a failure, or have let yourself or your family down N ot at all, T rouble concentrating on things, such as reading the newspaper or watching television N ot at all, M oving or speaking so slowly that other people could have noticed; or the opposite, being so fidgety or restless that you have been moving around a lot more than usual N ot at all, T houghts that you would be better off or of hurting yourself in some way N ot at all, T otal Score 0 . I nterpretation and Intervention D epression Screening Findings N egative, F ollow-Up for Depression : review of PHQ-9 found negative result, no follow-up needed. C ommunication Needs: Communication Needs D oes the patient have a hearing impairment N o, D oes the patient have a vision impairment? Y es, I f yes, what is the vision impairment? G lasses, D oes the patient have a cognition impairment? N o. F all Risk: History H ave you had any falls with injury in the past year? N o, H ave you had two or more falls in the past year? N o. S CARLITO Questions: SDOH Questions I n the past year have you been worried about losing housing? N o, I n the past year have you or any family members you live with been unable to get any of the following when it was really needed? Check all that apply: N one. S ymptom(s): patient is a 69 yo female here for annual visit with review of recent labs and follow up of chronic issues. fernanda wells has the pain in her rt chest all the time. feels it when she presses on it. 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 * ROS: G eneral/Constitutional: Change in appetite d enies. C hills d enies. F ever d enies. O phthalmologic: Blurred vision d enies. D ischarge d enies. P ain d enies. E NT: Decreased hearing d enies. S ore throat d enies.?Swollen glands d enies. E ndocrine: Cold intolerance d enies. E xcessive thirst d enies. H eat intolerance d enies. W eight loss d enies. R espiratory: Cough d enies. S hortness of breath at rest d enies. S hortness of breath with exertion d enies. W heezing d enies. C ardiovascular: Chest pain at rest d enies. C hest pain with exertion?denies. I rregular heartbeat d enies. S hortness of breath d enies. ? G astrointestinal: Abdominal pain d enies. C hange in bowel habits d enies. D iarrhea d enies. N ausea d enies. R ectal bleeding d enies. V omiting d enies . G enitourinary: Blood in urine d enies. D ifficulty urinating d enies. F requent urination d enies. U rinary incontinence D enies. M usculoskeletal: Painful joints d enies. W eakness d enies. ? S kin: Dry skin d enies. I tching d enies. D enies?Mole(s), changes in moles, new moles or any lesions of concern. D enies P hotosensitivity. R nishant d enies. N eurologic: Dizziness d enies. F ainting d enies. H eadache?denies. * Medical History: * Surgical History: * Hospitalization/Major Diagno stic Procedure: * Family History: F ather: 64 yrs. M other: 54 yrs. 1 brother(s) , 3 sister(s) . 2 daughter(s) . . Mother- CVA Father Cardiac both daughters substance abuse father alcoholic No mental health issues in the family, No pertinent family medical history, No pertinent family medical history. * Social History: T obacco Use: T obacco Use/Smoking P atient is a n onsmoker, A dditional Findings: Tobacco Non-User C urrent non-smoker, currently using no form of tobacco. D rugs/Alcohol: A lcohol Screen D id you have a drink containing alcohol in the past year? Y es, H ow often did you have a drink containing alcohol in the past year? M onthly or less (1 point), H ow many drinks did you have on a typical day when you were drinking in the past year? 1 or 2 drinks (0 point), H ow often did you have 6 or more drinks on one occasion in the past year? N ever (0 point), P oints 1 , I nterpretation N egative. M iscellaneous: C affeine: yes, frequency:, 1-2 cups per day. Children: yes. Exercise: yes, walks at work. Home smoke detector use: yes. Housing: renting. Living with: spouse. Marital status: . Pets: cats: dogs:1 dog. Travel outside of the [place]: no. * Medications: T akingHydroxychloroquine Sulfate 200 MG Tablet as directed Orally Aspir-Low 81 MG Tablet Delayed Release 1 tablet Orally Once a day Lisinopril 5 MG Tablet 1 tablet Orally Once a day Leflunomide 20 MG Tablet 1 tablet Orally Once a day Omeprazole 20 MG Capsule Delayed Release 1 capsule 1/2 to 1 hour before morning meal Orally Once a day Albuterol Sulfate HFA 108 (90 Base) MCG/ACT Aerosol Solution INHALE 1 PUFF BY MOUTH EVERY 4 HOURS NEEDED Taking Hydroxychloroquine Sulfate 200 MG Tablet as directed Orally Taking Aspir-Low 81 MG Tablet Delayed Release 1 tablet Orally Once a day Taking Lisinopril 5 MG Tablet 1 tablet Orally Once a day Taking Leflunomide 20 MG Tablet 1 tablet Orally Once a day Taking Omeprazole 20 MG Capsule Delayed Release 1 capsule 1/2 to 1 hour before morning meal Orally Once a day Taking Albuterol Sulfate HFA 108 (90 Base) MCG/ACT Aerosol Solution INHALE 1 PUFF BY MOUTH EVERY 4 HOURS NEEDED Not-Taking/PRNTriamcinolone Acetonide 0.5 % Cream 1 application [...] Objective: * Vitals: H t: 62.5, Wt: 138, BMI:24.84, BP:128/52, Wt-k.6. weight is up 1 pound since 04-07-25. * P ast Orders: L ab:Comprehensive [place]. Panel Fast (Order Date - 05/09/2025) (Collection Date & Time - 05/09/2025 07:00 AM) Value Reference Range Sodium 141 135-145 - mmol/L Bilirubin Total 0.5 0.0-1.0 - mg/dL Aspartate Amino Transferase 22 5-31 - U/L Alanine Aminotransferase 14 0-31 - U/L Total Protein 6.3 L 6.5-8.0 - g/dL Albumin Level 4.0 3.5-5.0 - g/dL Alkaline Phosphatase 68 39-117 - U/L Potassium 4.0 3.3-5.1 - mmol/L Chloride 108 96-108 - mmol/L Carbon Dioxide 28 22-29 - mmol/L Anion Gap 9 L 12-20 - Blood Urea Nitrogen 13 9-16 - mg/dL Creatinine 0.81 0.5-1.4 - mg/dL Estimated Glomerular Filt Rate > 60 - Glucose Fasting 86 60-99 - mg/dL Calcium 9.0 8.4-10.2 - mg/dL L ab:Lipid Panel (Order Date - 05/09/2025) (Collection Date & Time - 05/09/2025 07:00 AM) Value Reference Range Triglycerides 105 <150 - mg/dL Cholesterol 226 H <200 - mg/dL LDL Cholesterol Calculated 156 H <100 - mg/dL HDL Cholesterol 49 >40 - mg/dL L ab:UA ClnCatch+Micro w/rflx Cult (Order Date - 05/05/2025) (Collection Date & Time - 05/05/2025 10:00 AM) Value Reference Range Color Urine Yellow - Appearance Urine Clear - PH 5.5 5.0-9.0 - Glucose Urine UA Negative Negative - mg/dL Urine Blood Negative Negative - Specific [place] - Urine 1.015 1.005-1.025 - Urine Protein Negative Neg-Trace - mg/dL Urine Ketones Negative Negative - mg/dL Nitrite Urine Negative Negative - Leukocyte Esterase Urine Small (1+) A Negative - RBC Urine 0-2 0-2 - /HPF WBC Urine 0-5 0-5 - /HPF Squamous Epithelial Cell Urine 3-5 0-2 - /HP F Bacteria Urine Trace None Seen - Hyaline Casts Urine 0-2 0-2 - /LPF L ab:Urine Culture (Order Date - 05/05/2025) (Collection Date & Time - 05/05/2025) Value Reference Range Urine Culture < 10,000 cfu/ml - L ab:Complete Blood Count Auto Diff (Order Date - 05/09/2025) (Collection Date & Time - 05/09/2025 07:00 AM) Value Reference Range White Blood Count 3.6 L 4.8-10.8 - X10*3/uL Red Blood Count 3.78 L 4.20-5.50 - X10*6/uL Hemoglobin 12.2 12.0-16.0 - g/dl Hematocrit 37.5 37.0-47.0 - % Mean Corpuscular Volume 99.2 H 80.0-98.0 - fL Mean Corpuscular Hemoglobin 32.3 27.0-33.0 - pg Mean Corpuscular HGB Conc 32.5 31.0-35.0 - g/ dl Red Cell Distribution Width 11.9 11.0-16.0 - % Platelet Count 182 160-400 - X10*3/uL Mean Platelet Volume 12.7 H 9.4-12.3 - fL Neutrophils Percent Auto 35.1 L 45-73 - % Imm Gran Pct Auto 0.3 0.0-0.4 - % Lymphocytes Percent Auto 40.7 H 20-40 - % Monocytes Percent Auto 12.9 H 2-11 - % Eosinophils Percent Auto 9.1 H 0-4 - % Basophils Percent Auto 1.9 0-2 - % NRBC Pct Auto 0.0 0.0-0.2 - /100WBC Neutrophils Absolute Auto 1.3 L 2.0-8.3 - x10* 3/uL Imm Gran Abs Auto 0.01 0.00-0.03 - X10*3/uL Lymphocytes Absolute Auto 1.5 1.2-4.9 - X10* 3/uL Monocytes Absolute Auto 0.5 0.1-1.2 - X10*3/ uL Eosinophils Absolute Auto 0.3 0.0-0.4 - X10* 3/uL Basophils Absolute Auto 0.1 0.0-0.2 - X10*3/ uL NRBC Abs Auto 0.000 0.0-0.012 - X10*3/uL * Examination: G eneral Examination: GENERAL APPEARANCE: w ell developed, well nourished, in no acute distress. HEAD: n ormocephalic, atraumatic. EYES: p upils equal, round, reactive to light and accommodation, sclera non-icteric. EARS: n ormal. ORAL CAVITY: m ucosa moist. THROAT: c lear. NECK/THYROID: n brook supple, full range of motion, no cervical lymphadenopathy, no bruits. SKIN: w arm and dry, no suspicious lesions. HEART: r egular rate and rhythm, S1, S2 normal, no murmurs.? LUNGS: c lear to auscultation bilaterally. BREASTS: N o mass, no lump, abnormal left breast with surgical changed no axillary adenopathy. ABDOMEN: s oft, nontender, nondistended, bowel sounds present, normal, no organomegaly , no masses palpable. RECTAL EXAM: d eclined. FEMALE GENITOURINARY: d eclined. EXTREMITIES: n o clubbing, cyanosis, or edema. NEUROLOGIC: n onfocal, motor strength normal upper and lower extremities, sensory exam intact. Assessment: * Assessment: 1. A dult general medical examination - Z00.00 (Primary) 2 . W heezing - R06.2 3 . N eutropenia, unspecified type - D70.9 4 . L ymphocytosis - D72.820 5 . H erpesviral infection of urogenital system, unspecified - A60.00 6 . H ypercholesterolemia - E78.00 7 . D epression screening - Z13.31 Plan: * Treatment: 2. W kobi L AB: Liver Panel (Ordered for 11/15/2025) Notes: needs referral to pulmonary Referral To:DENISE STEVENSON Pulmonary Diseases Reason:Wheezing 3. H erpesviral infection of urogenital system, unspecified Start valACYclovir HCl Tablet, 500 MG, 1 tablet, Orally, Once a day, 30 days, 30 Tablet, Refills 11. L AB: Liver Panel (Ordered for 11/15/2025) Notes: patient verbalized understanding of medication and directions for use 4. H ypercholesterolemia Notes: stable, will continue current regiment 5. D epression screening Notes: negative screen * Procedure Codes: * Follow Up: 6 Months * * Sign off status: Completed true * Provider: Joey Palmer MD Date: 0 05/16/2025 Generated for Freddy nieves/Jaison/eTransmitting on: 1 12/04/2024 11:41 AM EST History and Physical Notes * HPI (History of Present Illness) Category Sub-Category Detail Notes Category Not es Symptom(s) patient is a 69 yo female here for annual visit with review of recent labs and follow up of chronic issues. still has the pain in her rt chest all the time. feels it when she presses on it. 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 Depression Screening PHQ-9 Little interest or pleasure in doing things: Not at all Feeling down, depressed, or hopeless: No t at all Trouble falling or staying asleep, or sl eeping too much: Not at all Feeling tired or having little energy: N ot at all Poor appetite or overeating: Not at all Feeling bad about yourself o r that you are a failure, or have let yourself or your family down: Not at all Trouble concentrating on thi ngs, such as reading the newspaper or watching television: Not at all Moving or speaking so slowly that other people could have noticed; or the opposite, being so fidgety or restless that you have been moving around a lot more than usual: Not at all Thoughts that you would be b garret off or of hurting yourself in some way: Not at all Total Score: 0 Interpretation and Intervention Depression Pancho carpio Findings: Negative Follow-Up for Depression: : review of PH Q-9 found negative result, no follow-up needed SDOH Questions SDOH Questions In the past year have you been worried about losing housing?: No In the past year have you or any family members you live with been unable to get any of the following when it was really needed? Check all that apply:: None Fall Risk History Have you had any falls with injury i n the past year?: No Have you had two or more falls in the year?: No Communication Needs Communication Needs Does the patient have a hearing impairment: No Does the patient have a vision impairmen t?: Yes If yes, what is the vision impairment?: Glasses Does the patient have a cognition impair ment?: No Examination Category Sub-Category Detail Notes Category Not es General Examination GENERAL APPEARANCE: well dev eloped, well nourished, in no acute distress HEAD: normocephalic, atrau matic EYES: pupils equal, round, reactive to light and accommodation, sclera non-icteric EARS: normal THROAT: clear NECK/THYROID: neck supple, full ra nge of motion, no cervical lymphadenopathy, no bruits HEART: regular rate and rhy thm, S1, S2 normal, no murmurs LUNGS: clear to auscultatio n bilaterally ABDOMEN: soft, nontender, non distended, bowel sounds present, normal, no organomegaly , no masses palpable NEUROLOGIC: nonfocal, motor stre ngth normal upper and lower extremities, sensory exam intact SKIN: warm and dry, no gómez picious lesions EXTREMITIES: no clubbing, cyanosi s, or edema BREASTS: No mass, no lump, ab normal left breast with surgical changed no axillary adenopathy RECTAL EXAM: declined FEMALE GENITOURINARY: declined ORAL CAVITY: mucosa moist Consultation Request Notes Referral Date Referring Provider Referred Provider Not es 05/16/2025 Yfn Palmer MOHAMMAD Wheezing
--- OUTSIDE RECORDS SUMMARY | 2025-06-14 10:11 | XMS_ITS ---
Author Organization Yfn Palmer MD Address [address] [facility] [address] [place] [phone] Care Team Providers Care Music Arranger Name Role Phone Yfn Palmer Primary Care Provider [phone] REASON FOR VISIT Chest CT Scan is due Encounters Encounter Location Date Provider Diagnosis Yfn Palmer MD [address] [facility] [address] [place] [phone] 06/14/2025 Yfn Palmer Plan Of Treatment Next Appt Details Provider Name:Yfn taylor, 11/21/2025 08:00:00 AM, [address] [place] [address], [address], [phone], Provider Name:Yfn taylor, 11/28/2025 02:00:00 PM, [address] [place] [address], [address], [phone], Provider Name:Yfn taylor, 05/11/2026 07:15:00 AM, [address] [place] [address], [address], [phone], Provider Name:Yfn taylor, 05/19/2026 02:30:00 PM, [address] [place] [address], [address], [phone], Progress Notes * Brie CATALANOB:1955 (69 yo F)Acc No.[id number]:06/14/2025 Patient: Rabia TALAMANTES :1955 A ge:69 Y S ex:Female Address:[place], [address] * true * Date: Generated for Freddy nieves/Jaison/eTransmitting on: 12/04/2024 11:40 AM EST
--- NOTE | 2025-10-04 10:22 | A.OFFVIS_ITS ---
Vital Signs 10/04/25 10:23 Height 5 ft 2 in Weight 127 lb 13.89 oz BMI 23.4 BP 130/70 Blood Pressure Location Lt brachial Position Sitting Pulse 78 Pulse Source Pulse Oximeter Pulse Oximetry (%) 95 Oxygen Delivery Method Room Air Intake Visit Reasons: dyspnea Intake Note: pt is here for follow up and breathing is better,no more attacks Commercial Internship Required: No Flight Security Specialist: Flight Security Specialist offered & declined Allergies celecoxib (From CELEBREX) Allergy (Unknown, Verified 10/04/25 10:51) CP epinephrine (EPINEPHRINE) Allergy (Unknown, Verified 10/04/25 10:51) HYPOTENSION galantamine (GALANTAMINE) Allergy (Unknown, Verified 10/04/25 10:51) NUMBNESS naproxen (From ALEVE) Allergy (Unknown, Verified 10/04/25 10:51) CP/NUMBNESS phenobarbital (PHENOBARBITAL) Allergy (Unknown, Verified 10/04/25 10:51) CP/NUMBNESS/TACHYCARDIA berberine Adverse Reaction (Severe, Verified 10/04/25 10:51) pain prednisone Adverse Reaction (Severe, Verified 10/04/25 10:51) chest pain meperidine (From Demerol) Adverse Reaction (Verified 10/04/25 10:51) Vomiting Medication List - Last Reconciled 10/04/25 by Abby Cristina MD albuterol sulfate 90 mcg/actuation 2 puffs inhalation PRN hydroxychloroquine 200 mg PO DAILY hydroxyzine HCl 25 mg PO BID PRN leflunomide 20 mg PO DAILY lisinopril mg PO triamcinolone acetonide 0.5% appl topical valacyclovir 500 mg PO DAILY Do you need a note to return to daycare/school/sports/work: No HPI HPI dyspnea: Details: This 68 years old very pleasant female is back for her follow-up. She claims that since her last visit and after I told her that the burning sensation in the right chest is not due to any lung disease, she has been feeling much better. She no longer has any significant burning sensation or pain in the right chest. She has very little cough. Denies any shortness of breath on minimal effort. Denies any wheezing and has hardly needed to use the albuterol. ON LICENSE OF [facility] Medical History (Updated 10/04/25 @ 11:13 by Abby Cristina MD) Asthma Rheumatoid arthritis Shortness of breath Pulmonary nodules Chest pain History of fibromyalgia History of rheumatoid arthritis Osteoporosis Osteopoikilosis Surgical History Hx of tubal ligation Hx of cholecystectomy Hx of partial mastectomy Hx of hernia repair Family History Father Diabetes Heart disease Mother Stroke Social History Alcohol intake: current Alcohol intake frequency: holidays/special occasions only Alcohol type: wine Patient Tobacco Use Status: Never used Tobacco Current occupational status: employed 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 - [employer] Review of Systems Const All systems reviewed & are unremarkable except as noted in HPI and below Eyes Reports no additional complaints ENT Reports no additional complaints Card Reports chest pain (Chest discomfort mostly in the right upper chest, atypical, ) Resp Reports as per HPI GI Reports heartburn (History of frequent GERD, improved since she had fundoplication procedure i) Reports no additional complaints Musc Reports back pain Skin/Breast Reports system reviewed and no additional complaints, except as documented Neuro Reports no additional complaints Psych Reports no additional complaints Endo Reports no additional complaints Siddharth/Lymph Reports no additional complaints Aller/Immun Reports no additional complaints Physical Exam Vital Signs: Last Vital Signs Pulse 78 10/04/25 10:23 BP 130/70 10/04/25 10:23 Pulse Ox 95 10/04/25 10:23 Oxygen Delivery Method Room Air 10/04/25 10:23 BMI result Body Mass Index 23.4 Const General: healthy appearing, comfortable, no acute distress, alert and awake Orientation/consciousness: patient oriented x3 HEENT Head: Yes normal to inspection General nose exam: No nasal polyps present and No nasal discharge present Face and sinus: Yes sinuses nontender Mouth: oropharynx normal Teeth and gingiva: dentures Throat: Yes posterior oropharynx normal Eyes General: appearance normal, both eyes and all related structures Neck Neck: Yes normal visual inspection, Yes no lymphadenopathy, Yes trachea midline and Yes no JVD Thyroid: Thyroid normal Chest Chest palpation & inspection: normal inspection of the chest, normal palpation of entire chest wall and no tenderness Resp Effort & Inspection: normal respiratory effort Auscultation: clear to auscultation bilaterally, no crackles, no rhonchi and no wheezes Cardio Palpation: normal PMI Rate: regular rate Rhythm: regular rhythm Heart sounds: no gallops and no murmurs Peripheral pulses: Peripheral pulses 2+ throughout GI Palpation (GI): Soft to palpation, nontender, No hepatosplenomegaly present and Palpable mass present Auscultation: normal bowel sounds Back/Spine/Pelvis Thoracic/Lumbar Spine: thoracic and lumbar spine normal to inspection and thoraco-lumbar ROM limited Skin General skin exam: no rashes or lesions noted Neuro General: patient oriented x3 and no focal motor deficits Cranial nerves: Yes CN's II-XII intact bilaterally Extrem General: Yes normal to inspection, Yes no clubbing, cyanosis or edema and Yes no calf tenderness Psych Appearance: grossly normal and well kempt Speech and movement: Normal speech and movement present Office Procedures Spirometry Testing Spirometry Comments: nebulizer given with albuterol, amilcar well. shannan done pr and post dilator 38019- Spirometry Challenge Results Reviewed Results Reviewed: SPIROMETRY BASELINE FVC 99 % -1 FEV1 92 % 9 % FEV1/FVC 73 9 % FEF 25-75 73 % 44 % Assessment & Plan Assessment & Plan (1) Pulmonary nodules: Comment: The pulmonary nodules are very small in size 1-2 mm, benign, . Code(s): R91.8 - Other nonspecific abnormal finding of lung field Category: Medical Plan: PATIENT IS A LOW RISK AND I DO NOT THINK SHE NEEDS TO HAVE ANY FOLLOW-UP CT SCANS. (2) Asthma: Comment: SHE HAS NO ACTIVE SYMPTOMS AT THIS TIME. PER SPIROMETRY SHE DOES HAVE, EVIDENCE OF MILD SMALL AIRWAY OBSTRUCTIVE DISORDER, WITH SIGNIFICANT IMPROVEMENT AFTER BRONCHODILATOR THERAPY. THIS IS CONSISTENT WITH VERY MILD INTERMITTENT BRONCHIAL ASTHMA . Code(s): J45.909 - Unspecified asthma, uncomplicated Category: Medical Plan: RESULTS EXPLAINED TO THE PATIENT AND SHE FEELS REASSURED. ADVISED TO KEEP ALBUTEROL ON HAND AND USE 1 OR 2 PUFFS Q 4-6 HOURS ONLY P.R.N. IF SHE HAS BOUTS OF COUGH OR WHEEZING. FOR FOLLOW-UP HE IS ADVISED TO CONTINUE WITH HER PRIMARY CARE PHYSICIAN, BUT SHE IS WELCOME TO COME FOR FOLLOW-UP HERE IF HER SYMPTOMS GET ANY WORSE Orders: Orders AMB Spirometry Testing Today R91.8 - Other nonspecific abnormal finding of lung field Coding Level of Care Code Est Pt Level 3 (76266) Diagnoses Pulmonary nodules R91.8 Asthma J45.909 CPT Codes Spirometry - CPT: 74576- Spirometry Challenge ([id number])
[2025-10-04 10:23] VITALS: BP 130/70; PULSE 78; O2SAT 95; BMI 23.4
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
--- OUTSIDE RECORDS SUMMARY | 2025-10-04 11:40 | XMS_ITS | Clinical Summary ---
Author Organization [facility] Address [address] [place] [id number] Phone Care Team Providers Care Cost Coordinator Name Role Phone Yfn Palmer MD Primary [...] Active NINA'S WORT ORAL Take by mouth daily. Active acetaminophen (TYLENOL) 500 MG tablet Take 2 tablets by mouth as needed. Active ibuprofen (ADVIL,MOTRIN) 200 MG tablet Take 2 tablets by mouth as needed. Active cholecalcifero l, vitD3,/vit K2 (VITAMIN D3-VITAMIN K2 ORAL) Take by mouth. Activ e fluorometholon e (FML LIQUIFILM) 0.1 % ophthalmic suspension 3 Active hyoscyamine sulfate (HYOSYNE ORAL) Take by mouth as needed. Active magnesium carbonate 54 mg/5 mL Liqd Take by mouth daily before breakfast. Active omega-3 fatty acids-fish oil 340-1,000 mg Cap Take by mouth daily. Active QUERCETIN ORAL Take by mouth. Active LYSINE ORAL Take by mouth daily. Active valACYclovir (VALTREX) 500 MG tablet 500 mg. 5 Active omeprazole (PRILOSEC) 20 MG capsule as needed. 5 Active methylPREDNISo lone (MEDROL DOSEPACK) 4 mg tablet As needed for flares, follow packet directions 21 tablet 2 5 Active leflunomide (ARAVA) 20 MG tabletIndicati ons:Rheumatoid arthritis involving multiple sites with positive rheumatoid factor Take 1 tablet (20 mg total) by mouth daily. 90 tablet 5 Active hydroxychloroq uine (PLAQUENIL) 200 mg tablet Take 1 tablet (200 mg total) by mouth daily. 30 tablet 5 Active leflunomide (ARAVA) 20 MG tabletIndicati ons:Rheumatoid arthritis involving multiple sites with positive rheumatoid factor Take 1 tablet (20 mg total) by mouth daily. 90 tablet 1 5 09/21/20 25 Discontinu ed(Reorder ) hydroxychloroq uine (PLAQUENIL) 200 mg tablet TAKE 1 TABLET(200 MG) BY MOUTH DAILY 30 tablet 2 5 09/21/20 25 Discontinu ed(Reorder ) Active Problems Problem Noted Date Diagnosed Date Rheumatoid arthritis involvi ng multiple sites with positive rheumatoid factor 09/10/2023 Assessment & Plan (09/20/2025 4:51 PM EDT): -- Plan to continue leflunomide 20 mg/day --Pending at this time, lab report acquisition for Lfl monitoring --Plan to continue hydroxychloroquine 200 mg/day --Pending at this time, ocular health provider office note regarding assessment of potential retinal toxicity hydroxychloroquine -- Of note, there are no baseline hand x-rays on file. No need for that today but continue to monitor. Assessment & Plan (05/06/2024 1:42 PM EDT): [...] Encounters Date Type Department Care Team Description 09/21/2025 Telephone [facility] Rheumatology [address] [place] [address] [place] [address] Yenny Dawkins, DO Medication Problem 09/21/2025 Orders Only [facility] Rheumatology [address] [place] [address] [place] [address] Yenny Dawkins DO Rheumatoid arthritis involving multiple sites with positive rheumatoid factor 09/20/2025 4:00 PM EDT Office Visit [facility] Rheumatology [address] [place] [address] [place] [address] Yenny Dawkins DO Rheumatoid arthritis involving multiple sites with positive rheumatoid factor (Primary Dx); High risk medications (not anticoagulants) long-term use; Immunosuppression due to drug therapy; Other decreased white blood cell (WBC) count 09/20/2025 Orders Only [facility] Rheumatology [address] [place] [address] [place] [address] Yenny Dawkins DO 09/20/2025 Telephone [facility] Rheumatology [address] [place] [address] [place] [address] Yenny Dawkins DO 09/20/2025 Orders Only [facility] Rheumatology [address] [place] [address] [place] [address] ProviderRaymond MD 07/09/2025 Refill [facility] Rheumatology [address] [place] [address] [place] [address] Rosetta Seo MD Medication Refill from Last [...] Sign Reading Time Taken Comments Blood Pressure 130/72 09/20/2025 3:47 PM EDT Pulse 68 09/20/2025 3:47 PM EDT Temperature - - Respiratory Rate 16 07/30/2023 1:52 PM EDT Oxygen Saturation 98% 09/20/2025 3:47 PM EDT Inhaled Oxygen Concentration - - Weight 60.3 kg (133 lb) 09/20/2025 3:47 PM EDT Height 154.9 cm (5' 0.98 ) 09/20/2025 3:47 PM ED T Body Mass Index 25.14 09/20/2025 3:47 PM EDT Plan of Treatment Upcoming Encounters Date Type Department Care Team (Late st Contact Info) Description 12/27/2025 4:30 PM EST Office Visit [facility] Rheumatology [address] [place] [address] Yenny Dawkins DO [address] [facility], [address] [place] [address] Health Maintenance Due Date Last Done Comments [...] on patient's age to complete this topic IPV VACCINES Aged Out No longer eligi ble based on patient's age to complete this topic MENINGOCOCCAL VACCINES (ACWY) Aged Out No longer eligible based on patient's age to complete this topic MENINGOCOCCAL VACCINES (B) Aged Out N o longer eligible based on patient's age to complete this topic Medical Devices Not on file Procedures Procedure Name Priority Date/Time Associated Diagnosis Comments OUTSIDE LAB Routine 09/09/2025 4:31 PM EDT COMPREHENSIVE METABOLIC PANEL (CMP) Routine 06/10/2025 1:46 PM EDT Rheumatoid arthritis involving multiple sites with positive rheumatoid factor from Last 3 Months or Most Recently Relevant to Health Maintenance Results * Outside Lab (09/09/2025 4:31 PM EDT) us Historical Provider LAB BLOOD BKR ORDERABLES Final Result * (ABNORMAL) Comprehensive metabolic panel (06/10/2025 1:46 PM EDT) SODIUM 138 133 - 146 mmol/L [facility] POTASSIUM 4.6 3.3 - 5.1 mmol/L [facility] CHLORIDE 103 96 - 108 mmol/L [facility] CO2 26 21 - 35 mmol/L [facility] BUN 9 6 - 19 mg/dL [facility] CREATININE 0.80 0.5 - 1.5 mg/dL [facility] GLUCOSE 101(H) 70 - 99 mg/dL [facility] ALBUMIN 4.3 3.9 - 4.8 g/dL [facility] TOTAL PROTEIN 6.8 6.5 - 8.0 g/dL [facility] CALCIUM 9.6 8.4 - 10.3 mg/dL [facility] ALKALINE PHOSPHATASE 83 39 - 117 U/L [facility] TOTAL BILIRUBIN 0.5 0.0 - 1.2 mg/dL [facility] AST 29 0 - 37 U/L [facility] ALT 18 0 - 40 U/L [facility] GLOBULIN 2.5 1 - 4.8 g/dL [facility] EGFR 80 >59 mL/min/1.7 3m2 [facility] Comment:Estimated glomerular filtration rate calculated using the CKD-EPI refit equation. ANION GAP 14 10 - 20 mmol/L [facility] Blood 06/10/2025 1:46 PM EDT 06/10/2025 1:51 PM EDT us Rosetta Seo MD LAB BLOOD BKR ORDERABLES Final Result [facility] [address] [place] [address] from Last 3 Months or Most Recently Relevant to Health Maintenance Insurance MEDICARE PART A & B [employer] PPO MEDICARE REPLACEMENT MEDICARE PART A & B [employer]ET[employer] O MEDICARE REPLACEMENT MEDICARE PART A & B MEDICARE PART A & B [employer] PPO MEDICARE REPLACEMENT MEDICARE PART A & B MEDICARE PART A & B MEDICARE REPLACEMENT MEDICARE PART A & B MEDICARE REPLACEMENT MEDICARE PART A & B [employer] PPO MEDICARE REPLACEMENT Care Teams Cost Coordinator Relationship Specialty Start Date End Date Yfn Palmer MD [address] [place] [address] [place] [address] PCP - General Internal Medicine 07/22/22 Additional Source Comments The information contained in this document represents components of the legal health record. It is not the complete legal health record.[facility]
--- OUTSIDE RECORDS SUMMARY | 2025-10-04 11:40 | XMS_ITS | Encounter Summary ---
Author Organization [facility] Address [address] [place] [address] Phone Care Team Providers Care Mgmt Specialist Name Role Phone Yfn Palmer MD Primary Care Provider Encounter Details Date Type Department Care Team (Late st Contact Info) Description 09/20/2025 Orders Only [facility] Rhe[facility] [address] [place] [address] Yenny Dawkins, [address] [facility], [address] [place] [address] [email or web address] Social History Tobacco Use Types Packs/Day Years Used Date Smoking Tobacco: Former Smokeless Tobacco: Never Alcohol Use Standard Drinks/Week Comments Not Currently [...] Orientation Straight 07/22/2022 10 :47 AM EDT documented as of this encounter Plan of Treatment Upcoming Encounters Date Type Department Care Team (Late st Contact Info) Description 12/27/2025 4:30 PM EST Office Visit [facility] Rheumatology [address] [place] [address] Yenny Dawkins DO [address] [facility], [address] [place] [address] [email or web address] documented as of this encounter Visit Diagnoses Not on filedocumented in this encounter Care Teams Mgmt Specialist Relationship Specialty Start Date End Date Yfn Palmer MD [address] [place] [address] [place] [address] PCP - General Internal Medicine 07/22/22 documented as of this encounter Additional Source Comments The information contained in this document represents components of the legal health record. It is not the complete legal health record.[facility]
--- OUTSIDE RECORDS SUMMARY | 2025-10-04 11:40 | XMS_ITS | Encounter Summary ---
Author Organization [facility] Address [address] [facility] [address] [place] [id number] Phone Care Team Providers Care Special Education Inclusion Teacher Name Role Phone Yfn Palmer MD Primary Care Provider Encounter Details Date Type Department Care Team (Late Contact Info) Description 09/20/2025 Orders Only [facility] Rheumatology [address] [place] [address] Provider, MD Raymond [address] [place], [place] [id number] Social History Tobacco Use Types Packs/Day Years [...] Description 12/27/2025 4:30 PM EST Office Visit [facility] Rheumatology [address] [place] [address] Yenny Dawkins DO [address] [facility], [address] [place] [address] [email or web address] documented as of this encounter Procedures Procedure Name Priority Date/Time Associated Diagnosis Comments OUTSIDE LAB Routine 09/09/2025 4:31 PM EDT documented in this encounter Results * Outside Lab (09/09/2025 4:31 PM EDT) us Historical Provider LAB BLOOD BKR ORDERABLES Final Result documented in this encounter Visit Diagnoses Not on filedocumented in this encounter Care Teams Special Education Inclusion Teacher Relationship Specialty Start Date End Date Yfn Palmer MD [address] [place] [address] [address] [place] [address] PCP - General Internal Medicine 07/22/22 documented as of this encounter Additional Source Comments The information contained in this document represents components of the legal health record. It is not the complete legal health record.[facility]
--- OUTSIDE RECORDS SUMMARY | 2025-10-04 11:40 | XMS_ITS | Encounter Summary ---
Author Organization [facility] Address [address] [place] [address] Phone Care Team Providers Care Optical Designer Name Role Phone Yfn Palmer MD Primary Care Provider Encounter Details Date Type Department Care Team (Late st Contact Info) Description 09/20/2025 Telephone [facility] Rheumatology [address] [place] [address] Yenny Dawkins, [address] [facility], [address] [place] [address] Social History Tobacco Use Types Packs/Day Years [...] AM EDT documented as of this encounter Progress Notes * Princess Prieto RN - 09/21/2025 10:04 AM EDT Patient notified of below. * Princess Prieto RN - 09/21/2025 9:37 AM EDT Message left for patient to call office * Yenny Dawkins DO - 09/20/2025 4:47 PM EDT [facility] laboratory results were obtained before end of day, but after patient left appointment. --These showed abnormality, mild low white blood cell count. Appears new. That was not present as of last check May 2025 -- I would like patient to recheck CBC in about a month, October 24, see order -- And then we will do full leflunomide check at next visit 3 months. Otherwise the lab looked good for liver, kidney and there was no inflammation. documented in this encounter Plan of Treatment Upcoming Encounters Date Type Department Care Team (Late st Contact Info) Description 12/27/2025 4:30 PM EST Office Visit [facility] Rheumatology [address] [place] [address] [place] [address] Yenny Dawkins DO [address] [facility], [address] [place] [address] Scheduled Orders Name Type Priority Associated Diagnoses Orde r Schedule CBC and differential Lab Routine High risk medications (not anticoagulants) long-term use Rheumatoid arthritis involving multiple sites with positive rheumatoid factor Expected: 10/24/2025 (Approximate), Expires: 12/21/2025 documented as of this encounter Visit Diagnoses Diagnosis High risk medications (not anticoagulants) long-term use- Primary Encounter for long-term (current) use of other medications Rheumatoid arthritis involving multiple sites with positive rheumatoid factor documented in this encounter Care Teams Optical Designer Relationship Specialty Start Date End Date Yfn Palmer MD [address] [place] [address] [address] [place] [address] PCP - General Internal Medicine 07/22/22 documented as of this encounter Additional Source Comments The information contained in this document represents components of the legal health record. It is not the complete legal health record.[facility]
--- OUTSIDE RECORDS SUMMARY | 2025-10-04 11:42 | XMS_ITS | Encounter Summary ---
Author Organization [facility] Address [address] [place] [address] Phone Care Team Providers Care Contract Modeler Name Role Phone Yfn Palmer MD Primary Care Provider Reason for Visit * Reason Onset Date Comments Medication Problem 09/21/2025 Encounter Details Date Type Department Care Team (Late st Contact Info) Description 09/21/2025 Telephone [facility] Rheumatology [address] [place] [address] Yenny Dawkins, [address] [facility], [address] [place] [address] [email or web address] Medication Problem Social History Tobacco Use Types Packs/Day Years [...] Notes * Princess Prieto RN - 09/21/2025 10:02 AM EDT Patient notified of below, states understanding of plan * Cynthia Méndez MA - 09/21/2025 9:19 AM EDT Left message for patient to call back. * Yenny Dawkins DO - 09/21/2025 9:13 AM EDT Ocular health office notes reviewed 5 pgs from September 2024, and January 2025 it appears that the office is not aware patient takes hydroxychloroquine. Not mentioned on med list No mention assessment having been done for hydroxychloroquine retinal toxicity I will do a 30-day prescription for hydroxychloroquine and in the meantime I am hopeful in the office will assess her for ocular health regarding hydroxychloroquine. If not then further prescription of this medicine on hold until ocular assessment. Leflunomide lab check was sufficient for leflunomide refill. I sent in refill. documented in this encounter Plan of Treatment Upcoming Encounters Date Type Department Care Team (Late st Contact Info) Description 12/27/2025 4:30 PM EST Office Visit [facility] Rheumatology [address] [place] [address] Yenny Dawkins DO [address] [facility], [address] [place] [address] [email or web address] documented as of this encounter Visit Diagnoses Not on filedocumented in this encounter Care Teams Contract Modeler Relationship Specialty Start Date End Date Yfn Palmer MD [address] [place] [address] [address] [place] [address] PCP - General Internal Medicine 07/22/22 documented as of this encounter Additional Source Comments The information contained in this document represents components of the legal health record. It is not the complete legal health record.[facility]
== END 2025-10-04 11:06 | disposition home or self-care (01) ==
LOC: HO.HPS 10:10
PROVIDERS: PCP Internal Medicine; Visit Provider Internal Medicine
DX: R91.8 Other nonspecific abnormal finding of lung field (principal); J45.909 Unspecified asthma, uncomplicated
CPT/HCPCS: 94060; 99213

== ENCOUNTER → 2025-10-04 10:10 | Outpatient (BNVA) | payer MEDICARE, SELFPAY | PROVIDERS: PCP Internal Medicine; Visit Provider Internal Medicine | DX: R91.8 Other nonspecific abnormal finding of lung field (principal); J45.909 Unspecified asthma, uncomplicated | CPT/HCPCS: 94060; 99212 ==